=== PATIENT | female | born 1965 | race American Indian/Alaskan Native ===

== ENCOUNTER 2016-11-18 | Outpatient (CLI) | payer MEDICAID | END 2016-11-18 23:59 | disposition critical access hospital (66) | CPT/HCPCS: A0425; A0429 ==

== ENCOUNTER 2016-11-18 21:00 | Emergency (ER) | payer MEDICAID ==
[2016-11-18] MEDS ORDERED: SODIUM CHLORIDE 0.9% 1,000 ML IV ONE (21:14)
[2016-11-18] MEDS ORDERED: NITROFURANTOIN MACRO 100 MG CAPSULE PO STA (21:49)
[2016-11-18] MEDS ORDERED: NITROFURANTOIN MACRO 100 MG CAPSULE PO ONE (21:52)
== END 2016-11-18 21:59 | disposition home or self-care (01) ==
DX: N30.00 Acute cystitis without hematuria (principal)
CPT/HCPCS: 81001; 87086; 99283; 99284; A9270

== ENCOUNTER 2022-07-22 11:35 | Emergency (ER) | payer MEDICAID ==
[2022-07-22 11:46] VITALS: BP 148/78
--- OUTSIDE RECORDS SUMMARY | 2022-07-22 11:48 | EXTERNAL MEDICAL SUMMARY RPT | Continuity of Care Document ---
:1965 Author Organization [facility] Address [address] [place] [address] Phone Allergies and Intolerances date description facility type (no date) aspirin [facility] (unknown) (no date) bupropion [facility] (unknown) (no date) diphenhydramine [facility] (unknown) (no date) doxepin [facility] (unknown) (no date) epinephrine [facility] (unknown) (no date) morphine [facility] (unknown) (no date) olanzapine [facility] (unknown) (no date) zinc [facility] (unknown) Encounters No information. Functional Status No information. Immunizations No information. Medications No information. Problems No information. Procedures No information. Results/Labs test date author facility value unit interpret ation Result panel 1 (unknown) (no (unknown) (unknown) (no value) (units (unk nown) date) unknown) (unknown) (no (unknown) (unknown) [facility] [address] [place] [address] (units (unknown) date) unknown) (unknown) (no (unknown) (unknown) [place], [place] (units ( unknown) date) [id number] unknown) (unknown) (no (unknown) (unknown) [facility] (units (unknown) date) unknown) (unknown) (no (unknown) (unknown) Signed (units (unkno wn) date) unknown) (unknown) (no (unknown) (unknown) XRay Report (units (un known) date) unknown) (unknown) (no (unknown) (unknown) (no value) (units (unk nown) date) unknown) (unknown) (no (unknown) (unknown) 05/24/22 (units (unkno wn) date) unknown) (unknown) (no (unknown) (unknown) Approved by: Usama (units (unknown) date) Mitchell Elizalde on unknown) 05/24/2022 at 9:07 (unknown) (no (unknown) (unknown) Bones and chest (units (unknown) date) wall: No unknown) suspicious bony lesions. Overlying soft tissues (unknown) (no (unknown) (unknown) COMPARISON: (units (un known) date) [facility], unknown) CR, XR CHEST 1V, 10/25/2019, 17:37. (unknown) (no (unknown) (unknown) Dictated by: Usama (units (unknown) date) Mitchell Elizalde on unknown) 05/24/2022 at 9:06 (unknown) (no (unknown) (unknown) FINDINGS: (units (unkn own) date) unknown) (unknown) (no (unknown) (unknown) IMPRESSION: No (units (unknown) date) acute unknown) cardiopulmonary pathology. Stable appearing left hilar (unknown) (no (unknown) (unknown) INDICATIONS: (units (u nknown) date) chest pain unknown) (unknown) (no (unknown) (unknown) Lungs and pleura: (units (unknown) date) Lungs are clear. unknown) No pleural effusions or pneumothorax. (unknown) (no (unknown) (unknown) Mediastinum: (units (u nknown) date) Previously unknown) described left hilar fullness is again seen not (unknown) (no (unknown) (unknown) Surgical changes (units (unknown) date) and devices: None. unknown) (unknown) (no (unknown) (unknown) TECHNIQUE: One (units (unknown) date) view of the chest unknown) was acquired. (unknown) (no (unknown) (unknown) This can be (units (un known) date) further evaluated unknown) with CT of chest as an outpatient if clinically (unknown) (no (unknown) (unknown) changed in (units (unk nown) date) appearance from unknown) prior study. Heart size is normal. (unknown) (no (unknown) (unknown) unremarkable. (units ( unknown) date) unknown) (unknown) (no (unknown) (unknown) [id number] (units (unkno wn) date) unknown) (unknown) (no (unknown) (unknown) Accession Number: (units (unknown) date) [id number] unknown) (unknown) (no (unknown) (unknown) Age/Sex: 57 / F (units (unknown) date) Date of Service: unknown) (unknown) (no (unknown) (unknown) : 1965 (units (unknown) date) Acct:[id number] unknown) (unknown) (no (unknown) (unknown) Loc: ED (units (unkno wn) date) unknown) (unknown) (no (unknown) (unknown) Ordering (units (unkno wn) date) Provider: unknown) Joceline Lara D.O. (unknown) (no (unknown) (unknown) PROCEDURE: XR (units ( unknown) date) CHEST 1V unknown) (unknown) (no (unknown) (unknown) Patient: (units (unkno wn) date) Yenni Robbins unknown) MR#: [id number] (unknown) (no (unknown) (unknown) Procedure: XR (units ( unknown) date) chest 1V unknown) (unknown) (no (unknown) (unknown) appear (units (unkno wn) date) unknown) (unknown) (no (unknown) (unknown) fullness. (units (unkn own) date) unknown) (unknown) (no (unknown) (unknown) indicated. (units (unk nown) date) unknown) (unknown) (no (unknown) (unknown) significantly (units ( unknown) date) unknown) Result panel 2 (unknown) (no (unknown) (unknown) (no value) (units (unk nown) date) unknown) (unknown) (no (unknown) (unknown) Date of Service: (units (unknown) date) 05/24/22 unknown) (unknown) (no (unknown) (unknown) (no value) (units (unk nown) date) unknown) (unknown) (no (unknown) (unknown) 05/24/22 09:47 (units (unknown) date) unknown) (unknown) (no (unknown) (unknown) Allergies (units (unkn own) date) unknown) (unknown) (no (unknown) (unknown) ED Orders (units (unkn own) date) unknown) (unknown) (no (unknown) (unknown) Emergency Report (units (unknown) date) unknown) (unknown) (no (unknown) (unknown) Home Medications (units (unknown) date) unknown) (unknown) (no (unknown) (unknown) [facility] (units (unknown) date) [address] unknown) [place] [address] (unknown) (no (unknown) (unknown) Vital Signs - 8 (units (unknown) date) hr unknown) (unknown) (no (unknown) (unknown) (no value) (units (unk nown) date) unknown) (unknown) (no (unknown) (unknown) No Known Home (units ( unknown) date) Medications unknown) (unknown) (no (unknown) (unknown) 05/24/22 (units (unkno wn) date) unknown) (unknown) (no (unknown) (unknown) Medication (units (unk nown) date) Instructions unknown) Recorded Confirmed (unknown) (no (unknown) (unknown) 05/24/22 09:40 (units (unknown) date) unknown) (unknown) (no (unknown) (unknown) 05/24/22 09:47 (units (unknown) date) unknown) (unknown) (no (unknown) (unknown) 09:41 (units (unkno wn) date) unknown) (unknown) (no (unknown) (unknown) [id number] (units (unkno wn) date) unknown) (unknown) (no (unknown) (unknown) Age/Sex: 57 / F (units (unknown) date) unknown) (unknown) (no (unknown) (unknown) Allergy/AdvReac (units (unknown) date) Type Severity unknown) Reaction Status Date / Time (unknown) (no (unknown) (unknown) Anxiety (Unknown) (units (unknown) date) unknown) (unknown) (no (unknown) (unknown) Arthritis (units (unkn own) date) (Unknown) unknown) (unknown) (no (unknown) (unknown) Blood Pressure (units (unknown) date) 132/83 05/24/22 unknown) 09:41 (unknown) (no (unknown) (unknown) Blood Pressure (units (unknown) date) 132/83 unknown) (unknown) (no (unknown) (unknown) Chief Complaint: (units (unknown) date) Chest Pain unknown) (unknown) (no (unknown) (unknown) Complete Blood (units (unknown) date) Count AUTO DIFF unknown) Stat (unknown) (no (unknown) (unknown) Comprehensive (units ( unknown) date) Metabolic Panel unknown) Stat (unknown) (no (unknown) (unknown) Course (units (unkno wn) date) unknown) (unknown) (no (unknown) (unknown) : 1965 (units (unknown) date) Acct:[id number] unknown) (unknown) (no (unknown) (unknown) Degenerative disc (units (unknown) date) disease (Unknown) unknown) (unknown) (no (unknown) (unknown) Departure (units (unkn own) date) unknown) (unknown) (no (unknown) (unknown) Discharge Plan (units (unknown) date) unknown) (unknown) (no (unknown) (unknown) EKG-12 Lead Stat (units (unknown) date) unknown) (unknown) (no (unknown) (unknown) ER Physician: (units ( unknown) date) Joceline Lara unknown) D.O. (unknown) (no (unknown) (unknown) Exam (units (unkno wn) date) unknown) (unknown) (no (unknown) (unknown) Family History (units (unknown) date) (Reviewed 10/26/19 unknown) @ 01:16 by Bony Bonilla DO) (unknown) (no (unknown) (unknown) General (units (unkno wn) date) unknown) (unknown) (no (unknown) (unknown) H/O tubal (units (unkn own) date) ligation (1987) unknown) (unknown) (no (unknown) (unknown) HPI - Chest Pain (units (unknown) date) unknown) (unknown) (no (unknown) (unknown) Initial Vital (units ( unknown) date) Signs unknown) (unknown) (no (unknown) (unknown) Initial Vital (units ( unknown) date) Signs: unknown) (unknown) (no (unknown) (unknown) Lab Data (units (unkno wn) date) unknown) (unknown) (no (unknown) (unknown) Lipase Stat (units (un known) date) unknown) (unknown) (no (unknown) (unknown) MDM - Chest Pain (units (unknown) date) unknown) (unknown) (no (unknown) (unknown) Magnesium Stat (units (unknown) date) unknown) (unknown) (no (unknown) (unknown) Medical History (units (unknown) date) (Updated 11/09/19 unknown) @ 00:00 by ) (unknown) (no (unknown) (unknown) Mehran Asencio, (units (unknown) date) MD [Primary Care unknown) Provider] - (unknown) (no (unknown) (unknown) Mode of arrival: (units (unknown) date) Ambulatory unknown) (unknown) (no (unknown) (unknown) Mother (units (unknown) date) No problems noted. unknown) (unknown) (no (unknown) (unknown) No Action (units (unkn own) date) unknown) (unknown) (no (unknown) (unknown) No Known Home (units ( unknown) date) Medications unknown) 03/27/18 10/31/19 (unknown) (no (unknown) (unknown) Ordered: (units (unkno wn) date) unknown) (unknown) (no (unknown) (unknown) Orders (units (unkno wn) date) unknown) (unknown) (no (unknown) (unknown) Oxygen Delivery (units (unknown) date) Method 05/24/22 unknown) 09:41 (unknown) (no (unknown) (unknown) Oxygen Delivery (units (unknown) date) Method Room Air unknown) (unknown) (no (unknown) (unknown) PTSD (units (unkno wn) date) (post-traumatic unknown) stress disorder) (Unknown) (unknown) (no (unknown) (unknown) Patient History (units (unknown) date) unknown) (unknown) (no (unknown) (unknown) Patient: (units (unkno wn) date) Yenni Robbins unknown) MR#: [id number] (unknown) (no (unknown) (unknown) Prescriptions: (units (unknown) date) unknown) (unknown) (no (unknown) (unknown) Pulse Oximetry (units (unknown) date) 100 05/24/22 09:41 unknown) (unknown) (no (unknown) (unknown) Pulse Oximetry (units (unknown) date) 100 unknown) (unknown) (no (unknown) (unknown) Pulse Rate 87 (units ( unknown) date) 05/24/22 09:41 unknown) (unknown) (no (unknown) (unknown) Pulse Rate 87 (units ( unknown) date) unknown) (unknown) (no (unknown) (unknown) Referrals: (units (unk nown) date) unknown) (unknown) (no (unknown) (unknown) Related Data (units (u nknown) date) unknown) (unknown) (no (unknown) (unknown) Respiratory Rate (units (unknown) date) 18 05/24/22 09:41 unknown) (unknown) (no (unknown) (unknown) Respiratory Rate (units (unknown) date) 18 unknown) (unknown) (no (unknown) (unknown) Result diagrams: (units (unknown) date) unknown) (unknown) (no (unknown) (unknown) Salivary gland (units (unknown) date) disorder unknown) (unknown) (no (unknown) (unknown) Shoulder pain, (units (unknown) date) left (-2015) unknown) (unknown) (no (unknown) (unknown) Signed By: (units (unk nown) date) unknown) (unknown) (no (unknown) (unknown) Smoking Status: (units (unknown) date) Former smoker unknown) (unknown) (no (unknown) (unknown) Smoking Status: (units (unknown) date) Former smoker unknown) (unknown) (no (unknown) (unknown) Social History (units (unknown) date) (Reviewed 10/26/19 unknown) @ 01:16 by Bony Bonilla DO) (unknown) (no (unknown) (unknown) Source: patient (units (unknown) date) unknown) (unknown) (no (unknown) (unknown) Stated Complaint: (units (unknown) date) Chest pain unknown) (unknown) (no (unknown) (unknown) Substance Use (units ( unknown) date) Type: does not use unknown) (unknown) (no (unknown) (unknown) Surgical History (units (unknown) date) (Reviewed 10/26/19 unknown) @ 01:16 by Bony Bonilla DO) (unknown) (no (unknown) (unknown) Temperature 98.9 (units (unknown) date) F 05/24/22 09:41 unknown) (unknown) (no (unknown) (unknown) Temperature 98.9 (units (unknown) date) F unknown) (unknown) (no (unknown) (unknown) Time Seen by (units (u nknown) date) Provider: 05/24/22 unknown) 09:58 (unknown) (no (unknown) (unknown) Troponin + CK (units ( unknown) date) Cardiac Panel Stat unknown) (unknown) (no (unknown) (unknown) Vital Signs (units (un known) date) unknown) (unknown) (no (unknown) (unknown) Vital signs: (units (u nknown) date) unknown) (unknown) (no (unknown) (unknown) XR chest 1V Stat (units (unknown) date) unknown) (unknown) (no (unknown) (unknown) [DIPHENHYDRAMINE] (units (unknown) date) unknown) (unknown) (no (unknown) (unknown) [Embedded Image (units (unknown) date) Not Available] unknown) (unknown) (no (unknown) (unknown) aspirin [ASPIRIN] (units (unknown) date) Allergy Unknown unknown) Verified 05/24/22 09:45 (unknown) (no (unknown) (unknown) beea venom (units (unk nown) date) Allergy Unknown unknown) Uncoded 05/24/22 09:45 (unknown) (no (unknown) (unknown) bupropion (units (unkn own) date) [BUPROPION] unknown) Allergy Unknown Verified 05/24/22 09:45 (unknown) (no (unknown) (unknown) codiene Allergy (units (unknown) date) Unknown Uncoded unknown) 05/24/22 09:45 (unknown) (no (unknown) (unknown) diphenhydramine (units (unknown) date) Allergy Unknown unknown) Verified 05/24/22 09:45 (unknown) (no (unknown) (unknown) doxepin [DOXEPIN] (units (unknown) date) Allergy Unknown unknown) Verified 05/24/22 09:45 (unknown) (no (unknown) (unknown) epinephrine (units (un known) date) [EPINEPHRINE] unknown) Allergy Unknown Verified 05/24/22 09:45 (unknown) (no (unknown) (unknown) minerals Allergy (units (unknown) date) Unknown Uncoded unknown) 05/24/22 09:45 (unknown) (no (unknown) (unknown) morphine (units (unkno wn) date) [MORPHINE] Allergy unknown) Unknown Verified 05/24/22 09:45 (unknown) (no (unknown) (unknown) olanzapine (units (unk nown) date) [OLANZAPINE] unknown) Allergy Unknown Verified 05/24/22 09:45 (unknown) (no (unknown) (unknown) zinc [ZINC] (units (un known) date) Allergy Unknown unknown) Verified 05/24/22 09:45 Result panel 3 (unknown) (no (unknown) (unknown) (no value) (units (unk nown) date) unknown) (unknown) (no (unknown) (unknown) Date of Service: (units (unknown) date) 05/24/22 unknown) (unknown) (no (unknown) (unknown) (no value) (units (unk nown) date) unknown) (unknown) (no (unknown) (unknown) 05/24/22 09:47 (units (unknown) date) unknown) (unknown) (no (unknown) (unknown) Allergies (units (unkn own) date) unknown) (unknown) (no (unknown) (unknown) ED Orders (units (unkn own) date) unknown) (unknown) (no (unknown) (unknown) Emergency Report (units (unknown) date) unknown) (unknown) (no (unknown) (unknown) Home Medications (units (unknown) date) unknown) (unknown) (no (unknown) (unknown) [facility] (units (unknown) date) [address] [place] [address] unknown) [place] [address] (unknown) (no (unknown) (unknown) Vital Signs - 8 (units (unknown) date) hr unknown) (unknown) (no (unknown) (unknown) (no value) (units (unk nown) date) unknown) (unknown) (no (unknown) (unknown) No Known Home (units ( unknown) date) Medications unknown) (unknown) (no (unknown) (unknown) 05/24/22 (units (unkno wn) date) unknown) (unknown) (no (unknown) (unknown) Medication (units (unk nown) date) Instructions unknown) Recorded Confirmed (unknown) (no (unknown) (unknown) pain. (units (unkno wn) date) unknown) (unknown) (no (unknown) (unknown) 05/24/22 09:40 (units (unknown) date) unknown) (unknown) (no (unknown) (unknown) 05/24/22 09:47 (units (unknown) date) unknown) (unknown) (no (unknown) (unknown) 09:41 (units (unkno wn) date) unknown) (unknown) (no (unknown) (unknown) 12 point review (units (unknown) date) of systems is unknown) negative except for those stated above and HPI (unknown) (no (unknown) (unknown) [id number] (units (unkno wn) date) unknown) (unknown) (no (unknown) (unknown) ABDOMEN: Soft, (units (unknown) date) nontender. unknown) Normoactive bowel sounds all 4 quadrants. No (unknown) (no (unknown) (unknown) Age/Sex: 57 / F (units (unknown) date) unknown) (unknown) (no (unknown) (unknown) Allergy/AdvReac (units (unknown) date) Type Severity unknown) Reaction Status Date / Time (unknown) (no (unknown) (unknown) Anxiety (Unknown) (units (unknown) date) unknown) (unknown) (no (unknown) (unknown) Arthritis (units (unkn own) date) (Unknown) unknown) (unknown) (no (unknown) (unknown) Blood Pressure (units (unknown) date) 132/83 05/24/22 unknown) 09:41 (unknown) (no (unknown) (unknown) Blood Pressure (units (unknown) date) 13283 unknown) (unknown) (no (unknown) (unknown) CARDIOVASCULAR: (units (unknown) date) Denies chest pain, unknown) palpitations, orthopnea, edema (unknown) (no (unknown) (unknown) CARDIOVASCULAR: (units (unknown) date) Regular rate and unknown) rhythm without murmurs, rubs or gallops. (unknown) (no (unknown) (unknown) Chief Complaint: (units (unknown) date) Chest Pain unknown) (unknown) (no (unknown) (unknown) Complete Blood (units (unknown) date) Count AUTO DIFF unknown) Stat (unknown) (no (unknown) (unknown) Comprehensive (units ( unknown) date) Metabolic Panel unknown) Stat (unknown) (no (unknown) (unknown) Course (units (unkno wn) date) unknown) (unknown) (no (unknown) (unknown) : 1965 (units (unknown) date) Acct:[id number] unknown) (unknown) (no (unknown) (unknown) Degenerative disc (units (unknown) date) disease (Unknown) unknown) (unknown) (no (unknown) (unknown) Departure (units (unkn own) date) unknown) (unknown) (no (unknown) (unknown) Discharge Plan (units (unknown) date) unknown) (unknown) (no (unknown) (unknown) ECG Data (units (unkno wn) date) unknown) (unknown) (no (unknown) (unknown) EKG-12 Lead Stat (units (unknown) date) unknown) (unknown) (no (unknown) (unknown) ER Physician: (units ( unknown) date) Joceline Lara unknown) D.O. (unknown) (no (unknown) (unknown) EXTREMITIES: (units (u nknown) date) Normal range of unknown) motion, no clubbing or edema. Neurovascularly (unknown) (no (unknown) (unknown) Exam (units (unkno wn) date) unknown) (unknown) (no (unknown) (unknown) Family History (units (unknown) date) (Reviewed 05/24/22 unknown) @ 10:21 by Joceline Lara DO) (unknown) (no (unknown) (unknown) GASTROINTESTINAL: (units (unknown) date) Denies nausea, unknown) vomiting, abdominal pain, diarrhea, (unknown) (no (unknown) (unknown) GENERAL: Pleasant (units (unknown) date) alert 57-year-old unknown) female (unknown) (no (unknown) (unknown) GENERAL: Denies (units (unknown) date) chills, fatigue, unknown) malaise, fever, sweats, travel (unknown) (no (unknown) (unknown) : Denies (units (unkn own) date) dysuria, unknown) frequency, incontinence, hematuria, urinary retention, flank (unknown) (no (unknown) (unknown) General (units (unkno wn) date) unknown) (unknown) (no (unknown) (unknown) H/O tubal (units (unkn own) date) ligation (1986) unknown) (unknown) (no (unknown) (unknown) HEENT: Denies (units ( unknown) date) sinus pain, ear unknown) pain, sore throat, difficulty swallowing, neck (unknown) (no (unknown) (unknown) HEENT: Head (units (un known) date) atraumatic,EOMI, unknown) pupils reactive, face symmetric, moist mucous (unknown) (no (unknown) (unknown) HPI - Chest Pain (units (unknown) date) unknown) (unknown) (no (unknown) (unknown) HPI narrative: (units (unknown) date) unknown) (unknown) (no (unknown) (unknown) History of (units (unk nown) date) Present Illness unknown) (unknown) (no (unknown) (unknown) Initial Vital (units ( unknown) date) Signs unknown) (unknown) (no (unknown) (unknown) Initial Vital (units ( unknown) date) Signs: unknown) (unknown) (no (unknown) (unknown) Interpretation: (units (unknown) date) unknown) (unknown) (no (unknown) (unknown) October she was (units (unknown) date) very active able unknown) to do 51 pushups at a time she was training. (unknown) (no (unknown) (unknown) Lab Data (units (unkno wn) date) unknown) (unknown) (no (unknown) (unknown) Lipase Stat (units (un known) date) unknown) (unknown) (no (unknown) (unknown) MDM - Chest Pain (units (unknown) date) unknown) (unknown) (no (unknown) (unknown) MUSCULOSKELETAL: (units (unknown) date) Denies weakness, unknown) joint pain, or bony pain (unknown) (no (unknown) (unknown) Magnesium Stat (units (unknown) date) unknown) (unknown) (no (unknown) (unknown) Medical History (units (unknown) date) (Reviewed 05/24/22 unknown) @ 10:21 by Joceline Lara DO) (unknown) (no (unknown) (unknown) Mehran Asencio, (units (unknown) date) MD [Primary Care unknown) Provider] - (unknown) (no (unknown) (unknown) Mode of arrival: (units (unknown) date) Ambulatory unknown) (unknown) (no (unknown) (unknown) Mother (units (unknown) date) No problems noted. unknown) (unknown) (no (unknown) (unknown) NEUROLOGIC: (units (un known) date) Denies weakness, unknown) dizziness, headache, numbness, change in speech, (unknown) (no (unknown) (unknown) NEUROLOGICAL: (units ( unknown) date) Alert and oriented unknown) x4.Normal gait and speech. (unknown) (no (unknown) (unknown) Narrative: (units (unk nown) date) unknown) (unknown) (no (unknown) (unknown) No Action (units (unkn own) date) unknown) (unknown) (no (unknown) (unknown) No Known Home (units ( unknown) date) Medications unknown) 03/27/18 10/31/19 (unknown) (no (unknown) (unknown) Normal sinus (units (u nknown) date) rhythm rate 85 NE unknown) interval 130 QRS [address] changes or T- (unknown) (no (unknown) (unknown) Ordered: (units (unkno wn) date) unknown) (unknown) (no (unknown) (unknown) Orders (units (unkno wn) date) unknown) (unknown) (no (unknown) (unknown) Oxygen Delivery (units (unknown) date) Method 05/24/22 unknown) 09:41 (unknown) (no (unknown) (unknown) Oxygen Delivery (units (unknown) date) Method Room Air unknown) (unknown) (no (unknown) (unknown) PSYCHIATRIC: No (units (unknown) date) concerning unknown) psychosocial issues. (unknown) (no (unknown) (unknown) PTSD (units (unkno wn) date) (post-traumatic unknown) stress disorder) (Unknown) (unknown) (no (unknown) (unknown) Patient History (units (unknown) date) unknown) (unknown) (no (unknown) (unknown) Patient is a (units (u nknown) date) 57-year-old female unknown) who does not go to doctors presenting with (unknown) (no (unknown) (unknown) Patient: (units (unkno wn) date) Yenni Robbins F unknown) MR#: [id number] (unknown) (no (unknown) (unknown) Prescriptions: (units (unknown) date) unknown) (unknown) (no (unknown) (unknown) Pulse Oximetry (units (unknown) date) 100 05/24/22 09:41 unknown) (unknown) (no (unknown) (unknown) Pulse Oximetry (units (unknown) date) 100 unknown) (unknown) (no (unknown) (unknown) Pulse Rate 87 (units ( unknown) date) 05/24/22 09:41 unknown) (unknown) (no (unknown) (unknown) Pulse Rate 87 (units ( unknown) date) unknown) (unknown) (no (unknown) (unknown) RESPIRATORY: See (units (unknown) date) HPI unknown) (unknown) (no (unknown) (unknown) RESPIRATORY: (units (u nknown) date) Breath sounds unknown) equal bilaterally, no wheezes rales or rhonchi. (unknown) (no (unknown) (unknown) Referrals: (units (unk nown) date) unknown) (unknown) (no (unknown) (unknown) Related Data (units (u nknown) date) unknown) (unknown) (no (unknown) (unknown) Respiratory Rate (units (unknown) date) 18 05/24/22 09:41 unknown) (unknown) (no (unknown) (unknown) Respiratory Rate (units (unknown) date) 18 unknown) (unknown) (no (unknown) (unknown) Result diagrams: (units (unknown) date) unknown) (unknown) (no (unknown) (unknown) Review of Systems (units (unknown) date) unknown) (unknown) (no (unknown) (unknown) SKIN: No rash, no (units (unknown) date) erythema, no unknown) pruritus (unknown) (no (unknown) (unknown) SKIN: Warm, dry, (units (unknown) date) no laceration, no unknown) petechiae, no rashes or lesions. (unknown) (no (unknown) (unknown) Salivary gland (units (unknown) date) disorder unknown) (unknown) (no (unknown) (unknown) Shoulder pain, (units (unknown) date) left (-2015) unknown) (unknown) (no (unknown) (unknown) Signed By: (units (unk nown) date) unknown) (unknown) (no (unknown) (unknown) Since February she has (units (unknown) date) also lost unknown) significant amount of weight without trying. She (unknown) (no (unknown) (unknown) Smoking Status: (units (unknown) date) Former smoker unknown) (unknown) (no (unknown) (unknown) Smoking Status: (units (unknown) date) Former smoker unknown) (unknown) (no (unknown) (unknown) Social History (units (unknown) date) (Reviewed 05/24/22 unknown) @ 10:21 by Joceline Lara DO) (unknown) (no (unknown) (unknown) Source: patient (units (unknown) date) unknown) (unknown) (no (unknown) (unknown) Stated Complaint: (units (unknown) date) Chest pain unknown) (unknown) (no (unknown) (unknown) Substance Use (units ( unknown) date) Type: does not use unknown) (unknown) (no (unknown) (unknown) Surgical History (units (unknown) date) (Reviewed 05/24/22 unknown) @ 10:21 by Joceline Lara DO) (unknown) (no (unknown) (unknown) Temperature 98.9 (units (unknown) date) F 05/24/22 09:41 unknown) (unknown) (no (unknown) (unknown) Temperature 98.9 (units (unknown) date) F unknown) (unknown) (no (unknown) (unknown) Time Seen by (units (u nknown) date) Provider: 05/24/22 unknown) 09:58 (unknown) (no (unknown) (unknown) Troponin + CK (units ( unknown) date) Cardiac Panel Stat unknown) (unknown) (no (unknown) (unknown) Vital Signs (units (un known) date) unknown) (unknown) (no (unknown) (unknown) Vital signs: (units (u nknown) date) unknown) (unknown) (no (unknown) (unknown) XR chest 1V Stat (units (unknown) date) unknown) (unknown) (no (unknown) (unknown) [DIPHENHYDRAMINE] (units (unknown) date) unknown) (unknown) (no (unknown) (unknown) [Embedded Image (units (unknown) date) Not Available] unknown) (unknown) (no (unknown) (unknown) aspirin [ASPIRIN] (units (unknown) date) Allergy Unknown unknown) Verified 05/24/22 09:45 (unknown) (no (unknown) (unknown) beea venom (units (unk nown) date) Allergy Unknown unknown) Uncoded 05/24/22 09:45 (unknown) (no (unknown) (unknown) been ongoing since (units (unknown) date) February of 2022. She unknown) has had increasing shortness of breath with (unknown) (no (unknown) (unknown) bupropion (units (unkn own) date) [BUPROPION] unknown) Allergy Unknown Verified 05/24/22 09:45 (unknown) (no (unknown) (unknown) can no longer (units ( unknown) date) full flight of unknown) stairs. Which is very abnormal for her she in (unknown) (no (unknown) (unknown) codiene Allergy (units (unknown) date) Unknown Uncoded unknown) 05/24/22 09:45 (unknown) (no (unknown) (unknown) confusion (units (unkn own) date) unknown) (unknown) (no (unknown) (unknown) constipation, (units ( unknown) date) melena. unknown) (unknown) (no (unknown) (unknown) denies any blood (units (unknown) date) in her stool. unknown) (unknown) (no (unknown) (unknown) diphenhydramine (units (unknown) date) Allergy Unknown unknown) Verified 05/24/22 09:45 (unknown) (no (unknown) (unknown) doxepin [DOXEPIN] (units (unknown) date) Allergy Unknown unknown) Verified 05/24/22 09:45 (unknown) (no (unknown) (unknown) epinephrine (units (un known) date) [EPINEPHRINE] unknown) Allergy Unknown Verified 05/24/22 09:45 (unknown) (no (unknown) (unknown) exertion since (units (unknown) date) then as well. As unknown) gotten worse over last 3 days. She says she (unknown) (no (unknown) (unknown) guarding or (units (un known) date) rebound.s unknown) (unknown) (no (unknown) (unknown) intact (units (unkno wn) date) unknown) (unknown) (no (unknown) (unknown) membranes (units (unkn own) date) unknown) (unknown) (no (unknown) (unknown) minerals Allergy (units (unknown) date) Unknown Uncoded unknown) 05/24/22 09:45 (unknown) (no (unknown) (unknown) morphine (units (unkno wn) date) [MORPHINE] Allergy unknown) Unknown Verified 05/24/22 09:45 (unknown) (no (unknown) (unknown) olanzapine (units (unk nown) date) [OLANZAPINE] unknown) Allergy Unknown Verified 05/24/22 09:45 (unknown) (no (unknown) (unknown) pain (units (unkno wn) date) unknown) (unknown) (no (unknown) (unknown) shortness of (units (un known) date) breath and chest unknown) fluttering which she thinks is her lung. This has (unknown) (no (unknown) (unknown) wave inversion (units (unknown) date) unknown) (unknown) (no (unknown) (unknown) zinc [ZINC] (units (un known) date) Allergy Unknown unknown) Verified 05/24/22 09:45 Result panel 4 (unknown) (no date) (unknown) (unknown) 0 /uL (unkn own) (unknown) (no date) (unknown) (unknown) 0.5 % (unkn own) (unknown) (no date) (unknown) (unknown) 0.8 % (unkn own) (unknown) (no date) (unknown) (unknown) 100 /uL (unkn own) (unknown) (no date) (unknown) (unknown) 13.6 % (unkn own) (unknown) (no date) (unknown) (unknown) 15.0 g/dL (unkn own) (unknown) (no date) (unknown) (unknown) 2300 /uL (unkn own) (unknown) (no date) (unknown) (unknown) 27.0 % (unkn own) (unknown) (no date) (unknown) (unknown) 28.7 PG (unkn own) (unknown) (no date) (unknown) (unknown) 289 X10 3/uL (unkn own) (unknown) (no date) (unknown) (unknown) 34.7 % (unkn own) (unknown) (no date) (unknown) (unknown) 43.2 % (unkn own) (unknown) (no date) (unknown) (unknown) 5.22 X10 6/uL (unkn own) (unknown) (no date) (unknown) (unknown) 5.9 % (unkn own) (unknown) (no date) (unknown) (unknown) 500 /uL (unkn own) (unknown) (no date) (unknown) (unknown) 5500 /uL (unkn own) (unknown) (no date) (unknown) (unknown) 65.8 % (unkn own) (unknown) (no date) (unknown) (unknown) 8.4 X10 3/uL (unkn own) (unknown) (no date) (unknown) (unknown) 82.7 fL (unkn own) Result panel 5 (unknown) (no date) (unknown) (unknown) > 60 mL/min (unkn own) (unknown) (no date) (unknown) (unknown) 0.5 mg/dL (unkn own) (unknown) (no date) (unknown) (unknown) 0.74 mg/dL (unkn own) (unknown) (no date) (unknown) (unknown) 1.9 (units (unkn own) unknown) (unknown) (no date) (unknown) (unknown) 107 U/L (unkn own) (unknown) (no date) (unknown) (unknown) 13 mg/dL (unkn own) (unknown) (no date) (unknown) (unknown) 137 mg/dL (unkn own) (unknown) (no date) (unknown) (unknown) 137 mmol/L (unkn own) (unknown) (no date) (unknown) (unknown) 17.6 (units (unkn own) unknown) (unknown) (no date) (unknown) (unknown) 2.1 mg/dL (unkn own) (unknown) (no date) (unknown) (unknown) 2.6 g/dL (unkn own) (unknown) (no date) (unknown) (unknown) 27 IU/L (unkn own) (unknown) (no date) (unknown) (unknown) 29 IU/L (unkn own) (unknown) (no date) (unknown) (unknown) 29 mmol/L (unkn own) (unknown) (no date) (unknown) (unknown) 3.6 mmol/L (unkn own) (unknown) (no date) (unknown) (unknown) 5.0 g/dL (unkn own) (unknown) (no date) (unknown) (unknown) 57 U/L (unkn own) (unknown) (no date) (unknown) (unknown) 66 U/L (unkn own) (unknown) (no date) (unknown) (unknown) 7.6 g/dL (unkn own) (unknown) (no date) (unknown) (unknown) 9.2 mg/dL (unkn own) (unknown) (no date) (unknown) (unknown) 99 mmol/L (unkn own) (unknown) (no date) (unknown) (unknown) Test not % (unkn own) performed (unknown) (no date) (unknown) (unknown) Test not ng/mL (unkn own) performed Result panel 6 (unknown) (no date) (unknown) (unknown) > 60 mL/min (unkn own) (unknown) (no date) (unknown) (unknown) < 0.012 ng/mL (unkn own) (unknown) (no date) (unknown) (unknown) 0.5 mg/dL (unkn own) (unknown) (no date) (unknown) (unknown) 0.74 mg/dL (unkn own) (unknown) (no date) (unknown) (unknown) 1.9 (units (unkn own) unknown) (unknown) (no date) (unknown) (unknown) 107 U/L (unkn own) (unknown) (no date) (unknown) (unknown) 13 mg/dL (unkn own) (unknown) (no date) (unknown) (unknown) 137 mg/dL (unkn own) (unknown) (no date) (unknown) (unknown) 137 mmol/L (unkn own) (unknown) (no date) (unknown) (unknown) 17.6 (units (unkn own) unknown) (unknown) (no date) (unknown) (unknown) 2.1 mg/dL (unkn own) (unknown) (no date) (unknown) (unknown) 2.6 g/dL (unkn own) (unknown) (no date) (unknown) (unknown) 27 IU/L (unkn own) (unknown) (no date) (unknown) (unknown) 29 IU/L (unkn own) (unknown) (no date) (unknown) (unknown) 29 mmol/L (unkn own) (unknown) (no date) (unknown) (unknown) 3.6 mmol/L (unkn own) (unknown) (no date) (unknown) (unknown) 5.0 g/dL (unkn own) (unknown) (no date) (unknown) (unknown) 57 U/L (unkn own) (unknown) (no date) (unknown) (unknown) 66 U/L (unkn own) (unknown) (no date) (unknown) (unknown) 7.6 g/dL (unkn own) (unknown) (no date) (unknown) (unknown) 9.2 mg/dL (unkn own) (unknown) (no date) (unknown) (unknown) 99 mmol/L (unkn own) (unknown) (no date) (unknown) (unknown) Test not % (unkn own) performed (unknown) (no date) (unknown) (unknown) Test not ng/mL (unkn own) performed Result panel 7 (unknown) (no date) (unknown) (unknown) 210 ng/mL (unkn own) Result panel 8 (unknown) (no date) (unknown) (unknown) 39 pg/mL (unkn own) Result panel 9 (unknown) (no (unknown) (unknown) (no value) (units (unk nown) date) unknown) (unknown) (no (unknown) (unknown) Date of Service: (units (unknown) date) 05/24/22 unknown) (unknown) (no (unknown) (unknown) (no value) (units (unk nown) date) unknown) (unknown) (no (unknown) (unknown) 05/24/22 09:47 (units (unknown) date) unknown) (unknown) (no (unknown) (unknown) Allergies (units (unkn own) date) unknown) (unknown) (no (unknown) (unknown) ED Orders (units (unkn own) date) unknown) (unknown) (no (unknown) (unknown) Emergency Report (units (unknown) date) unknown) (unknown) (no (unknown) (unknown) Home Medications (units (unknown) date) unknown) (unknown) (no (unknown) (unknown) [facility] (units (unknown) date) [address] [place] [address] unknown) [place] [address] (unknown) (no (unknown) (unknown) Lab Results (units (un known) date) unknown) (unknown) (no (unknown) (unknown) Vital Signs - 8 (units (unknown) date) hr unknown) (unknown) (no (unknown) (unknown) (no value) (units (unk nown) date) unknown) (unknown) (no (unknown) (unknown) 05/24/22 05/24/22 (units (unknown) date) 05/24/22 unknown) Range/Units (unknown) (no (unknown) (unknown) 05/24/22 (units (unkno wn) date) Range/Units unknown) (unknown) (no (unknown) (unknown) 09:47 (units (unkno wn) date) unknown) (unknown) (no (unknown) (unknown) 09:47 09:47 09:47 (units (unknown) date) unknown) (unknown) (no (unknown) (unknown) No Known Home (units ( unknown) date) Medications unknown) (unknown) (no (unknown) (unknown) 05/24/22 (units (unkno wn) date) unknown) (unknown) (no (unknown) (unknown) Medication (units (unk nown) date) Instructions unknown) Recorded Confirmed (unknown) (no (unknown) (unknown) pain. (units (unkno wn) date) unknown) (unknown) (no (unknown) (unknown) 05/24/22 09:40 (units (unknown) date) unknown) (unknown) (no (unknown) (unknown) 05/24/22 09:47 (units (unknown) date) unknown) (unknown) (no (unknown) (unknown) 09:41 (units (unkno wn) date) unknown) (unknown) (no (unknown) (unknown) 12 point review (units (unknown) date) of systems is unknown) negative except for those stated above and HPI (unknown) (no (unknown) (unknown) [id number] (units (unkno wn) date) unknown) (unknown) (no (unknown) (unknown) ABDOMEN: Soft, (units (unknown) date) nontender. unknown) Normoactive bowel sounds all 4 quadrants. No (unknown) (no (unknown) (unknown) ALT (<35) IU/L (units (unknown) date) unknown) (unknown) (no (unknown) (unknown) ALT 27 (<35) IU/L (units (unknown) date) unknown) (unknown) (no (unknown) (unknown) AST (14-36) IU/L (units (unknown) date) unknown) (unknown) (no (unknown) (unknown) AST 29 (14-36) (units (unknown) date) IU/L unknown) (unknown) (no (unknown) (unknown) Age/Sex: 57 / F (units (unknown) date) unknown) (unknown) (no (unknown) (unknown) Albumin (3.5-5.0) (units (unknown) date) g/dL unknown) (unknown) (no (unknown) (unknown) Albumin 5.0 (units (un known) date) (3.5-5.0) g/dL unknown) (unknown) (no (unknown) (unknown) Albumin/Globulin (units (unknown) date) Ratio (1.0-2.8) unknown) (unknown) (no (unknown) (unknown) Albumin/Globulin (units (unknown) date) Ratio 1.9 unknown) (1.0-2.8) (unknown) (no (unknown) (unknown) Alkaline (units (unkno wn) date) Phosphatase unknown) (38-126) U/L (unknown) (no (unknown) (unknown) Alkaline (units (unkno wn) date) Phosphatase 66 unknown) (38-126) U/L (unknown) (no (unknown) (unknown) Allergy/AdvReac (units (unknown) date) Type Severity unknown) Reaction Status Date / Time (unknown) (no (unknown) (unknown) Anxiety (Unknown) (units (unknown) date) unknown) (unknown) (no (unknown) (unknown) Arthritis (units (unkn own) date) (Unknown) unknown) (unknown) (no (unknown) (unknown) BNP [NT-proBNP (units (unknown) date) (BNP-Adult 18+)] unknown) Stat (unknown) (no (unknown) (unknown) BUN (7-17) mg/dL (units (unknown) date) unknown) (unknown) (no (unknown) (unknown) BUN 13 (7-17) (units ( unknown) date) mg/dL unknown) (unknown) (no (unknown) (unknown) BUN/Creatinine (units (unknown) date) Ratio (6-22) unknown) (unknown) (no (unknown) (unknown) BUN/Creatinine (units (unknown) date) Ratio 17.6 (6-22) unknown) (unknown) (no (unknown) (unknown) Baso # (Auto) (units ( unknown) date) (0-100) /uL unknown) (unknown) (no (unknown) (unknown) Baso # (Auto) 0 (units (unknown) date) (0-100) /uL unknown) (unknown) (no (unknown) (unknown) Baso % (Auto) (units ( unknown) date) (0-2) % unknown) (unknown) (no (unknown) (unknown) Baso % (Auto) 0.5 (units (unknown) date) (0-2) % unknown) (unknown) (no (unknown) (unknown) Blood Pressure (units (unknown) date) 132/83 05/24/22 unknown) 09:41 (unknown) (no (unknown) (unknown) Blood Pressure (units (unknown) date) 132 unknown) (unknown) (no (unknown) (unknown) CARDIOVASCULAR: (units (unknown) date) Denies chest pain, unknown) palpitations, orthopnea, edema (unknown) (no (unknown) (unknown) CARDIOVASCULAR: (units (unknown) date) Regular rate and unknown) rhythm without murmurs, rubs or gallops. (unknown) (no (unknown) (unknown) CK-MB (CK-2) (units (u nknown) date) unknown) (unknown) (no (unknown) (unknown) CK-MB (CK-2) TNP (units (unknown) date) unknown) (unknown) (no (unknown) (unknown) CK-MB (CK-2) Rel (units (unknown) date) Index unknown) (unknown) (no (unknown) (unknown) CK-MB (CK-2) Rel (units (unknown) date) Index TNP unknown) (unknown) (no (unknown) (unknown) Calcium (units (unkno wn) date) (8.4-10.2) mg/dL unknown) (unknown) (no (unknown) (unknown) Calcium 9.2 (units (un known) date) (8.4-10.2) mg/dL unknown) (unknown) (no (unknown) (unknown) Carbon Dioxide (units (unknown) date) (22-32) mmol/L unknown) (unknown) (no (unknown) (unknown) Carbon Dioxide 29 (units (unknown) date) (22-32) mmol/L unknown) (unknown) (no (unknown) (unknown) Chief Complaint: (units (unknown) date) Chest Pain unknown) (unknown) (no (unknown) (unknown) Chloride (98-107) (units (unknown) date) mmol/L unknown) (unknown) (no (unknown) (unknown) Chloride 99 (units (un known) date) (98-107) mmol/L unknown) (unknown) (no (unknown) (unknown) Complete Blood (units (unknown) date) Count AUTO DIFF unknown) Stat (unknown) (no (unknown) (unknown) Comprehensive (units ( unknown) date) Metabolic Panel unknown) Stat (unknown) (no (unknown) (unknown) Course (units (unkno wn) date) unknown) (unknown) (no (unknown) (unknown) Creatinine (units (unk nown) date) (0.52-1.04) mg/dL unknown) (unknown) (no (unknown) (unknown) Creatinine 0.74 (units (unknown) date) (0.52-1.04) mg/dL unknown) (unknown) (no (unknown) (unknown) D Dimer Stat (units (u nknown) date) unknown) (unknown) (no (unknown) (unknown) D-Dimer 210 (units (un known) date) (<230) ng/mL unknown) (unknown) (no (unknown) (unknown) D-Dimer (<230) (units (unknown) date) ng/mL unknown) (unknown) (no (unknown) (unknown) : 1965 (units (unknown) date) Acct:[id number] unknown) (unknown) (no (unknown) (unknown) Degenerative disc (units (unknown) date) disease (Unknown) unknown) (unknown) (no (unknown) (unknown) Departure (units (unkn own) date) unknown) (unknown) (no (unknown) (unknown) Discharge Plan (units (unknown) date) unknown) (unknown) (no (unknown) (unknown) ECG Data (units (unkno wn) date) unknown) (unknown) (no (unknown) (unknown) EKG-12 Lead Stat (units (unknown) date) unknown) (unknown) (no (unknown) (unknown) ER Physician: (units ( unknown) date) Joceline Lara unknown) D.O. (unknown) (no (unknown) (unknown) EXTREMITIES: (units (u nknown) date) Normal range of unknown) motion, no clubbing or edema. Neurovascularly (unknown) (no (unknown) (unknown) Eos # (Auto) (units (u nknown) date) (0-450) /uL unknown) (unknown) (no (unknown) (unknown) Eos # (Auto) 100 (units (unknown) date) (0-450) /uL unknown) (unknown) (no (unknown) (unknown) Eos % (Auto) (units (u nknown) date) (2-4) % unknown) (unknown) (no (unknown) (unknown) Eos % (Auto) 0.8 (units (unknown) date) L (2-4) % unknown) (unknown) (no (unknown) (unknown) Estimated GFR > (units (unknown) date) 60 (>60) mL/min unknown) (unknown) (no (unknown) (unknown) Estimated GFR (units ( unknown) date) (>60) mL/min unknown) (unknown) (no (unknown) (unknown) Exam (units (unkno wn) date) unknown) (unknown) (no (unknown) (unknown) Family History (units (unknown) date) (Reviewed 05/24/22 unknown) @ 10:21 by Joceline Lara DO) (unknown) (no (unknown) (unknown) GASTROINTESTINAL: (units (unknown) date) Denies nausea, unknown) vomiting, abdominal pain, diarrhea, (unknown) (no (unknown) (unknown) GENERAL: Pleasant (units (unknown) date) alert 57-year-old unknown) female (unknown) (no (unknown) (unknown) GENERAL: Denies (units (unknown) date) chills, fatigue, unknown) malaise, fever, sweats, travel (unknown) (no (unknown) (unknown) : Denies (units (unkn own) date) dysuria, unknown) frequency, incontinence, hematuria, urinary retention, flank (unknown) (no (unknown) (unknown) General (units (unkno wn) date) unknown) (unknown) (no (unknown) (unknown) GenericComposite[ (units (unknown) date) Plt Count unknown) (150-400) X10^3/uL ] (unknown) (no (unknown) (unknown) GenericComposite[ (units (unknown) date) Plt Count 289 unknown) (150-400) X10^3/uL ] (unknown) (no (unknown) (unknown) GenericComposite[ (units (unknown) date) RBC (4.0-5.2) unknown) X10^6/uL ] (unknown) (no (unknown) (unknown) GenericComposite[ (units (unknown) date) RBC 5.22 H unknown) (4.0-5.2) X10^6/uL ] (unknown) (no (unknown) (unknown) GenericComposite[ (units (unknown) date) WBC (4.5-11.0) unknown) X10^3/uL ] (unknown) (no (unknown) (unknown) GenericComposite[ (units (unknown) date) WBC 8.4 (4.5-11.0) unknown) X10^3/uL ] (unknown) (no (unknown) (unknown) Globulin (units (unkno wn) date) (1.7-4.1) g/dL unknown) (unknown) (no (unknown) (unknown) Globulin 2.6 (units (u nknown) date) (1.7-4.1) g/dL unknown) (unknown) (no (unknown) (unknown) Glucose (70-100) (units (unknown) date) mg/dL unknown) (unknown) (no (unknown) (unknown) Glucose 137 H (units ( unknown) date) (70-100) mg/dL unknown) (unknown) (no (unknown) (unknown) H/O tubal (units (unkn own) date) ligation (1986) unknown) (unknown) (no (unknown) (unknown) HEENT: Denies (units ( unknown) date) sinus pain, ear unknown) pain, sore throat, difficulty swallowing, neck (unknown) (no (unknown) (unknown) HEENT: Head (units (un known) date) atraumatic,EOMI, unknown) pupils reactive, face symmetric, moist mucous (unknown) (no (unknown) (unknown) HPI - Chest Pain (units (unknown) date) unknown) (unknown) (no (unknown) (unknown) HPI narrative: (units (unknown) date) unknown) (unknown) (no (unknown) (unknown) Hct (36-46) % (units ( unknown) date) unknown) (unknown) (no (unknown) (unknown) Hct 43.2 (36-46) (units (unknown) date) % unknown) (unknown) (no (unknown) (unknown) Hgb (12.0-16.0) (units (unknown) date) g/dL unknown) (unknown) (no (unknown) (unknown) Hgb 15.0 (units (unkno wn) date) (12.0-16.0) g/dL unknown) (unknown) (no (unknown) (unknown) History of (units (unk nown) date) Present Illness unknown) (unknown) (no (unknown) (unknown) Initial Vital (units ( unknown) date) Signs unknown) (unknown) (no (unknown) (unknown) Initial Vital (units ( unknown) date) Signs: unknown) (unknown) (no (unknown) (unknown) Interpretation: (units (unknown) date) unknown) (unknown) (no (unknown) (unknown) October she was (units (unknown) date) very active able unknown) to do 51 pushups at a time she was training. (unknown) (no (unknown) (unknown) Lab Data (units (unkno wn) date) unknown) (unknown) (no (unknown) (unknown) Labs: (units (unkno wn) date) unknown) (unknown) (no (unknown) (unknown) Lipase (23-300) (units (unknown) date) U/L unknown) (unknown) (no (unknown) (unknown) Lipase 107 (units (unk nown) date) (23-300) U/L unknown) (unknown) (no (unknown) (unknown) Lipase Stat (units (un known) date) unknown) (unknown) (no (unknown) (unknown) Lymph # (Auto) (units (unknown) date) (4245-1382) /uL unknown) (unknown) (no (unknown) (unknown) Lymph # (Auto) (units (unknown) date) 2300 (3848-6787) unknown) /uL (unknown) (no (unknown) (unknown) Lymph % (Auto) (units (unknown) date) (25-40) % unknown) (unknown) (no (unknown) (unknown) Lymph % (Auto) (units (unknown) date) 27.0 (25-40) % unknown) (unknown) (no (unknown) (unknown) MCH (26-34) PG (units (unknown) date) unknown) (unknown) (no (unknown) (unknown) MCH 28.7 (26-34) (units (unknown) date) PG unknown) (unknown) (no (unknown) (unknown) MCHC (30-36) % (units (unknown) date) unknown) (unknown) (no (unknown) (unknown) MCHC 34.7 (30-36) (units (unknown) date) % unknown) (unknown) (no (unknown) (unknown) MCV (80-100) fL (units (unknown) date) unknown) (unknown) (no (unknown) (unknown) MCV 82.7 (80-100) (units (unknown) date) fL unknown) (unknown) (no (unknown) (unknown) MDM - Chest Pain (units (unknown) date) unknown) (unknown) (no (unknown) (unknown) MUSCULOSKELETAL: (units (unknown) date) Denies weakness, unknown) joint pain, or bony pain (unknown) (no (unknown) (unknown) Magnesium (units (unkn own) date) (1.6-2.3) mg/dL unknown) (unknown) (no (unknown) (unknown) Magnesium 2.1 (units ( unknown) date) (1.6-2.3) mg/dL unknown) (unknown) (no (unknown) (unknown) Magnesium Stat (units (unknown) date) unknown) (unknown) (no (unknown) (unknown) Medical History (units (unknown) date) (Reviewed 05/24/22 unknown) @ 10:21 by Joceline Lara DO) (unknown) (no (unknown) (unknown) Mehran Asencio, (units (unknown) date) MD [Primary Care unknown) Provider] - (unknown) (no (unknown) (unknown) Mode of arrival: (units (unknown) date) Ambulatory unknown) (unknown) (no (unknown) (unknown) Kings # (Auto) (units ( unknown) date) (0-900) /uL unknown) (unknown) (no (unknown) (unknown) Kings # (Auto) 500 (units (unknown) date) (0-900) /uL unknown) (unknown) (no (unknown) (unknown) Kings % (Auto) (units ( unknown) date) (3-14) % unknown) (unknown) (no (unknown) (unknown) Kings % (Auto) 5.9 (units (unknown) date) (3-14) % unknown) (unknown) (no (unknown) (unknown) Mother (units (unknown) date) No problems noted. unknown) (unknown) (no (unknown) (unknown) NEUROLOGIC: (units (un known) date) Denies weakness, unknown) dizziness, headache, numbness, change in speech, (unknown) (no (unknown) (unknown) NEUROLOGICAL: (units ( unknown) date) Alert and oriented unknown) x4.Normal gait and speech. (unknown) (no (unknown) (unknown) NT-Pro-B (units (unkno wn) date) Natriuret Pep unknown) (<125) pg/mL (unknown) (no (unknown) (unknown) NT-Pro-B (units (unkno wn) date) Natriuret Pep 39 unknown) (<125) pg/mL (unknown) (no (unknown) (unknown) Narrative: (units (unk nown) date) unknown) (unknown) (no (unknown) (unknown) Neut # (Auto) (units ( unknown) date) (7075-1155) /uL unknown) (unknown) (no (unknown) (unknown) Neut # (Auto) (units ( unknown) date) 5500 (0330-9869) unknown) /uL (unknown) (no (unknown) (unknown) Neut % (Auto) (units ( unknown) date) (50-75) % unknown) (unknown) (no (unknown) (unknown) Neut % (Auto) (units ( unknown) date) 65.8 (50-75) % unknown) (unknown) (no (unknown) (unknown) No Action (units (unkn own) date) unknown) (unknown) (no (unknown) (unknown) No Known Home (units ( unknown) date) Medications unknown) 03/27/18 10/31/19 (unknown) (no (unknown) (unknown) Normal sinus (units (u nknown) date) rhythm rate 85 NE unknown) interval 130 QRS [address] changes or T- (unknown) (no (unknown) (unknown) Ordered: (units (unkno wn) date) unknown) (unknown) (no (unknown) (unknown) Orders (units (unkno wn) date) unknown) (unknown) (no (unknown) (unknown) Oxygen Delivery (units (unknown) date) Method 05/24/22 unknown) 09:41 (unknown) (no (unknown) (unknown) Oxygen Delivery (units (unknown) date) Method Room Air unknown) (unknown) (no (unknown) (unknown) PSYCHIATRIC: No (units (unknown) date) concerning unknown) psychosocial issues. (unknown) (no (unknown) (unknown) PTSD (units (unkno wn) date) (post-traumatic unknown) stress disorder) (Unknown) (unknown) (no (unknown) (unknown) Patient History (units (unknown) date) unknown) (unknown) (no (unknown) (unknown) Patient is a (units (u nknown) date) 57-year-old female unknown) who does not go to doctors presenting with (unknown) (no (unknown) (unknown) Patient: (units (unkno wn) date) Yenni Robbins unknown) MR#: [id number] (unknown) (no (unknown) (unknown) Potassium (units (unkn own) date) (3.4-5.1) mmol/L unknown) (unknown) (no (unknown) (unknown) Potassium 3.6 (units ( unknown) date) (3.4-5.1) mmol/L unknown) (unknown) (no (unknown) (unknown) Prescriptions: (units (unknown) date) unknown) (unknown) (no (unknown) (unknown) Pulse Oximetry (units (unknown) date) 100 05/24/22 09:41 unknown) (unknown) (no (unknown) (unknown) Pulse Oximetry (units (unknown) date) 100 unknown) (unknown) (no (unknown) (unknown) Pulse Rate 87 (units ( unknown) date) 05/24/22 09:41 unknown) (unknown) (no (unknown) (unknown) Pulse Rate 87 (units ( unknown) date) unknown) (unknown) (no (unknown) (unknown) RDW (11.6-14.8) % (units (unknown) date) unknown) (unknown) (no (unknown) (unknown) RDW 13.6 (units (unkno wn) date) (11.6-14.8) % unknown) (unknown) (no (unknown) (unknown) RESPIRATORY: See (units (unknown) date) HPI unknown) (unknown) (no (unknown) (unknown) RESPIRATORY: (units (u nknown) date) Breath sounds unknown) equal bilaterally, no wheezes rales or rhonchi. (unknown) (no (unknown) (unknown) Referrals: (units (unk nown) date) unknown) (unknown) (no (unknown) (unknown) Related Data (units (u nknown) date) unknown) (unknown) (no (unknown) (unknown) Respiratory Rate (units (unknown) date) 18 05/24/22 09:41 unknown) (unknown) (no (unknown) (unknown) Respiratory Rate (units (unknown) date) 18 unknown) (unknown) (no (unknown) (unknown) Result diagrams: (units (unknown) date) unknown) (unknown) (no (unknown) (unknown) Review of Systems (units (unknown) date) unknown) (unknown) (no (unknown) (unknown) SKIN: No rash, no (units (unknown) date) erythema, no unknown) pruritus (unknown) (no (unknown) (unknown) SKIN: Warm, dry, (units (unknown) date) no laceration, no unknown) petechiae, no rashes or lesions. (unknown) (no (unknown) (unknown) Salivary gland (units (unknown) date) disorder unknown) (unknown) (no (unknown) (unknown) Shoulder pain, (units (unknown) date) left (-2015) unknown) (unknown) (no (unknown) (unknown) Signed By: (units (unk nown) date) unknown) (unknown) (no (unknown) (unknown) Since February she has (units (unknown) date) also lost unknown) significant amount of weight without trying. She (unknown) (no (unknown) (unknown) Smoking Status: (units (unknown) date) Former smoker unknown) (unknown) (no (unknown) (unknown) Smoking Status: (units (unknown) date) Former smoker unknown) (unknown) (no (unknown) (unknown) Social History (units (unknown) date) (Reviewed 05/24/22 unknown) @ 10:21 by Joceline Lara DO) (unknown) (no (unknown) (unknown) Sodium (137-145) (units (unknown) date) mmol/L unknown) (unknown) (no (unknown) (unknown) Sodium 137 (units (unk nown) date) (137-145) mmol/L unknown) (unknown) (no (unknown) (unknown) Source: patient (units (unknown) date) unknown) (unknown) (no (unknown) (unknown) Stated Complaint: (units (unknown) date) Chest pain unknown) (unknown) (no (unknown) (unknown) Substance Use (units ( unknown) date) Type: does not use unknown) (unknown) (no (unknown) (unknown) Surgical History (units (unknown) date) (Reviewed 05/24/22 unknown) @ 10:21 by Joceline Lara DO) (unknown) (no (unknown) (unknown) Temperature 98.9 (units (unknown) date) F 05/24/22 09:41 unknown) (unknown) (no (unknown) (unknown) Temperature 98.9 (units (unknown) date) F unknown) (unknown) (no (unknown) (unknown) Time Seen by (units (u nknown) date) Provider: 05/24/22 unknown) 09:58 (unknown) (no (unknown) (unknown) Total Bilirubin (units (unknown) date) (0.2-1.3) mg/dL unknown) (unknown) (no (unknown) (unknown) Total Bilirubin (units (unknown) date) 0.5 (0.2-1.3) unknown) mg/dL (unknown) (no (unknown) (unknown) Total Creatine (units (unknown) date) Kinase (30-135) unknown) U/L (unknown) (no (unknown) (unknown) Total Creatine (units (unknown) date) Kinase 57 (30-135) unknown) U/L (unknown) (no (unknown) (unknown) Total Protein (units ( unknown) date) (6.3-8.2) g/dL unknown) (unknown) (no (unknown) (unknown) Total Protein 7.6 (units (unknown) date) (6.3-8.2) g/dL unknown) (unknown) (no (unknown) (unknown) Troponin + CK (units ( unknown) date) Cardiac Panel Stat unknown) (unknown) (no (unknown) (unknown) Troponin I < (units (u nknown) date) 0.012 (0.01-0.034) unknown) ng/mL (unknown) (no (unknown) (unknown) Troponin I (units (unk nown) date) (0.01-0.034) ng/mL unknown) (unknown) (no (unknown) (unknown) Vital Signs (units (un known) date) unknown) (unknown) (no (unknown) (unknown) Vital signs: (units (u nknown) date) unknown) (unknown) (no (unknown) (unknown) XR chest 1V Stat (units (unknown) date) unknown) (unknown) (no (unknown) (unknown) [DIPHENHYDRAMINE] (units (unknown) date) unknown) (unknown) (no (unknown) (unknown) [Embedded Image (units (unknown) date) Not Available] unknown) (unknown) (no (unknown) (unknown) aspirin [ASPIRIN] (units (unknown) date) Allergy Unknown unknown) Verified 05/24/22 09:45 (unknown) (no (unknown) (unknown) beea venom (units (unk nown) date) Allergy Unknown unknown) Uncoded 05/24/22 09:45 (unknown) (no (unknown) (unknown) been ongoing since (units (unknown) date) February of 2022. She unknown) has had increasing shortness of breath with (unknown) (no (unknown) (unknown) bupropion (units (unkn own) date) [BUPROPION] unknown) Allergy Unknown Verified 05/24/22 09:45 (unknown) (no (unknown) (unknown) can no longer (units ( unknown) date) full flight of unknown) stairs. Which is very abnormal for her she in (unknown) (no (unknown) (unknown) codiene Allergy (units (unknown) date) Unknown Uncoded unknown) 05/24/22 09:45 (unknown) (no (unknown) (unknown) confusion (units (unkn own) date) unknown) (unknown) (no (unknown) (unknown) constipation, (units ( unknown) date) melena. unknown) (unknown) (no (unknown) (unknown) denies any blood (units (unknown) date) in her stool. unknown) (unknown) (no (unknown) (unknown) diphenhydramine (units (unknown) date) Allergy Unknown unknown) Verified 05/24/22 09:45 (unknown) (no (unknown) (unknown) doxepin [DOXEPIN] (units (unknown) date) Allergy Unknown unknown) Verified 05/24/22 09:45 (unknown) (no (unknown) (unknown) epinephrine (units (un known) date) [EPINEPHRINE] unknown) Allergy Unknown Verified 05/24/22 09:45 (unknown) (no (unknown) (unknown) exertion since (units (unknown) date) then as well. As unknown) gotten worse over last 3 days. She says she (unknown) (no (unknown) (unknown) guarding or (units (un known) date) rebound.s unknown) (unknown) (no (unknown) (unknown) intact (units (unkno wn) date) unknown) (unknown) (no (unknown) (unknown) membranes (units (unkn own) date) unknown) (unknown) (no (unknown) (unknown) minerals Allergy (units (unknown) date) Unknown Uncoded unknown) 05/24/22 09:45 (unknown) (no (unknown) (unknown) morphine (units (unkno wn) date) [MORPHINE] Allergy unknown) Unknown Verified 05/24/22 09:45 (unknown) (no (unknown) (unknown) olanzapine (units (unk nown) date) [OLANZAPINE] unknown) Allergy Unknown Verified 05/24/22 09:45 (unknown) (no (unknown) (unknown) pain (units (unkno wn) date) unknown) (unknown) (no (unknown) (unknown) shortness of (units (un known) date) breath and chest unknown) fluttering which she thinks is her lung. This has (unknown) (no (unknown) (unknown) wave inversion (units (unknown) date) unknown) (unknown) (no (unknown) (unknown) zinc [ZINC] (units (un known) date) Allergy Unknown unknown) Verified 05/24/22 09:45 Result panel 10 (unknown) (no (unknown) (unknown) (no value) (units (unk nown) date) unknown) (unknown) (no (unknown) (unknown) Radiologist's (units ( unknown) date) Impression: unknown) (unknown) (no (unknown) (unknown) Date of Service: (units (unknown) date) 05/24/22 unknown) (unknown) (no (unknown) (unknown) (no value) (units (unk nown) date) unknown) (unknown) (no (unknown) (unknown) 05/24/22 09:47 (units (unknown) date) unknown) (unknown) (no (unknown) (unknown) Allergies (units (unkn own) date) unknown) (unknown) (no (unknown) (unknown) ED Orders (units (unkn own) date) unknown) (unknown) (no (unknown) (unknown) Emergency Report (units (unknown) date) unknown) (unknown) (no (unknown) (unknown) Home Medications (units (unknown) date) unknown) (unknown) (no (unknown) (unknown) [facility] (units (unknown) date) [address] [place] [address] Street unknown) [place] [address] (unknown) (no (unknown) (unknown) Lab Results (units (un known) date) unknown) (unknown) (no (unknown) (unknown) Vital Signs - 8 (units (unknown) date) hr unknown) (unknown) (no (unknown) (unknown) [At your request (units (unknown) date) you're medications unknown) have been faxed to] (unknown) (no (unknown) (unknown) (no value) (units (unk nown) date) unknown) (unknown) (no (unknown) (unknown) 05/24/22 05/24/22 (units (unknown) date) 05/24/22 unknown) Range/Units (unknown) (no (unknown) (unknown) 05/24/22 (units (unkno wn) date) Range/Units unknown) (unknown) (no (unknown) (unknown) 09:47 (units (unkno wn) date) unknown) (unknown) (no (unknown) (unknown) 09:47 09:47 09:47 (units (unknown) date) unknown) (unknown) (no (unknown) (unknown) No Known Home (units ( unknown) date) Medications unknown) (unknown) (no (unknown) (unknown) 05/24/22 (units (unkno wn) date) unknown) (unknown) (no (unknown) (unknown) Heart (units (unkno wn) date) palpitations unknown) (unknown) (no (unknown) (unknown) Medication (units (unk nown) date) Instructions unknown) Recorded Confirmed (unknown) (no (unknown) (unknown) pain. (units (unkno wn) date) unknown) (unknown) (no (unknown) (unknown) symptoms (units (unkno wn) date) unknown) (unknown) (no (unknown) (unknown) *Continue to take (units (unknown) date) medications as unknown) directed (unknown) (no (unknown) (unknown) *Follow up with (units (unknown) date) your primary care unknown) provider in 2-3 days or call [phone] (unknown) (no (unknown) (unknown) *Return to ER if (units (unknown) date) you should have unknown) [such as] [or] any new, worsening or concerning (unknown) (no (unknown) (unknown) *What to do: (units (u nknown) date) unknown) (unknown) (no (unknown) (unknown) *You have been (units (unknown) date) diagnosed with [ ] unknown) (unknown) (no (unknown) (unknown) 05/24/22 09:40 (units (unknown) date) unknown) (unknown) (no (unknown) (unknown) 05/24/22 09:47 (units (unknown) date) unknown) (unknown) (no (unknown) (unknown) 09:41 (units (unkno wn) date) unknown) (unknown) (no (unknown) (unknown) 12 point review (units (unknown) date) of systems is unknown) negative except for those stated above and HPI (unknown) (no (unknown) (unknown) [id number] (units (unkno wn) date) unknown) (unknown) (no (unknown) (unknown) ? (units (unkno wn) date) unknown) (unknown) (no (unknown) (unknown) ABDOMEN: Soft, (units (unknown) date) nontender. unknown) Normoactive bowel sounds all 4 quadrants. No (unknown) (no (unknown) (unknown) ALT (<35) IU/L (units (unknown) date) unknown) (unknown) (no (unknown) (unknown) ALT 27 (<35) IU/L (units (unknown) date) unknown) (unknown) (no (unknown) (unknown) AST (14-36) IU/L (units (unknown) date) unknown) (unknown) (no (unknown) (unknown) AST 29 (14-36) (units (unknown) date) IU/L unknown) (unknown) (no (unknown) (unknown) Accession Number: (units (unknown) date) [id number] ?? unknown) (unknown) (no (unknown) (unknown) Acct:[id number] (units (unknown) date) unknown) (unknown) (no (unknown) (unknown) Activity (units (unkno wn) date) Restrictions/Addit unknown) ional Instructions: (unknown) (no (unknown) (unknown) Age/Sex: 57 / F (units (unknown) date) unknown) (unknown) (no (unknown) (unknown) Age/Sex: 57 / F (units (unknown) date) unknown) (unknown) (no (unknown) (unknown) Albumin (3.5-5.0) (units (unknown) date) g/dL unknown) (unknown) (no (unknown) (unknown) Albumin 5.0 (units (un known) date) (3.5-5.0) g/dL unknown) (unknown) (no (unknown) (unknown) Albumin/Globulin (units (unknown) date) Ratio (1.0-2.8) unknown) (unknown) (no (unknown) (unknown) Albumin/Globulin (units (unknown) date) Ratio 1.9 unknown) (1.0-2.8) (unknown) (no (unknown) (unknown) Alkaline (units (unkno wn) date) Phosphatase unknown) (38-126) U/L (unknown) (no (unknown) (unknown) Alkaline (units (unkno wn) date) Phosphatase 66 unknown) (38-126) U/L (unknown) (no (unknown) (unknown) Allergy/AdvReac (units (unknown) date) Type Severity unknown) Reaction Status Date / Time (unknown) (no (unknown) (unknown) Anxiety (Unknown) (units (unknown) date) unknown) (unknown) (no (unknown) (unknown) Arthritis (units (unkn own) date) (Unknown) unknown) (unknown) (no (unknown) (unknown) BNP [NT-proBNP (units (unknown) date) (BNP-Adult 18+)] unknown) Stat (unknown) (no (unknown) (unknown) BUN (7-17) mg/dL (units (unknown) date) unknown) (unknown) (no (unknown) (unknown) BUN 13 (7-17) (units ( unknown) date) mg/dL unknown) (unknown) (no (unknown) (unknown) BUN/Creatinine (units (unknown) date) Ratio (6-22) unknown) (unknown) (no (unknown) (unknown) BUN/Creatinine (units (unknown) date) Ratio 17.6 (6-22) unknown) (unknown) (no (unknown) (unknown) Baso # (Auto) (units ( unknown) date) (0-100) /uL unknown) (unknown) (no (unknown) (unknown) Baso # (Auto) 0 (units (unknown) date) (0-100) /uL unknown) (unknown) (no (unknown) (unknown) Baso % (Auto) (units ( unknown) date) (0-2) % unknown) (unknown) (no (unknown) (unknown) Baso % (Auto) 0.5 (units (unknown) date) (0-2) % unknown) (unknown) (no (unknown) (unknown) Blood Pressure (units (unknown) date) 132/83 05/24/22 unknown) 09:41 (unknown) (no (unknown) (unknown) Blood Pressure (units (unknown) date) 132/83 unknown) (unknown) (no (unknown) (unknown) Bones and chest (units (unknown) date) wall:? No unknown) suspicious bony lesions.? Overlying soft tissues (unknown) (no (unknown) (unknown) CARDIOVASCULAR: (units (unknown) date) Denies chest pain, unknown) palpitations, orthopnea, edema (unknown) (no (unknown) (unknown) CARDIOVASCULAR: (units (unknown) date) Regular rate and unknown) rhythm without murmurs, rubs or gallops. (unknown) (no (unknown) (unknown) CK-MB (CK-2) (units (u nknown) date) unknown) (unknown) (no (unknown) (unknown) CK-MB (CK-2) TNP (units (unknown) date) unknown) (unknown) (no (unknown) (unknown) CK-MB (CK-2) Rel (units (unknown) date) Index unknown) (unknown) (no (unknown) (unknown) CK-MB (CK-2) Rel (units (unknown) date) Index TNP unknown) (unknown) (no (unknown) (unknown) COMPARISON:? (units (u nknown) date) [facility], unknown) CR, XR CHEST 1V, 10/25/2019, 17:37. (unknown) (no (unknown) (unknown) Calcium (units (unkno wn) date) (8.4-10.2) mg/dL unknown) (unknown) (no (unknown) (unknown) Calcium 9.2 (units (un known) date) (8.4-10.2) mg/dL unknown) (unknown) (no (unknown) (unknown) Carbon Dioxide (units (unknown) date) (22-32) mmol/L unknown) (unknown) (no (unknown) (unknown) Carbon Dioxide 29 (units (unknown) date) (22-32) mmol/L unknown) (unknown) (no (unknown) (unknown) Chest x-ray: (units (u nknown) date) unknown) (unknown) (no (unknown) (unknown) Chief Complaint: (units (unknown) date) Chest Pain unknown) (unknown) (no (unknown) (unknown) Chloride (98-107) (units (unknown) date) mmol/L unknown) (unknown) (no (unknown) (unknown) Chloride 99 (units (un known) date) (98-107) mmol/L unknown) (unknown) (no (unknown) (unknown) Clinical (units (o wn) date) Impression: unknown) (unknown) (no (unknown) (unknown) Complete Blood (units (unknown) date) Count AUTO DIFF unknown) Stat (unknown) (no (unknown) (unknown) Comprehensive (units ( unknown) date) Metabolic Panel unknown) Stat (unknown) (no (unknown) (unknown) Course (units (unkno wn) date) unknown) (unknown) (no (unknown) (unknown) Creatinine (units (unk nown) date) (0.52-1.04) mg/dL unknown) (unknown) (no (unknown) (unknown) Creatinine 0.74 (units (unknown) date) (0.52-1.04) mg/dL unknown) (unknown) (no (unknown) (unknown) D Dimer Stat (units (u nknown) date) unknown) (unknown) (no (unknown) (unknown) D-Dimer 210 (units (un known) date) (<230) ng/mL unknown) (unknown) (no (unknown) (unknown) D-Dimer (<230) (units (unknown) date) ng/mL unknown) (unknown) (no (unknown) (unknown) : 1965 (units (unknown) date) Acct:[id number] unknown) (unknown) (no (unknown) (unknown) : 1965 (units (unknown) date) unknown) (unknown) (no (unknown) (unknown) Date of Service: (units (unknown) date) 05/24/22 unknown) (unknown) (no (unknown) (unknown) Degenerative disc (units (unknown) date) disease (Unknown) unknown) (unknown) (no (unknown) (unknown) Departure (units (unkn own) date) unknown) (unknown) (no (unknown) (unknown) Dictated by: Usama (units (unknown) date) Mitchell Elizalde on unknown) 05/24/2022 at 9:06 ? ? (unknown) (no (unknown) (unknown) Discharge Plan (units (unknown) date) unknown) (unknown) (no (unknown) (unknown) ECG Data (units (unkno wn) date) unknown) (unknown) (no (unknown) (unknown) EKG-12 Lead Stat (units (unknown) date) unknown) (unknown) (no (unknown) (unknown) ER Physician: (units ( unknown) date) Joceline Lara unknown) D.O. (unknown) (no (unknown) (unknown) EXTREMITIES: (units (u nknown) date) Normal range of unknown) motion, no clubbing or edema. Neurovascularly (unknown) (no (unknown) (unknown) Eos # (Auto) (units (u nknown) date) (0-450) /uL unknown) (unknown) (no (unknown) (unknown) Eos # (Auto) 100 (units (unknown) date) (0-450) /uL unknown) (unknown) (no (unknown) (unknown) Eos % (Auto) (units (u nknown) date) (2-4) % unknown) (unknown) (no (unknown) (unknown) Eos % (Auto) 0.8 (units (unknown) date) L (2-4) % unknown) (unknown) (no (unknown) (unknown) Estimated GFR > (units (unknown) date) 60 (>60) mL/min unknown) (unknown) (no (unknown) (unknown) Estimated GFR (units ( unknown) date) (>60) mL/min unknown) (unknown) (no (unknown) (unknown) Exam (units (unkno wn) date) unknown) (unknown) (no (unknown) (unknown) FINDINGS:? (units (unk nown) date) unknown) (unknown) (no (unknown) (unknown) Family History (units (unknown) date) (Reviewed 05/24/22 unknown) @ 10:21 by Joceline Lara DO) (unknown) (no (unknown) (unknown) GASTROINTESTINAL: (units (unknown) date) Denies nausea, unknown) vomiting, abdominal pain, diarrhea, (unknown) (no (unknown) (unknown) GENERAL: Pleasant (units (unknown) date) alert 57-year-old unknown) female (unknown) (no (unknown) (unknown) GENERAL: Denies (units (unknown) date) chills, fatigue, unknown) malaise, fever, sweats, travel (unknown) (no (unknown) (unknown) : Denies (units (unkn own) date) dysuria, unknown) frequency, incontinence, hematuria, urinary retention, flank (unknown) (no (unknown) (unknown) General (units (unkno wn) date) unknown) (unknown) (no (unknown) (unknown) GenericComposite[ (units (unknown) date) Plt Count unknown) (150-400) X10^3/uL ] (unknown) (no (unknown) (unknown) GenericComposite[ (units (unknown) date) Plt Count 289 unknown) (150-400) X10^3/uL ] (unknown) (no (unknown) (unknown) GenericComposite[ (units (unknown) date) RBC (4.0-5.2) unknown) X10^6/uL ] (unknown) (no (unknown) (unknown) GenericComposite[ (units (unknown) date) RBC 5.22 H unknown) (4.0-5.2) X10^6/uL ] (unknown) (no (unknown) (unknown) GenericComposite[ (units (unknown) date) WBC (4.5-11.0) unknown) X10^3/uL ] (unknown) (no (unknown) (unknown) GenericComposite[ (units (unknown) date) WBC 8.4 (4.5-11.0) unknown) X10^3/uL ] (unknown) (no (unknown) (unknown) Globulin (units (unkno wn) date) (1.7-4.1) g/dL unknown) (unknown) (no (unknown) (unknown) Globulin 2.6 (units (u nknown) date) (1.7-4.1) g/dL unknown) (unknown) (no (unknown) (unknown) Glucose (70-100) (units (unknown) date) mg/dL unknown) (unknown) (no (unknown) (unknown) Glucose 137 H (units ( unknown) date) (70-100) mg/dL unknown) (unknown) (no (unknown) (unknown) H/O tubal (units (unkn own) date) ligation (1986) unknown) (unknown) (no (unknown) (unknown) HEENT: Denies (units ( unknown) date) sinus pain, ear unknown) pain, sore throat, difficulty swallowing, neck (unknown) (no (unknown) (unknown) HEENT: Head (units (un known) date) atraumatic,EOMI, unknown) pupils reactive, face symmetric, moist mucous (unknown) (no (unknown) (unknown) HPI - Chest Pain (units (unknown) date) unknown) (unknown) (no (unknown) (unknown) HPI narrative: (units (unknown) date) unknown) (unknown) (no (unknown) (unknown) Hct (36-46) % (units ( unknown) date) unknown) (unknown) (no (unknown) (unknown) Hct 43.2 (36-46) (units (unknown) date) % unknown) (unknown) (no (unknown) (unknown) Hgb (12.0-16.0) (units (unknown) date) g/dL unknown) (unknown) (no (unknown) (unknown) Hgb 15.0 (units (unkno wn) date) (12.0-16.0) g/dL unknown) (unknown) (no (unknown) (unknown) History of (units (unk nown) date) Present Illness unknown) (unknown) (no (unknown) (unknown) IMPRESSION:? No (units (unknown) date) acute unknown) cardiopulmonary pathology.? Stable appearing left hilar (unknown) (no (unknown) (unknown) INDICATIONS:? (units ( unknown) date) chest pain unknown) (unknown) (no (unknown) (unknown) Imaging Data (units (u nknown) date) unknown) (unknown) (no (unknown) (unknown) Initial Vital (units ( unknown) date) Signs unknown) (unknown) (no (unknown) (unknown) Initial Vital (units ( unknown) date) Signs: unknown) (unknown) (no (unknown) (unknown) Instructions: DI (units (unknown) date) for Shortness of unknown) Breath (unknown) (no (unknown) (unknown) Interpretation: (units (unknown) date) unknown) (unknown) (no (unknown) (unknown) October she was (units (unknown) date) very active able unknown) to do 51 pushups at a time she was training. (unknown) (no (unknown) (unknown) Lab Data (units (unkno wn) date) unknown) (unknown) (no (unknown) (unknown) Labs: (units (unkno wn) date) unknown) (unknown) (no (unknown) (unknown) Lipase (23-300) (units (unknown) date) U/L unknown) (unknown) (no (unknown) (unknown) Lipase 107 (units (unk nown) date) (23-300) U/L unknown) (unknown) (no (unknown) (unknown) Lipase Stat (units (un known) date) unknown) (unknown) (no (unknown) (unknown) Loc: ED (units (unkno wn) date) unknown) (unknown) (no (unknown) (unknown) Lungs and (units (unkn own) date) pleura:? Lungs are unknown) clear.? No pleural effusions or pneumothorax.? (unknown) (no (unknown) (unknown) Lymph # (Auto) (units (unknown) date) (1023-0753) /uL unknown) (unknown) (no (unknown) (unknown) Lymph # (Auto) (units (unknown) date) 2300 ([id number]) unknown) /uL (unknown) (no (unknown) (unknown) Lymph % (Auto) (units (unknown) date) (25-40) % unknown) (unknown) (no (unknown) (unknown) Lymph % (Auto) (units (unknown) date) 27.0 (25-40) % unknown) (unknown) (no (unknown) (unknown) MCH (26-34) PG (units (unknown) date) unknown) (unknown) (no (unknown) (unknown) MCH 28.7 (26-34) (units (unknown) date) PG unknown) (unknown) (no (unknown) (unknown) MCHC (30-36) % (units (unknown) date) unknown) (unknown) (no (unknown) (unknown) MCHC 34.7 (30-36) (units (unknown) date) % unknown) (unknown) (no (unknown) (unknown) MCV (80-100) fL (units (unknown) date) unknown) (unknown) (no (unknown) (unknown) MCV 82.7 (80-100) (units (unknown) date) fL unknown) (unknown) (no (unknown) (unknown) MDM - Chest Pain (units (unknown) date) unknown) (unknown) (no (unknown) (unknown) MDM Narrative (units ( unknown) date) unknown) (unknown) (no (unknown) (unknown) MR#: [id number] (units (unknown) date) unknown) (unknown) (no (unknown) (unknown) MUSCULOSKELETAL: (units (unknown) date) Denies weakness, unknown) joint pain, or bony pain (unknown) (no (unknown) (unknown) Magnesium (units (unkn own) date) (1.6-2.3) mg/dL unknown) (unknown) (no (unknown) (unknown) Magnesium 2.1 (units ( unknown) date) (1.6-2.3) mg/dL unknown) (unknown) (no (unknown) (unknown) Magnesium Stat (units (unknown) date) unknown) (unknown) (no (unknown) (unknown) Mediastinum:? (units ( unknown) date) Previously unknown) described left hilar fullness is again seen not (unknown) (no (unknown) (unknown) Medical History (units (unknown) date) (Updated 05/24/22 unknown) @ 11:23 by Joceline Lara DO) (unknown) (no (unknown) (unknown) Medical decision (units (unknown) date) making narrative: unknown) (unknown) (no (unknown) (unknown) Mehran Asencio, (units (unknown) date) MD [Primary Care unknown) Provider] - (unknown) (no (unknown) (unknown) Mode of arrival: (units (unknown) date) Ambulatory unknown) (unknown) (no (unknown) (unknown) [place] # (Auto) (units ( unknown) date) (0-900) /uL unknown) (unknown) (no (unknown) (unknown) [place] # (Auto) 500 (units (unknown) date) (0-900) /uL unknown) (unknown) (no (unknown) (unknown) Kings % (Auto) (units ( unknown) date) (3-14) % unknown) (unknown) (no (unknown) (unknown) Kings % (Auto) 5.9 (units (unknown) date) (3-14) % unknown) (unknown) (no (unknown) (unknown) Mother (units (unknown) date) No problems noted. unknown) (unknown) (no (unknown) (unknown) NEUROLOGIC: (units (un known) date) Denies weakness, unknown) dizziness, headache, numbness, change in speech, (unknown) (no (unknown) (unknown) NEUROLOGICAL: (units ( unknown) date) Alert and oriented unknown) x4.Normal gait and speech. (unknown) (no (unknown) (unknown) NT-Pro-B (units (unkno wn) date) Natriuret Pep unknown) (<125) pg/mL (unknown) (no (unknown) (unknown) NT-Pro-B (units (unkno wn) date) Natriuret Pep 39 unknown) (<125) pg/mL (unknown) (no (unknown) (unknown) Narrative: (units (unk nown) date) unknown) (unknown) (no (unknown) (unknown) Neut # (Auto) (units ( unknown) date) (8282-4810) /uL unknown) (unknown) (no (unknown) (unknown) Neut # (Auto) (units ( unknown) date) 5500 (7063-7310) unknown) /uL (unknown) (no (unknown) (unknown) Neut % (Auto) (units ( unknown) date) (50-75) % unknown) (unknown) (no (unknown) (unknown) Neut % (Auto) (units ( unknown) date) 65.8 (50-75) % unknown) (unknown) (no (unknown) (unknown) No Action (units (unkn own) date) unknown) (unknown) (no (unknown) (unknown) No Known Home (units ( unknown) date) Medications unknown) 03/27/18 10/31/19 (unknown) (no (unknown) (unknown) Normal sinus (units (u nknown) date) rhythm rate 85 NE unknown) interval 130 QRS [address] changes or T- (unknown) (no (unknown) (unknown) Ordered: (units (unkno wn) date) unknown) (unknown) (no (unknown) (unknown) Ordering (units (unkno wn) date) Provider: unknown) Joceline Lara D.O. (unknown) (no (unknown) (unknown) Orders (units (unkno wn) date) unknown) (unknown) (no (unknown) (unknown) Oxygen Delivery (units (unknown) date) Method 05/24/22 unknown) 09:41 (unknown) (no (unknown) (unknown) Oxygen Delivery (units (unknown) date) Method Room Air unknown) (unknown) (no (unknown) (unknown) PROCEDURE:? XR (units (unknown) date) CHEST 1V unknown) (unknown) (no (unknown) (unknown) PSYCHIATRIC: No (units (unknown) date) concerning unknown) psychosocial issues. (unknown) (no (unknown) (unknown) PTSD (units (unkno wn) date) (post-traumatic unknown) stress disorder) (Unknown) (unknown) (no (unknown) (unknown) Patient (units (unkno wn) date) Disposition: Home unknown) (unknown) (no (unknown) (unknown) Patient History (units (unknown) date) unknown) (unknown) (no (unknown) (unknown) Patient is a (units (u nknown) date) 57-year-old female unknown) who does not go to doctors presenting with (unknown) (no (unknown) (unknown) Patient is (units (unk nown) date) complaining of unknown) shortness of breath weight loss generalized weakness (unknown) (no (unknown) (unknown) Patient: (units (unkno wn) date) Yenni Robbins F unknown) MR#: [id number] (unknown) (no (unknown) (unknown) Potassium (units (unkn own) date) (3.4-5.1) mmol/L unknown) (unknown) (no (unknown) (unknown) Potassium 3.6 (units ( unknown) date) (3.4-5.1) mmol/L unknown) (unknown) (no (unknown) (unknown) Prescriptions: (units (unknown) date) unknown) (unknown) (no (unknown) (unknown) Procedure: XR (units ( unknown) date) chest 1V unknown) (unknown) (no (unknown) (unknown) Pulse Oximetry (units (unknown) date) 100 05/24/22 09:41 unknown) (unknown) (no (unknown) (unknown) Pulse Oximetry (units (unknown) date) 100 unknown) (unknown) (no (unknown) (unknown) Pulse Rate 87 (units ( unknown) date) 05/24/22 09:41 unknown) (unknown) (no (unknown) (unknown) Pulse Rate 87 (units ( unknown) date) unknown) (unknown) (no (unknown) (unknown) RDW (11.6-14.8) % (units (unknown) date) unknown) (unknown) (no (unknown) (unknown) RDW 13.6 (units (unkno wn) date) (11.6-14.8) % unknown) (unknown) (no (unknown) (unknown) RESPIRATORY: See (units (unknown) date) HPI unknown) (unknown) (no (unknown) (unknown) RESPIRATORY: (units (u nknown) date) Breath sounds unknown) equal bilaterally, no wheezes rales or rhonchi. (unknown) (no (unknown) (unknown) Referrals: (units (unk nown) date) unknown) (unknown) (no (unknown) (unknown) Related Data (units (u nknown) date) unknown) (unknown) (no (unknown) (unknown) Respiratory Rate (units (unknown) date) 18 05/24/22 09:41 unknown) (unknown) (no (unknown) (unknown) Respiratory Rate (units (unknown) date) 18 unknown) (unknown) (no (unknown) (unknown) Result diagrams: (units (unknown) date) unknown) (unknown) (no (unknown) (unknown) Review of Systems (units (unknown) date) unknown) (unknown) (no (unknown) (unknown) SKIN: No rash, no (units (unknown) date) erythema, no unknown) pruritus (unknown) (no (unknown) (unknown) SKIN: Warm, dry, (units (unknown) date) no laceration, no unknown) petechiae, no rashes or lesions. (unknown) (no (unknown) (unknown) Salivary gland (units (unknown) date) disorder unknown) (unknown) (no (unknown) (unknown) Shoulder pain, (units (unknown) date) left (-2015) unknown) (unknown) (no (unknown) (unknown) Signed By: (units (unk nown) date) unknown) (unknown) (no (unknown) (unknown) Since February she has (units (unknown) date) also lost unknown) significant amount of weight without trying. She (unknown) (no (unknown) (unknown) Smoking Status: (units (unknown) date) Former smoker unknown) (unknown) (no (unknown) (unknown) Smoking Status: (units (unknown) date) Former smoker unknown) (unknown) (no (unknown) (unknown) Social History (units (unknown) date) (Reviewed 05/24/22 unknown) @ 10:21 by Joceline Lara DO) (unknown) (no (unknown) (unknown) Sodium (137-145) (units (unknown) date) mmol/L unknown) (unknown) (no (unknown) (unknown) Sodium 137 (units (unk nown) date) (137-145) mmol/L unknown) (unknown) (no (unknown) (unknown) Source: patient (units (unknown) date) unknown) (unknown) (no (unknown) (unknown) Stated Complaint: (units (unknown) date) Chest pain unknown) (unknown) (no (unknown) (unknown) Substance Use (units ( unknown) date) Type: does not use unknown) (unknown) (no (unknown) (unknown) Surgical History (units (unknown) date) (Reviewed 05/24/22 unknown) @ 10:21 by Joceline Lara DO) (unknown) (no (unknown) (unknown) Surgical changes (units (unknown) date) and devices:? unknown) None.? (unknown) (no (unknown) (unknown) TECHNIQUE:? One (units (unknown) date) view of the chest unknown) was acquired.? (unknown) (no (unknown) (unknown) Temperature 98.9 (units (unknown) date) F 05/24/22 09:41 unknown) (unknown) (no (unknown) (unknown) Temperature 98.9 (units (unknown) date) F unknown) (unknown) (no (unknown) (unknown) This can be (units (un known) date) further evaluated unknown) with CT of chest as an outpatient if clinically (unknown) (no (unknown) (unknown) Time Seen by (units (u nknown) date) Provider: 05/24/22 unknown) 09:58 (unknown) (no (unknown) (unknown) Total Bilirubin (units (unknown) date) (0.2-1.3) mg/dL unknown) (unknown) (no (unknown) (unknown) Total Bilirubin (units (unknown) date) 0.5 (0.2-1.3) unknown) mg/dL (unknown) (no (unknown) (unknown) Total Creatine (units (unknown) date) Kinase (30-135) unknown) U/L (unknown) (no (unknown) (unknown) Total Creatine (units (unknown) date) Kinase 57 (30-135) unknown) U/L (unknown) (no (unknown) (unknown) Total Protein (units ( unknown) date) (6.3-8.2) g/dL unknown) (unknown) (no (unknown) (unknown) Total Protein 7.6 (units (unknown) date) (6.3-8.2) g/dL unknown) (unknown) (no (unknown) (unknown) Troponin + CK (units ( unknown) date) Cardiac Panel Stat unknown) (unknown) (no (unknown) (unknown) Troponin I < (units (u nknown) date) 0.012 (0.01-0.034) unknown) ng/mL (unknown) (no (unknown) (unknown) Troponin I (units (unk nown) date) (0.01-0.034) ng/mL unknown) (unknown) (no (unknown) (unknown) Vital Signs (units (un known) date) unknown) (unknown) (no (unknown) (unknown) Vital signs: (units (u nknown) date) unknown) (unknown) (no (unknown) (unknown) XR chest 1V Stat (units (unknown) date) unknown) (unknown) (no (unknown) (unknown) [DIPHENHYDRAMINE] (units (unknown) date) unknown) (unknown) (no (unknown) (unknown) [Embedded Image (units (unknown) date) Not Available] unknown) (unknown) (no (unknown) (unknown) [and follow up (units (unknown) date) with ortho, unknown) urology etc] (unknown) (no (unknown) (unknown) appear (units (unkno wn) date) unknown) (unknown) (no (unknown) (unknown) aspirin [ASPIRIN] (units (unknown) date) Allergy Unknown unknown) Verified 05/24/22 09:45 (unknown) (no (unknown) (unknown) beea venom (units (unk nown) date) Allergy Unknown unknown) Uncoded 05/24/22 09:45 (unknown) (no (unknown) (unknown) been ongoing since (units (unknown) date) February of 2022. She unknown) has had increasing shortness of breath with (unknown) (no (unknown) (unknown) bupropion (units (unkn own) date) [BUPROPION] unknown) Allergy Unknown Verified 05/24/22 09:45 (unknown) (no (unknown) (unknown) can no longer (units ( unknown) date) full flight of unknown) stairs. Which is very abnormal for her she in (unknown) (no (unknown) (unknown) changed in (units (unk nown) date) appearance from unknown) prior study.? Heart size is normal.? (unknown) (no (unknown) (unknown) codiene Allergy (units (unknown) date) Unknown Uncoded unknown) 05/24/22 09:45 (unknown) (no (unknown) (unknown) confusion (units (unkn own) date) unknown) (unknown) (no (unknown) (unknown) constipation, (units ( unknown) date) melena. unknown) (unknown) (no (unknown) (unknown) denies any blood (units (unknown) date) in her stool. unknown) (unknown) (no (unknown) (unknown) dimer. At this (units (unknown) date) time I have no unknown) explanation for her lung fluttering or heart (unknown) (no (unknown) (unknown) diphenhydramine (units (unknown) date) Allergy Unknown unknown) Verified 05/24/22 09:45 (unknown) (no (unknown) (unknown) doxepin [DOXEPIN] (units (unknown) date) Allergy Unknown unknown) Verified 05/24/22 09:45 (unknown) (no (unknown) (unknown) epinephrine (units (un known) date) [EPINEPHRINE] unknown) Allergy Unknown Verified 05/24/22 09:45 (unknown) (no (unknown) (unknown) exertion since (units (unknown) date) then as well. As unknown) gotten worse over last 3 days. She says she (unknown) (no (unknown) (unknown) fluttering. She (units (unknown) date) is not anemic. At unknown) this time recommend outpatient follow-up. (unknown) (no (unknown) (unknown) fullness.? (units (unk nown) date) unknown) (unknown) (no (unknown) (unknown) guarding or (units (un known) date) rebound.s unknown) (unknown) (no (unknown) (unknown) ient: (units (unkno wn) date) Ross,Yenni F unknown) (unknown) (no (unknown) (unknown) indicated. (units (unk nown) date) unknown) (unknown) (no (unknown) (unknown) intact (units (unkno wn) date) unknown) (unknown) (no (unknown) (unknown) membranes (units (unkn own) date) unknown) (unknown) (no (unknown) (unknown) minerals Allergy (units (unknown) date) Unknown Uncoded unknown) 05/24/22 09:45 (unknown) (no (unknown) (unknown) morphine (units (unkno wn) date) [MORPHINE] Allergy unknown) Unknown Verified 05/24/22 09:45 (unknown) (no (unknown) (unknown) olanzapine (units (unk nown) date) [OLANZAPINE] unknown) Allergy Unknown Verified 05/24/22 09:45 (unknown) (no (unknown) (unknown) pain (units (unkno wn) date) unknown) (unknown) (no (unknown) (unknown) patient blood (units ( unknown) date) work today is unknown) overall reassuring negative troponin negative D- (unknown) (no (unknown) (unknown) shortness of (units (un known) date) breath and chest unknown) fluttering which she thinks is her lung. This has (unknown) (no (unknown) (unknown) significantly (units ( unknown) date) unknown) (unknown) (no (unknown) (unknown) unremarkable.? (units (unknown) date) unknown) (unknown) (no (unknown) (unknown) wave inversion (units (unknown) date) unknown) (unknown) (no (unknown) (unknown) zinc [ZINC] (units (un known) date) Allergy Unknown unknown) Verified 05/24/22 09:45 Result panel 11 (unknown) (no (unknown) (unknown) (no value) (units (unk nown) date) unknown) (unknown) (no (unknown) (unknown) Radiologist's (units ( unknown) date) Impression: unknown) (unknown) (no (unknown) (unknown) Date of Service: (units (unknown) date) 05/24/22 unknown) (unknown) (no (unknown) (unknown) (no value) (units (unk nown) date) unknown) (unknown) (no (unknown) (unknown) 05/24/22 09:47 (units (unknown) date) unknown) (unknown) (no (unknown) (unknown) Allergies (units (unkn own) date) unknown) (unknown) (no (unknown) (unknown) ED Orders (units (unkn own) date) unknown) (unknown) (no (unknown) (unknown) Emergency Report (units (unknown) date) unknown) (unknown) (no (unknown) (unknown) Home Medications (units (unknown) date) unknown) (unknown) (no (unknown) (unknown) [facility] (units (unknown) date) [address] unknown) [place] [address] (unknown) (no (unknown) (unknown) Lab Results (units (un known) date) unknown) (unknown) (no (unknown) (unknown) Vital Signs - 8 (units (unknown) date) hr unknown) (unknown) (no (unknown) (unknown) (no value) (units (unk nown) date) unknown) (unknown) (no (unknown) (unknown) 05/24/22 05/24/22 (units (unknown) date) 05/24/22 unknown) Range/Units (unknown) (no (unknown) (unknown) 05/24/22 (units (unkno wn) date) Range/Units unknown) (unknown) (no (unknown) (unknown) 09:47 (units (unkno wn) date) unknown) (unknown) (no (unknown) (unknown) 09:47 09:47 09:47 (units (unknown) date) unknown) (unknown) (no (unknown) (unknown) No Known Home (units ( unknown) date) Medications unknown) (unknown) (no (unknown) (unknown) Today workup with (units (unknown) date) the emergency unknown) department was overall reassuring. Please (unknown) (no (unknown) (unknown) 05/24/22 (units (unkno wn) date) unknown) (unknown) (no (unknown) (unknown) Heart (units (unkno wn) date) palpitations unknown) (unknown) (no (unknown) (unknown) Medication (units (unk nown) date) Instructions unknown) Recorded Confirmed (unknown) (no (unknown) (unknown) or any new, (units (un known) date) worsening or unknown) concerning symptoms (unknown) (no (unknown) (unknown) pain. (units (unkno wn) date) unknown) (unknown) (no (unknown) (unknown) *Continue to take (units (unknown) date) medications as unknown) directed (unknown) (no (unknown) (unknown) *Follow up with (units (unknown) date) your primary care unknown) provider in 2-3 days or call [phone] (unknown) (no (unknown) (unknown) *Return to ER if (units (unknown) date) you should have unknown) INCREASING FLUTTERING PAIN SHORTNESS OF BREATH (unknown) (no (unknown) (unknown) *What to do: I do (units (unknown) date) not have an unknown) explanation for the feeling you are experiencing. (unknown) (no (unknown) (unknown) *You have been (units (unknown) date) diagnosed with unknown) (unknown) (no (unknown) (unknown) 05/24/22 09:40 (units (unknown) date) unknown) (unknown) (no (unknown) (unknown) 05/24/22 09:47 (units (unknown) date) unknown) (unknown) (no (unknown) (unknown) 09:41 (units (unkno wn) date) unknown) (unknown) (no (unknown) (unknown) 12 point review (units (unknown) date) of systems is unknown) negative except for those stated above and HPI (unknown) (no (unknown) (unknown) [id number] (units (unkno wn) date) unknown) (unknown) (no (unknown) (unknown) 500 mg every 12 (units (unknown) date) hours NOT BOTH unknown) (unknown) (no (unknown) (unknown) ? (units (unkno wn) date) unknown) (unknown) (no (unknown) (unknown) ABDOMEN: Soft, (units (unknown) date) nontender. unknown) Normoactive bowel sounds all 4 quadrants. No (unknown) (no (unknown) (unknown) ALT (<35) IU/L (units (unknown) date) unknown) (unknown) (no (unknown) (unknown) ALT 27 (<35) IU/L (units (unknown) date) unknown) (unknown) (no (unknown) (unknown) AST (14-36) IU/L (units (unknown) date) unknown) (unknown) (no (unknown) (unknown) AST 29 (14-36) (units (unknown) date) IU/L unknown) (unknown) (no (unknown) (unknown) Accession Number: (units (unknown) date) [id number] ?? unknown) (unknown) (no (unknown) (unknown) Acct:[id number] (units (unknown) date) unknown) (unknown) (no (unknown) (unknown) Activity (units (unkno wn) date) Restrictions/Addit unknown) ional Instructions: (unknown) (no (unknown) (unknown) Age/Sex: 57 / F (units (unknown) date) unknown) (unknown) (no (unknown) (unknown) Age/Sex: 57 / F (units (unknown) date) unknown) (unknown) (no (unknown) (unknown) Albumin (3.5-5.0) (units (unknown) date) g/dL unknown) (unknown) (no (unknown) (unknown) Albumin 5.0 (units (un known) date) (3.5-5.0) g/dL unknown) (unknown) (no (unknown) (unknown) Albumin/Globulin (units (unknown) date) Ratio (1.0-2.8) unknown) (unknown) (no (unknown) (unknown) Albumin/Globulin (units (unknown) date) Ratio 1.9 unknown) (1.0-2.8) (unknown) (no (unknown) (unknown) Alkaline (units (unkno wn) date) Phosphatase unknown) (38-126) U/L (unknown) (no (unknown) (unknown) Alkaline (units (unkno wn) date) Phosphatase 66 unknown) (38-126) U/L (unknown) (no (unknown) (unknown) Allergy/AdvReac (units (unknown) date) Type Severity unknown) Reaction Status Date / Time (unknown) (no (unknown) (unknown) Anxiety (Unknown) (units (unknown) date) unknown) (unknown) (no (unknown) (unknown) Arthritis (units (unkn own) date) (Unknown) unknown) (unknown) (no (unknown) (unknown) BNP [NT-proBNP (units (unknown) date) (BNP-Adult 18+)] unknown) Stat (unknown) (no (unknown) (unknown) BUN (7-17) mg/dL (units (unknown) date) unknown) (unknown) (no (unknown) (unknown) BUN 13 (7-17) (units ( unknown) date) mg/dL unknown) (unknown) (no (unknown) (unknown) BUN/Creatinine (units (unknown) date) Ratio (6-22) unknown) (unknown) (no (unknown) (unknown) BUN/Creatinine (units (unknown) date) Ratio 17.6 (6-22) unknown) (unknown) (no (unknown) (unknown) Baso # (Auto) (units ( unknown) date) (0-100) /uL unknown) (unknown) (no (unknown) (unknown) Baso # (Auto) 0 (units (unknown) date) (0-100) /uL unknown) (unknown) (no (unknown) (unknown) Baso % (Auto) (units ( unknown) date) (0-2) % unknown) (unknown) (no (unknown) (unknown) Baso % (Auto) 0.5 (units (unknown) date) (0-2) % unknown) (unknown) (no (unknown) (unknown) Blood Pressure (units (unknown) date) 132/83 05/24/22 unknown) 09:41 (unknown) (no (unknown) (unknown) Blood Pressure (units (unknown) date) 132/83 unknown) (unknown) (no (unknown) (unknown) Bones and chest (units (unknown) date) wall:? No unknown) suspicious bony lesions.? Overlying soft tissues (unknown) (no (unknown) (unknown) CARDIOVASCULAR: (units (unknown) date) Denies chest pain, unknown) palpitations, orthopnea, edema (unknown) (no (unknown) (unknown) CARDIOVASCULAR: (units (unknown) date) Regular rate and unknown) rhythm without murmurs, rubs or gallops. (unknown) (no (unknown) (unknown) CK-MB (CK-2) (units (u nknown) date) unknown) (unknown) (no (unknown) (unknown) CK-MB (CK-2) TNP (units (unknown) date) unknown) (unknown) (no (unknown) (unknown) CK-MB (CK-2) Rel (units (unknown) date) Index unknown) (unknown) (no (unknown) (unknown) CK-MB (CK-2) Rel (units (unknown) date) Index TNP unknown) (unknown) (no (unknown) (unknown) COMPARISON:? (units (u nknown) date) [facility], unknown) CR, XR CHEST 1V, 10/25/2019, 17:37. (unknown) (no (unknown) (unknown) Calcium (units (unkno wn) date) (8.4-10.2) mg/dL unknown) (unknown) (no (unknown) (unknown) Calcium 9.2 (units (un known) date) (8.4-10.2) mg/dL unknown) (unknown) (no (unknown) (unknown) Carbon Dioxide (units (unknown) date) (22-32) mmol/L unknown) (unknown) (no (unknown) (unknown) Carbon Dioxide 29 (units (unknown) date) (22-32) mmol/L unknown) (unknown) (no (unknown) (unknown) Chest x-ray: (units (u nknon) date) unknown) (unknown) (no (unknown) (unknown) Chief Complaint: (units (unknown) date) Chest Pain unknown) (unknown) (no (unknown) (unknown) Chloride (98-107) (units (unknown) date) mmol/L unknown) (unknown) (no (unknown) (unknown) Chloride 99 (units (un known) date) (98-107) mmol/L unknown) (unknown) (no (unknown) (unknown) Clinical (units (o wn) date) Impression: unknown) (unknown) (no (unknown) (unknown) Complete Blood (units (unknown) date) Count AUTO DIFF unknown) Stat (unknown) (no (unknown) (unknown) Comprehensive (units ( unknown) date) Metabolic Panel unknown) Stat (unknown) (no (unknown) (unknown) Course (units (o wn) date) unknown) (unknown) (no (unknown) (unknown) Creatinine (units (k n) date) (0.52-1.04) mg/dL unknown) (unknown) (no (unknown) (unknown) Creatinine 0.74 (units (unknown) date) (0.52-1.04) mg/dL unknown) (unknown) (no (unknown) (unknown) D Dimer Stat (units (u nknown) date) unknown) (unknown) (no (unknown) (unknown) D-Dimer 210 (units (un known) date) (<230) ng/mL unknown) (unknown) (no (unknown) (unknown) D-Dimer (<230) (units (unknown) date) ng/mL unknown) (unknown) (no (unknown) (unknown) : 1965 (units (unknown) date) Acct:[id number] unknown) (unknown) (no (unknown) (unknown) : 1965 (units (unknown) date) unknown) (unknown) (no (unknown) (unknown) Date of Service: (units (unknown) date) 05/24/22 unknown) (unknown) (no (unknown) (unknown) Degenerative disc (units (unknown) date) disease (Unknown) unknown) (unknown) (no (unknown) (unknown) Departure (units (unkn own) date) unknown) (unknown) (no (unknown) (unknown) Dictated by: Usama (units (unknown) date) Mitchell Elizalde on unknown) 05/24/2022 at 9:06 ? ? (unknown) (no (unknown) (unknown) Discharge Plan (units (unknown) date) unknown) (unknown) (no (unknown) (unknown) ECG Data (units (unkno wn) date) unknown) (unknown) (no (unknown) (unknown) EKG-12 Lead Stat (units (unknown) date) unknown) (unknown) (no (unknown) (unknown) ER Physician: (units ( unknown) date) Joceline Lara unknown) D.O. (unknown) (no (unknown) (unknown) EXTREMITIES: (units (u nknown) date) Normal range of unknown) motion, no clubbing or edema. Neurovascularly (unknown) (no (unknown) (unknown) Eos # (Auto) (units (u nknown) date) (0-450) /uL unknown) (unknown) (no (unknown) (unknown) Eos # (Auto) 100 (units (unknown) date) (0-450) /uL unknown) (unknown) (no (unknown) (unknown) Eos % (Auto) (units (u nknown) date) (2-4) % unknown) (unknown) (no (unknown) (unknown) Eos % (Auto) 0.8 (units (unknown) date) L (2-4) % unknown) (unknown) (no (unknown) (unknown) Estimated GFR > (units (unknown) date) 60 (>60) mL/min unknown) (unknown) (no (unknown) (unknown) Estimated GFR (units ( unknown) date) (>60) mL/min unknown) (unknown) (no (unknown) (unknown) Exam (units (unkno wn) date) unknown) (unknown) (no (unknown) (unknown) FINDINGS:? (units (unk nown) date) unknown) (unknown) (no (unknown) (unknown) Family History (units (unknown) date) (Reviewed 05/24/22 unknown) @ 10:21 by Joceline Lara DO) (unknown) (no (unknown) (unknown) GASTROINTESTINAL: (units (unknown) date) Denies nausea, unknown) vomiting, abdominal pain, diarrhea, (unknown) (no (unknown) (unknown) GENERAL: Pleasant (units (unknown) date) alert 57-year-old unknown) female (unknown) (no (unknown) (unknown) GENERAL: Denies (units (unknown) date) chills, fatigue, unknown) malaise, fever, sweats, travel (unknown) (no (unknown) (unknown) : Denies (units (unkn own) date) dysuria, unknown) frequency, incontinence, hematuria, urinary retention, flank (unknown) (no (unknown) (unknown) General (units (unkno wn) date) unknown) (unknown) (no (unknown) (unknown) GenericComposite[ (units (unknown) date) Plt Count unknown) (150-400) X10^3/uL ] (unknown) (no (unknown) (unknown) GenericComposite[ (units (unknown) date) Plt Count 289 unknown) (150-400) X10^3/uL ] (unknown) (no (unknown) (unknown) GenericComposite[ (units (unknown) date) RBC (4.0-5.2) unknown) X10^6/uL ] (unknown) (no (unknown) (unknown) GenericComposite[ (units (unknown) date) RBC 5.22 H unknown) (4.0-5.2) X10^6/uL ] (unknown) (no (unknown) (unknown) GenericComposite[ (units (unknown) date) WBC (4.5-11.0) unknown) X10^3/uL ] (unknown) (no (unknown) (unknown) GenericComposite[ (units (unknown) date) WBC 8.4 (4.5-11.0) unknown) X10^3/uL ] (unknown) (no (unknown) (unknown) Globulin (units (unkno wn) date) (1.7-4.1) g/dL unknown) (unknown) (no (unknown) (unknown) Globulin 2.6 (units (u nknown) date) (1.7-4.1) g/dL unknown) (unknown) (no (unknown) (unknown) Glucose (70-100) (units (unknown) date) mg/dL unknown) (unknown) (no (unknown) (unknown) Glucose 137 H (units ( unknown) date) (70-100) mg/dL unknown) (unknown) (no (unknown) (unknown) H/O tubal (units (unkn own) date) ligation (1986) unknown) (unknown) (no (unknown) (unknown) HEENT: Denies (units ( unknown) date) sinus pain, ear unknown) pain, sore throat, difficulty swallowing, neck (unknown) (no (unknown) (unknown) HEENT: Head (units (un known) date) atraumatic,EOMI, unknown) pupils reactive, face symmetric, moist mucous (unknown) (no (unknown) (unknown) HPI - Chest Pain (units (unknown) date) unknown) (unknown) (no (unknown) (unknown) HPI narrative: (units (unknown) date) unknown) (unknown) (no (unknown) (unknown) Hct (36-46) % (units ( unknown) date) unknown) (unknown) (no (unknown) (unknown) Hct 43.2 (36-46) (units (unknown) date) % unknown) (unknown) (no (unknown) (unknown) Hgb (12.0-16.0) (units (unknown) date) g/dL unknown) (unknown) (no (unknown) (unknown) Hgb 15.0 (units (unkno wn) date) (12.0-16.0) g/dL unknown) (unknown) (no (unknown) (unknown) History of (units (unk nown) date) Present Illness unknown) (unknown) (no (unknown) (unknown) IMPRESSION:? No (units (unknown) date) acute unknown) cardiopulmonary pathology.? Stable appearing left hilar (unknown) (no (unknown) (unknown) INDICATIONS:? (units ( unknown) date) chest pain unknown) (unknown) (no (unknown) (unknown) Ibuprofen 600 mg (units (unknown) date) every 6 hours if unknown) needed for [id number]-[id number]-pryaqhtk pain OR naproxen (unknown) (no (unknown) (unknown) Imaging Data (units (u nknown) date) unknown) (unknown) (no (unknown) (unknown) Initial Vital (units ( unknown) date) Signs unknown) (unknown) (no (unknown) (unknown) Initial Vital (units ( unknown) date) Signs: unknown) (unknown) (no (unknown) (unknown) Instructions: DI (units (unknown) date) for Shortness of unknown) Breath (unknown) (no (unknown) (unknown) Interpretation: (units (unknown) date) unknown) (unknown) (no (unknown) (unknown) October she was (units (unknown) date) very active able unknown) to do 51 pushups at a time she was training. (unknown) (no (unknown) (unknown) Lab Data (units (unkno wn) date) unknown) (unknown) (no (unknown) (unknown) Labs: (units (unkno wn) date) unknown) (unknown) (no (unknown) (unknown) Lipase (23-300) (units (unknown) date) U/L unknown) (unknown) (no (unknown) (unknown) Lipase 107 (units (unk nown) date) (23-300) U/L unknown) (unknown) (no (unknown) (unknown) Lipase Stat (units (un known) date) unknown) (unknown) (no (unknown) (unknown) Loc: ED (units (unkno wn) date) unknown) (unknown) (no (unknown) (unknown) Lungs and (units (unkn own) date) pleura:? Lungs are unknown) clear.? No pleural effusions or pneumothorax.? (unknown) (no (unknown) (unknown) Lymph # (Auto) (units (unknown) date) (7316-3896) /uL unknown) (unknown) (no (unknown) (unknown) Lymph # (Auto) (units (unknown) date) 2300 (0005-7163) unknown) /uL (unknown) (no (unknown) (unknown) Lymph % (Auto) (units (unknown) date) (25-40) % unknown) (unknown) (no (unknown) (unknown) Lymph % (Auto) (units (unknown) date) 27.0 (25-40) % unknown) (unknown) (no (unknown) (unknown) MCH (26-34) PG (units (unknown) date) unknown) (unknown) (no (unknown) (unknown) MCH 28.7 (26-34) (units (unknown) date) PG unknown) (unknown) (no (unknown) (unknown) MCHC (30-36) % (units (unknown) date) unknown) (unknown) (no (unknown) (unknown) MCHC 34.7 (30-36) (units (unknown) date) % unknown) (unknown) (no (unknown) (unknown) MCV (80-100) fL (units (unknown) date) unknown) (unknown) (no (unknown) (unknown) MCV 82.7 (80-100) (units (unknown) date) fL unknown) (unknown) (no (unknown) (unknown) MDM - Chest Pain (units (unknown) date) unknown) (unknown) (no (unknown) (unknown) MDM Narrative (units ( unknown) date) unknown) (unknown) (no (unknown) (unknown) MR#: [id number] (units (unknown) date) unknown) (unknown) (no (unknown) (unknown) MUSCULOSKELETAL: (units (unknown) date) Denies weakness, unknown) joint pain, or bony pain (unknown) (no (unknown) (unknown) Magnesium (units (unkn own) date) (1.6-2.3) mg/dL unknown) (unknown) (no (unknown) (unknown) Magnesium 2.1 (units ( unknown) date) (1.6-2.3) mg/dL unknown) (unknown) (no (unknown) (unknown) Magnesium Stat (units (unknown) date) unknown) (unknown) (no (unknown) (unknown) Mediastinum:? (units ( unknown) date) Previously unknown) described left hilar fullness is again seen not (unknown) (no (unknown) (unknown) Medical History (units (unknown) date) (Updated 05/24/22 unknown) @ 11:23 by Joceline Lara DO) (unknown) (no (unknown) (unknown) Medical decision (units (unknown) date) making narrative: unknown) (unknown) (no (unknown) (unknown) Mehran Asencio, (units (unknown) date) MD [Primary Care unknown) Provider] - (unknown) (no (unknown) (unknown) Mode of arrival: (units (unknown) date) Ambulatory unknown) (unknown) (no (unknown) (unknown) Kings # (Auto) (units ( unknown) date) (0-900) /uL unknown) (unknown) (no (unknown) (unknown) Kings # (Auto) 500 (units (unknown) date) (0-900) /uL unknown) (unknown) (no (unknown) (unknown) Kings % (Auto) (units ( unknown) date) (3-14) % unknown) (unknown) (no (unknown) (unknown) Kings % (Auto) 5.9 (units (unknown) date) (3-14) % unknown) (unknown) (no (unknown) (unknown) Mother (units (unknown) date) No problems noted. unknown) (unknown) (no (unknown) (unknown) NEUROLOGIC: (units (un known) date) Denies weakness, unknown) dizziness, headache, numbness, change in speech, (unknown) (no (unknown) (unknown) NEUROLOGICAL: (units ( unknown) date) Alert and oriented unknown) x4.Normal gait and speech. (unknown) (no (unknown) (unknown) NT-Pro-B (units (unkno wn) date) Natriuret Pep unknown) (<125) pg/mL (unknown) (no (unknown) (unknown) NT-Pro-B (units (unkno wn) date) Natriuret Pep 39 unknown) (<125) pg/mL (unknown) (no (unknown) (unknown) Narrative: (units (unk nown) date) unknown) (unknown) (no (unknown) (unknown) Neut # (Auto) (units ( unknown) date) (5279-5098) /uL unknown) (unknown) (no (unknown) (unknown) Neut # (Auto) (units ( unknown) date) 5500 (1026-7053) unknown) /uL (unknown) (no (unknown) (unknown) Neut % (Auto) (units ( unknown) date) (50-75) % unknown) (unknown) (no (unknown) (unknown) Neut % (Auto) (units ( unknown) date) 65.8 (50-75) % unknown) (unknown) (no (unknown) (unknown) No Action (units (unkn own) date) unknown) (unknown) (no (unknown) (unknown) No Known Home (units ( unknown) date) Medications unknown) 03/27/18 10/31/19 (unknown) (no (unknown) (unknown) Normal sinus (units (u nknown) date) rhythm rate 85 NE unknown) interval 130 QRS [address] changes or T- (unknown) (no (unknown) (unknown) Ordered: (units (unkno wn) date) unknown) (unknown) (no (unknown) (unknown) Ordering (units (unkno wn) date) Provider: unknown) Joceline Lara D.O. (unknown) (no (unknown) (unknown) Orders (units (unkno wn) date) unknown) (unknown) (no (unknown) (unknown) Oxygen Delivery (units (unknown) date) Method 05/24/22 unknown) 09:41 (unknown) (no (unknown) (unknown) Oxygen Delivery (units (unknown) date) Method Room Air unknown) (unknown) (no (unknown) (unknown) PROCEDURE:? XR (units (unknown) date) CHEST 1V unknown) (unknown) (no (unknown) (unknown) PSYCHIATRIC: No (units (unknown) date) concerning unknown) psychosocial issues. (unknown) (no (unknown) (unknown) PTSD (units (unkno wn) date) (post-traumatic unknown) stress disorder) (Unknown) (unknown) (no (unknown) (unknown) Patient (units (unkno wn) date) Disposition: Home unknown) (unknown) (no (unknown) (unknown) Patient History (units (unknown) date) unknown) (unknown) (no (unknown) (unknown) Patient is a (units (u nknown) date) 57-year-old female unknown) who does not go to doctors presenting with (unknown) (no (unknown) (unknown) Patient is (units (unk nown) date) complaining of unknown) shortness of breath weight loss generalized weakness (unknown) (no (unknown) (unknown) Patient: (units (unkno wn) date) Yenni Robbins F unknown) MR#: [id number] (unknown) (no (unknown) (unknown) Potassium (units (unkn own) date) (3.4-5.1) mmol/L unknown) (unknown) (no (unknown) (unknown) Potassium 3.6 (units ( unknown) date) (3.4-5.1) mmol/L unknown) (unknown) (no (unknown) (unknown) Prescriptions: (units (unknown) date) unknown) (unknown) (no (unknown) (unknown) Procedure: XR (units ( unknown) date) chest 1V unknown) (unknown) (no (unknown) (unknown) Pulse Oximetry (units (unknown) date) 100 05/24/22 09:41 unknown) (unknown) (no (unknown) (unknown) Pulse Oximetry (units (unknown) date) 100 unknown) (unknown) (no (unknown) (unknown) Pulse Rate 87 (units ( unknown) date) 05/24/22 09:41 unknown) (unknown) (no (unknown) (unknown) Pulse Rate 87 (units ( unknown) date) unknown) (unknown) (no (unknown) (unknown) RDW (11.6-14.8) % (units (unknown) date) unknown) (unknown) (no (unknown) (unknown) RDW 13.6 (units (unkno wn) date) (11.6-14.8) % unknown) (unknown) (no (unknown) (unknown) RESPIRATORY: See (units (unknown) date) HPI unknown) (unknown) (no (unknown) (unknown) RESPIRATORY: (units (u nknown) date) Breath sounds unknown) equal bilaterally, no wheezes rales or rhonchi. (unknown) (no (unknown) (unknown) Referrals: (units (unk nown) date) unknown) (unknown) (no (unknown) (unknown) Related Data (units (u nknown) date) unknown) (unknown) (no (unknown) (unknown) Respiratory Rate (units (unknown) date) 18 05/24/22 09:41 unknown) (unknown) (no (unknown) (unknown) Respiratory Rate (units (unknown) date) 18 unknown) (unknown) (no (unknown) (unknown) Result diagrams: (units (unknown) date) unknown) (unknown) (no (unknown) (unknown) Review of Systems (units (unknown) date) unknown) (unknown) (no (unknown) (unknown) SKIN: No rash, no (units (unknown) date) erythema, no unknown) pruritus (unknown) (no (unknown) (unknown) SKIN: Warm, dry, (units (unknown) date) no laceration, no unknown) petechiae, no rashes or lesions. (unknown) (no (unknown) (unknown) Salivary gland (units (unknown) date) disorder unknown) (unknown) (no (unknown) (unknown) Shoulder pain, (units (unknown) date) left (-2015) unknown) (unknown) (no (unknown) (unknown) Signed By: (units (unk nown) date) unknown) (unknown) (no (unknown) (unknown) Since February she has (units (unknown) date) also lost unknown) significant amount of weight without trying. She (unknown) (no (unknown) (unknown) Smoking Status: (units (unknown) date) Former smoker unknown) (unknown) (no (unknown) (unknown) Smoking Status: (units (unknown) date) Former smoker unknown) (unknown) (no (unknown) (unknown) Social History (units (unknown) date) (Reviewed 05/24/22 unknown) @ 10:21 by Joceline Lara DO) (unknown) (no (unknown) (unknown) Sodium (137-145) (units (unknown) date) mmol/L unknown) (unknown) (no (unknown) (unknown) Sodium 137 (units (unk nown) date) (137-145) mmol/L unknown) (unknown) (no (unknown) (unknown) Source: patient (units (unknown) date) unknown) (unknown) (no (unknown) (unknown) Stated Complaint: (units (unknown) date) Chest pain unknown) (unknown) (no (unknown) (unknown) Substance Use (units ( unknown) date) Type: does not use unknown) (unknown) (no (unknown) (unknown) Surgical History (units (unknown) date) (Reviewed 05/24/22 unknown) @ 10:21 by Joceline Lara DO) (unknown) (no (unknown) (unknown) Surgical changes (units (unknown) date) and devices:? unknown) None.? (unknown) (no (unknown) (unknown) TECHNIQUE:? One (units (unknown) date) view of the chest unknown) was acquired.? (unknown) (no (unknown) (unknown) Temperature 98.9 (units (unknown) date) F 05/24/22 09:41 unknown) (unknown) (no (unknown) (unknown) Temperature 98.9 (units (unknown) date) F unknown) (unknown) (no (unknown) (unknown) This can be (units (un known) date) further evaluated unknown) with CT of chest as an outpatient if clinically (unknown) (no (unknown) (unknown) Time Seen by (units (u nknown) date) Provider: 05/24/22 unknown) 09:58 (unknown) (no (unknown) (unknown) Total Bilirubin (units (unknown) date) (0.2-1.3) mg/dL unknown) (unknown) (no (unknown) (unknown) Total Bilirubin (units (unknown) date) 0.5 (0.2-1.3) unknown) mg/dL (unknown) (no (unknown) (unknown) Total Creatine (units (unknown) date) Kinase (30-135) unknown) U/L (unknown) (no (unknown) (unknown) Total Creatine (units (unknown) date) Kinase 57 (30-135) unknown) U/L (unknown) (no (unknown) (unknown) Total Protein (units ( unknown) date) (6.3-8.2) g/dL unknown) (unknown) (no (unknown) (unknown) Total Protein 7.6 (units (unknown) date) (6.3-8.2) g/dL unknown) (unknown) (no (unknown) (unknown) Troponin + CK (units ( unknown) date) Cardiac Panel Stat unknown) (unknown) (no (unknown) (unknown) Troponin I < (units (u nknown) date) 0.012 (0.01-0.034) unknown) ng/mL (unknown) (no (unknown) (unknown) Troponin I (units (unk nown) date) (0.01-0.034) ng/mL unknown) (unknown) (no (unknown) (unknown) Vital Signs (units (un known) date) unknown) (unknown) (no (unknown) (unknown) Vital signs: (units (u nknown) date) unknown) (unknown) (no (unknown) (unknown) XR chest 1V Stat (units (unknown) date) unknown) (unknown) (no (unknown) (unknown) [DIPHENHYDRAMINE] (units (unknown) date) unknown) (unknown) (no (unknown) (unknown) [Embedded Image (units (unknown) date) Not Available] unknown) (unknown) (no (unknown) (unknown) appear (units (unkno wn) date) unknown) (unknown) (no (unknown) (unknown) aspirin [ASPIRIN] (units (unknown) date) Allergy Unknown unknown) Verified 05/24/22 09:45 (unknown) (no (unknown) (unknown) beea venom (units (unk nown) date) Allergy Unknown unknown) Uncoded 05/24/22 09:45 (unknown) (no (unknown) (unknown) been ongoing since (units (unknown) date) February of 2022. She unknown) has had increasing shortness of breath with (unknown) (no (unknown) (unknown) bupropion (units (unkn own) date) [BUPROPION] unknown) Allergy Unknown Verified 05/24/22 09:45 (unknown) (no (unknown) (unknown) can no longer (units ( unknown) date) full flight of unknown) stairs. Which is very abnormal for her she in (unknown) (no (unknown) (unknown) changed in (units (unk nown) date) appearance from unknown) prior study.? Heart size is normal.? (unknown) (no (unknown) (unknown) codiene Allergy (units (unknown) date) Unknown Uncoded unknown) 05/24/22 09:45 (unknown) (no (unknown) (unknown) confusion (units (unkn own) date) unknown) (unknown) (no (unknown) (unknown) constipation, (units ( unknown) date) melena. unknown) (unknown) (no (unknown) (unknown) denies any blood (units (unknown) date) in her stool. unknown) (unknown) (no (unknown) (unknown) dimer. At this (units (unknown) date) time I have no unknown) explanation for her lung fluttering or heart (unknown) (no (unknown) (unknown) diphenhydramine (units (unknown) date) Allergy Unknown unknown) Verified 05/24/22 09:45 (unknown) (no (unknown) (unknown) doxepin [DOXEPIN] (units (unknown) date) Allergy Unknown unknown) Verified 05/24/22 09:45 (unknown) (no (unknown) (unknown) epinephrine (units (un known) date) [EPINEPHRINE] unknown) Allergy Unknown Verified 05/24/22 09:45 (unknown) (no (unknown) (unknown) exertion since (units (unknown) date) then as well. As unknown) gotten worse over last 3 days. She says she (unknown) (no (unknown) (unknown) fluttering. She (units (unknown) date) is not anemic. At unknown) this time recommend outpatient follow-up. (unknown) (no (unknown) (unknown) follow-up with (units (unknown) date) her PCP in regards unknown) to further imaging or testing (unknown) (no (unknown) (unknown) fullness.? (units (unk nown) date) unknown) (unknown) (no (unknown) (unknown) guarding or (units (un known) date) rebound.s unknown) (unknown) (no (unknown) (unknown) ient: (units (unkno wn) date) Ross,Yenni F unknown) (unknown) (no (unknown) (unknown) indicated. (units (unk nown) date) unknown) (unknown) (no (unknown) (unknown) intact (units (unkno wn) date) unknown) (unknown) (no (unknown) (unknown) membranes (units (unkn own) date) unknown) (unknown) (no (unknown) (unknown) minerals Allergy (units (unknown) date) Unknown Uncoded unknown) 05/24/22 09:45 (unknown) (no (unknown) (unknown) morphine (units (unkno wn) date) [MORPHINE] Allergy unknown) Unknown Verified 05/24/22 09:45 (unknown) (no (unknown) (unknown) olanzapine (units (unk nown) date) [OLANZAPINE] unknown) Allergy Unknown Verified 05/24/22 09:45 (unknown) (no (unknown) (unknown) pain (units (unkno wn) date) unknown) (unknown) (no (unknown) (unknown) patient blood (units ( unknown) date) work today is unknown) overall reassuring negative troponin negative D- (unknown) (no (unknown) (unknown) shortness of (units (un known) date) breath and chest unknown) fluttering which she thinks is her lung. This has (unknown) (no (unknown) (unknown) significantly (units ( unknown) date) unknown) (unknown) (no (unknown) (unknown) unremarkable.? (units (unknown) date) unknown) (unknown) (no (unknown) (unknown) wave inversion (units (unknown) date) unknown) (unknown) (no (unknown) (unknown) zinc [ZINC] (units (un known) date) Allergy Unknown unknown) Verified 05/24/22 09:45 Result panel 12 (unknown) (no (unknown) (unknown) (no value) (units (unk nown) date) unknown) (unknown) (no (unknown) (unknown) Radiologist's (units ( unknown) date) Impression: unknown) (unknown) (no (unknown) (unknown) Date of Service: (units (unknown) date) 05/24/22 unknown) (unknown) (no (unknown) (unknown) (no value) (units (unk nown) date) unknown) (unknown) (no (unknown) (unknown) <Electronically (units (unknown) date) signed by Joceline unknown) Monica Lara> (unknown) (no (unknown) (unknown) 05/24/22 09:47 (units (unknown) date) unknown) (unknown) (no (unknown) (unknown) 05/24/22 1409 (units ( unknown) date) unknown) (unknown) (no (unknown) (unknown) Allergies (units (unkn own) date) unknown) (unknown) (no (unknown) (unknown) ED Orders (units (unkn own) date) unknown) (unknown) (no (unknown) (unknown) Emergency Report (units (unknown) date) unknown) (unknown) (no (unknown) (unknown) Home Medications (units (unknown) date) unknown) (unknown) (no (unknown) (unknown) [facility] (units (unknown) date) [address] unknown) [place] [address] (unknown) (no (unknown) (unknown) Lab Results (units (un known) date) unknown) (unknown) (no (unknown) (unknown) Vital Signs - 8 (units (unknown) date) hr unknown) (unknown) (no (unknown) (unknown) (no value) (units (unk nown) date) unknown) (unknown) (no (unknown) (unknown) 05/24/22 05/24/22 (units (unknown) date) 05/24/22 unknown) Range/Units (unknown) (no (unknown) (unknown) 05/24/22 (units (unkno wn) date) Range/Units unknown) (unknown) (no (unknown) (unknown) 09:47 (units (unkno wn) date) unknown) (unknown) (no (unknown) (unknown) 09:47 09:47 09:47 (units (unknown) date) unknown) (unknown) (no (unknown) (unknown) No Known Home (units ( unknown) date) Medications unknown) (unknown) (no (unknown) (unknown) Today workup with (units (unknown) date) the emergency unknown) department was overall reassuring. Please (unknown) (no (unknown) (unknown) 05/24/22 (units (unkno wn) date) unknown) (unknown) (no (unknown) (unknown) Heart (units (unkno wn) date) palpitations unknown) (unknown) (no (unknown) (unknown) Medication (units (unk nown) date) Instructions unknown) Recorded Confirmed (unknown) (no (unknown) (unknown) or any new, (units (un known) date) worsening or unknown) concerning symptoms (unknown) (no (unknown) (unknown) pain. (units (unkno wn) date) unknown) (unknown) (no (unknown) (unknown) *Continue to take (units (unknown) date) medications as unknown) directed (unknown) (no (unknown) (unknown) *Follow up with (units (unknown) date) your primary care unknown) provider in 2-3 days or call [phone] (unknown) (no (unknown) (unknown) *Return to ER if (units (unknown) date) you should have unknown) INCREASING FLUTTERING PAIN SHORTNESS OF BREATH (unknown) (no (unknown) (unknown) *What to do: I do (units (unknown) date) not have an unknown) explanation for the feeling you are experiencing. (unknown) (no (unknown) (unknown) *You have been (units (unknown) date) diagnosed with unknown) (unknown) (no (unknown) (unknown) 05/24/22 09:40 (units (unknown) date) unknown) (unknown) (no (unknown) (unknown) 05/24/22 09:47 (units (unknown) date) unknown) (unknown) (no (unknown) (unknown) 09:40 (units (unkno wn) date) unknown) (unknown) (no (unknown) (unknown) 09:40 05/24/22 (units (unknown) date) unknown) (unknown) (no (unknown) (unknown) 09:41 05/24/22 (units (unknown) date) unknown) (unknown) (no (unknown) (unknown) 10:00 05/24/22 (units (unknown) date) unknown) (unknown) (no (unknown) (unknown) 10:30 (units (unkno wn) date) unknown) (unknown) (no (unknown) (unknown) 10:30 05/24/22 (units (unknown) date) unknown) (unknown) (no (unknown) (unknown) 11:00 (units (unkno wn) date) unknown) (unknown) (no (unknown) (unknown) 11:00 05/24/22 (units (unknown) date) unknown) (unknown) (no (unknown) (unknown) 12 point review (units (unknown) date) of systems is unknown) negative except for those stated above and HPI (unknown) (no (unknown) (unknown) [id number] (units (unkno wn) date) unknown) (unknown) (no (unknown) (unknown) 500 mg every 12 (units (unknown) date) hours NOT BOTH unknown) (unknown) (no (unknown) (unknown) ? (units (unkno wn) date) unknown) (unknown) (no (unknown) (unknown) ABDOMEN: Soft, (units (unknown) date) nontender. unknown) Normoactive bowel sounds all 4 quadrants. No (unknown) (no (unknown) (unknown) ALT (<35) IU/L (units (unknown) date) unknown) (unknown) (no (unknown) (unknown) ALT 27 (<35) IU/L (units (unknown) date) unknown) (unknown) (no (unknown) (unknown) AST (14-36) IU/L (units (unknown) date) unknown) (unknown) (no (unknown) (unknown) AST 29 (14-36) (units (unknown) date) IU/L unknown) (unknown) (no (unknown) (unknown) Accession Number: (units (unknown) date) [id number] ?? unknown) (unknown) (no (unknown) (unknown) Acct:[id number] (units (unknown) date) unknown) (unknown) (no (unknown) (unknown) Activity (units (unkno wn) date) Restrictions/Addit unknown) ional Instructions: (unknown) (no (unknown) (unknown) Age/Sex: 57 / F (units (unknown) date) unknown) (unknown) (no (unknown) (unknown) Age/Sex: 57 / F (units (unknown) date) unknown) (unknown) (no (unknown) (unknown) Albumin (3.5-5.0) (units (unknown) date) g/dL unknown) (unknown) (no (unknown) (unknown) Albumin 5.0 (units (un known) date) (3.5-5.0) g/dL unknown) (unknown) (no (unknown) (unknown) Albumin/Globulin (units (unknown) date) Ratio (1.0-2.8) unknown) (unknown) (no (unknown) (unknown) Albumin/Globulin (units (unknown) date) Ratio 1.9 unknown) (1.0-2.8) (unknown) (no (unknown) (unknown) Alkaline (units (unkno wn) date) Phosphatase unknown) (38-126) U/L (unknown) (no (unknown) (unknown) Alkaline (units (unkno wn) date) Phosphatase 66 unknown) (38-126) U/L (unknown) (no (unknown) (unknown) Allergy/AdvReac (units (unknown) date) Type Severity unknown) Reaction Status Date / Time (unknown) (no (unknown) (unknown) Anxiety (Unknown) (units (unknown) date) unknown) (unknown) (no (unknown) (unknown) Arthritis (units (unkn own) date) (Unknown) unknown) (unknown) (no (unknown) (unknown) BNP [NT-proBNP (units (unknown) date) (BNP-Adult 18+)] unknown) Stat (unknown) (no (unknown) (unknown) BUN (7-17) mg/dL (units (unknown) date) unknown) (unknown) (no (unknown) (unknown) BUN 13 (7-17) (units ( unknown) date) mg/dL unknown) (unknown) (no (unknown) (unknown) BUN/Creatinine (units (unknown) date) Ratio (6-22) unknown) (unknown) (no (unknown) (unknown) BUN/Creatinine (units (unknown) date) Ratio 17.6 (6-22) unknown) (unknown) (no (unknown) (unknown) Baso # (Auto) (units ( unknown) date) (0-100) /uL unknown) (unknown) (no (unknown) (unknown) Baso # (Auto) 0 (units (unknown) date) (0-100) /uL unknown) (unknown) (no (unknown) (unknown) Baso % (Auto) (units ( unknown) date) (0-2) % unknown) (unknown) (no (unknown) (unknown) Baso % (Auto) 0.5 (units (unknown) date) (0-2) % unknown) (unknown) (no (unknown) (unknown) Blood Pressure (units (unknown) date) 112/67 unknown) (unknown) (no (unknown) (unknown) Blood Pressure (units (unknown) date) 132/83 05/24/22 unknown) 09:40 (unknown) (no (unknown) (unknown) Blood Pressure (units (unknown) date) 126/68 114/64 unknown) (unknown) (no (unknown) (unknown) Blood Pressure (units (unknown) date) 132/83 132/83 unknown) (unknown) (no (unknown) (unknown) Bones and chest (units (unknown) date) wall:? No unknown) suspicious bony lesions.? Overlying soft tissues (unknown) (no (unknown) (unknown) CARDIOVASCULAR: (units (unknown) date) Denies chest pain, unknown) palpitations, orthopnea, edema (unknown) (no (unknown) (unknown) CARDIOVASCULAR: (units (unknown) date) Regular rate and unknown) rhythm without murmurs, rubs or gallops. (unknown) (no (unknown) (unknown) CK-MB (CK-2) (units (u nknown) date) unknown) (unknown) (no (unknown) (unknown) CK-MB (CK-2) TNP (units (unknown) date) unknown) (unknown) (no (unknown) (unknown) CK-MB (CK-2) Rel (units (unknown) date) Index unknown) (unknown) (no (unknown) (unknown) CK-MB (CK-2) Rel (units (unknown) date) Index TNP unknown) (unknown) (no (unknown) (unknown) COMPARISON:? (units (u nknown) date) [facility], unknown) CR, XR CHEST 1V, 10/25/2019, 17:37. (unknown) (no (unknown) (unknown) Calcium (units (unkno wn) date) (8.4-10.2) mg/dL unknown) (unknown) (no (unknown) (unknown) Calcium 9.2 (units (un known) date) (8.4-10.2) mg/dL unknown) (unknown) (no (unknown) (unknown) Carbon Dioxide (units (unknown) date) (22-32) mmol/L unknown) (unknown) (no (unknown) (unknown) Carbon Dioxide 29 (units (unknown) date) (22-32) mmol/L unknown) (unknown) (no (unknown) (unknown) Chest x-ray: (units (u nknown) date) unknown) (unknown) (no (unknown) (unknown) Chief Complaint: (units (unknown) date) Chest Pain unknown) (unknown) (no (unknown) (unknown) Chloride (98-107) (units (unknown) date) mmol/L unknown) (unknown) (no (unknown) (unknown) Chloride 99 (units (un known) date) (98-107) mmol/L unknown) (unknown) (no (unknown) (unknown) Clinical (units (unkno wn) date) Impression: unknown) (unknown) (no (unknown) (unknown) Complete Blood (units (unknown) date) Count AUTO DIFF unknown) Stat (unknown) (no (unknown) (unknown) Comprehensive (units ( unknown) date) Metabolic Panel unknown) Stat (unknown) (no (unknown) (unknown) Course (units (unkno wn) date) unknown) (unknown) (no (unknown) (unknown) Creatinine (units (unk nown) date) (0.52-1.04) mg/dL unknown) (unknown) (no (unknown) (unknown) Creatinine 0.74 (units (unknown) date) (0.52-1.04) mg/dL unknown) (unknown) (no (unknown) (unknown) D Dimer Stat (units (u nknown) date) unknown) (unknown) (no (unknown) (unknown) D-Dimer 210 (units (un known) date) (<230) ng/mL unknown) (unknown) (no (unknown) (unknown) D-Dimer (<230) (units (unknown) date) ng/mL unknown) (unknown) (no (unknown) (unknown) : 1965 (units (unknown) date) Acct:[id number] unknown) (unknown) (no (unknown) (unknown) : 1965 (units (unknown) date) unknown) (unknown) (no (unknown) (unknown) Date of Service: (units (unknown) date) 05/24/22 unknown) (unknown) (no (unknown) (unknown) Degenerative disc (units (unknown) date) disease (Unknown) unknown) (unknown) (no (unknown) (unknown) Departure (units (unkn own) date) unknown) (unknown) (no (unknown) (unknown) Dictated by: Usama (units (unknown) date) Mitchell Elizalde on unknown) 05/24/2022 at 9:06 ? ? (unknown) (no (unknown) (unknown) Discharge Plan (units (unknown) date) unknown) (unknown) (no (unknown) (unknown) ECG Data (units (unkno wn) date) unknown) (unknown) (no (unknown) (unknown) EKG-12 Lead Stat (units (unknown) date) unknown) (unknown) (no (unknown) (unknown) ER Physician: (units ( unknown) date) Joceline Lara unknown) D.O. (unknown) (no (unknown) (unknown) EXTREMITIES: (units (u nknown) date) Normal range of unknown) motion, no clubbing or edema. Neurovascularly (unknown) (no (unknown) (unknown) Eos # (Auto) (units (u nknown) date) (0-450) /uL unknown) (unknown) (no (unknown) (unknown) Eos # (Auto) 100 (units (unknown) date) (0-450) /uL unknown) (unknown) (no (unknown) (unknown) Eos % (Auto) (units (u nknown) date) (2-4) % unknown) (unknown) (no (unknown) (unknown) Eos % (Auto) 0.8 (units (unknown) date) L (2-4) % unknown) (unknown) (no (unknown) (unknown) Estimated GFR > (units (unknown) date) 60 (>60) mL/min unknown) (unknown) (no (unknown) (unknown) Estimated GFR (units ( unknown) date) (>60) mL/min unknown) (unknown) (no (unknown) (unknown) Exam (units (unkno wn) date) unknown) (unknown) (no (unknown) (unknown) FINDINGS:? (units (unk nown) date) unknown) (unknown) (no (unknown) (unknown) Family History (units (unknown) date) (Reviewed 05/24/22 unknown) @ 10:21 by Joceline Lara DO) (unknown) (no (unknown) (unknown) GASTROINTESTINAL: (units (unknown) date) Denies nausea, unknown) vomiting, abdominal pain, diarrhea, (unknown) (no (unknown) (unknown) GENERAL: Pleasant (units (unknown) date) alert 57-year-old unknown) female (unknown) (no (unknown) (unknown) GENERAL: Denies (units (unknown) date) chills, fatigue, unknown) malaise, fever, sweats, travel (unknown) (no (unknown) (unknown) : Denies (units (unkn own) date) dysuria, unknown) frequency, incontinence, hematuria, urinary retention, flank (unknown) (no (unknown) (unknown) General (units (unkno wn) date) unknown) (unknown) (no (unknown) (unknown) GenericComposite[ (units (unknown) date) Plt Count unknown) (150-400) X10^3/uL ] (unknown) (no (unknown) (unknown) GenericComposite[ (units (unknown) date) Plt Count 289 unknown) (150-400) X10^3/uL ] (unknown) (no (unknown) (unknown) GenericComposite[ (units (unknown) date) RBC (4.0-5.2) unknown) X10^6/uL ] (unknown) (no (unknown) (unknown) GenericComposite[ (units (unknown) date) RBC 5.22 H unknown) (4.0-5.2) X10^6/uL ] (unknown) (no (unknown) (unknown) GenericComposite[ (units (unknown) date) WBC (4.5-11.0) unknown) X10^3/uL ] (unknown) (no (unknown) (unknown) GenericComposite[ (units (unknown) date) WBC 8.4 (4.5-11.0) unknown) X10^3/uL ] (unknown) (no (unknown) (unknown) Globulin (units (unkno wn) date) (1.7-4.1) g/dL unknown) (unknown) (no (unknown) (unknown) Globulin 2.6 (units (u nknown) date) (1.7-4.1) g/dL unknown) (unknown) (no (unknown) (unknown) Glucose (70-100) (units (unknown) date) mg/dL unknown) (unknown) (no (unknown) (unknown) Glucose 137 H (units ( unknown) date) (70-100) mg/dL unknown) (unknown) (no (unknown) (unknown) H/O tubal (units (unkn own) date) ligation (1986) unknown) (unknown) (no (unknown) (unknown) HEENT: Denies (units ( unknown) date) sinus pain, ear unknown) pain, sore throat, difficulty swallowing, neck (unknown) (no (unknown) (unknown) HEENT: Head (units (un known) date) atraumatic,EOMI, unknown) pupils reactive, face symmetric, moist mucous (unknown) (no (unknown) (unknown) HPI - Chest Pain (units (unknown) date) unknown) (unknown) (no (unknown) (unknown) HPI narrative: (units (unknown) date) unknown) (unknown) (no (unknown) (unknown) Hct (36-46) % (units ( unknown) date) unknown) (unknown) (no (unknown) (unknown) Hct 43.2 (36-46) (units (unknown) date) % unknown) (unknown) (no (unknown) (unknown) Hgb (12.0-16.0) (units (unknown) date) g/dL unknown) (unknown) (no (unknown) (unknown) Hgb 15.0 (units (unkno wn) date) (12.0-16.0) g/dL unknown) (unknown) (no (unknown) (unknown) History of (units (unk nown) date) Present Illness unknown) (unknown) (no (unknown) (unknown) IMPRESSION:? No (units (unknown) date) acute unknown) cardiopulmonary pathology.? Stable appearing left hilar (unknown) (no (unknown) (unknown) INDICATIONS:? (units ( unknown) date) chest pain unknown) (unknown) (no (unknown) (unknown) Ibuprofen 600 mg (units (unknown) date) every 6 hours if unknown) needed for [id number] pain OR naproxen (unknown) (no (unknown) (unknown) Imaging Data (units (u nknown) date) unknown) (unknown) (no (unknown) (unknown) Initial Vital (units ( unknown) date) Signs unknown) (unknown) (no (unknown) (unknown) Initial Vital (units ( unknown) date) Signs: unknown) (unknown) (no (unknown) (unknown) Instructions: DI (units (unknown) date) for Shortness of unknown) Breath (unknown) (no (unknown) (unknown) Interpretation: (units (unknown) date) unknown) (unknown) (no (unknown) (unknown) October she was (units (unknown) date) very active able unknown) to do 51 pushups at a time she was training. (unknown) (no (unknown) (unknown) Lab Data (units (unkno wn) date) unknown) (unknown) (no (unknown) (unknown) Labs: (units (unkno wn) date) unknown) (unknown) (no (unknown) (unknown) Lipase (23-300) (units (unknown) date) U/L unknown) (unknown) (no (unknown) (unknown) Lipase 107 (units (unk nown) date) (23-300) U/L unknown) (unknown) (no (unknown) (unknown) Lipase Stat (units (un known) date) unknown) (unknown) (no (unknown) (unknown) Loc: ED (units (unkno wn) date) unknown) (unknown) (no (unknown) (unknown) Lungs and (units (unkn own) date) pleura:? Lungs are unknown) clear.? No pleural effusions or pneumothorax.? (unknown) (no (unknown) (unknown) Lymph # (Auto) (units (unknown) date) (7928-4453) /uL unknown) (unknown) (no (unknown) (unknown) Lymph # (Auto) (units (unknown) date) 2300 (4224-2757) unknown) /uL (unknown) (no (unknown) (unknown) Lymph % (Auto) (units (unknown) date) (25-40) % unknown) (unknown) (no (unknown) (unknown) Lymph % (Auto) (units (unknown) date) 27.0 (25-40) % unknown) (unknown) (no (unknown) (unknown) MCH (26-34) PG (units (unknown) date) unknown) (unknown) (no (unknown) (unknown) MCH 28.7 (26-34) (units (unknown) date) PG unknown) (unknown) (no (unknown) (unknown) MCHC (30-36) % (units (unknown) date) unknown) (unknown) (no (unknown) (unknown) MCHC 34.7 (30-36) (units (unknown) date) % unknown) (unknown) (no (unknown) (unknown) MCV (80-100) fL (units (unknown) date) unknown) (unknown) (no (unknown) (unknown) MCV 82.7 (80-100) (units (unknown) date) fL unknown) (unknown) (no (unknown) (unknown) MDM - Chest Pain (units (unknown) date) unknown) (unknown) (no (unknown) (unknown) MDM Narrative (units ( unknown) date) unknown) (unknown) (no (unknown) (unknown) MR#: [id number] (units (unknown) date) unknown) (unknown) (no (unknown) (unknown) MUSCULOSKELETAL: (units (unknown) date) Denies weakness, unknown) joint pain, or bony pain (unknown) (no (unknown) (unknown) Magnesium (units (unkn own) date) (1.6-2.3) mg/dL unknown) (unknown) (no (unknown) (unknown) Magnesium 2.1 (units ( unknown) date) (1.6-2.3) mg/dL unknown) (unknown) (no (unknown) (unknown) Magnesium Stat (units (unknown) date) unknown) (unknown) (no (unknown) (unknown) Mediastinum:? (units ( unknown) date) Previously unknown) described left hilar fullness is again seen not (unknown) (no (unknown) (unknown) Medical History (units (unknown) date) (Updated 05/24/22 unknown) @ 11:23 by Joceline Lara DO) (unknown) (no (unknown) (unknown) Medical decision (units (unknown) date) making narrative: unknown) (unknown) (no (unknown) (unknown) Mehran Asencio, (units (unknown) date) MD [Primary Care unknown) Provider] - (unknown) (no (unknown) (unknown) Mode of arrival: (units (unknown) date) Ambulatory unknown) (unknown) (no (unknown) (unknown) Kings # (Auto) (units ( unknown) date) (0-900) /uL unknown) (unknown) (no (unknown) (unknown) Kings # (Auto) 500 (units (unknown) date) (0-900) /uL unknown) (unknown) (no (unknown) (unknown) Kings % (Auto) (units ( unknown) date) (3-14) % unknown) (unknown) (no (unknown) (unknown) Kings % (Auto) 5.9 (units (unknown) date) (3-14) % unknown) (unknown) (no (unknown) (unknown) Mother (units (unknown) date) No problems noted. unknown) (unknown) (no (unknown) (unknown) NEUROLOGIC: (units (un known) date) Denies weakness, unknown) dizziness, headache, numbness, change in speech, (unknown) (no (unknown) (unknown) NEUROLOGICAL: (units ( unknown) date) Alert and oriented unknown) x4.Normal gait and speech. (unknown) (no (unknown) (unknown) NT-Pro-B (units (unkno wn) date) Natriuret Pep unknown) (<125) pg/mL (unknown) (no (unknown) (unknown) NT-Pro-B (units (unkno wn) date) Natriuret Pep 39 unknown) (<125) pg/mL (unknown) (no (unknown) (unknown) Narrative: (units (unk nown) date) unknown) (unknown) (no (unknown) (unknown) Neut # (Auto) (units ( unknown) date) (7903-3954) /uL unknown) (unknown) (no (unknown) (unknown) Neut # (Auto) (units ( unknown) date) 5500 (4750-6279) unknown) /uL (unknown) (no (unknown) (unknown) Neut % (Auto) (units ( unknown) date) (50-75) % unknown) (unknown) (no (unknown) (unknown) Neut % (Auto) (units ( unknown) date) 65.8 (50-75) % unknown) (unknown) (no (unknown) (unknown) No Action (units (unkn own) date) unknown) (unknown) (no (unknown) (unknown) No Known Home (units ( unknown) date) Medications unknown) 03/27/18 10/31/19 (unknown) (no (unknown) (unknown) Normal sinus (units (u nknown) date) rhythm rate 85 NE unknown) interval 130 QRS [address] changes or T- (unknown) (no (unknown) (unknown) Ordered: (units (unkno wn) date) unknown) (unknown) (no (unknown) (unknown) Ordering (units (unkno wn) date) Provider: unknown) Joceline Lara D.O. (unknown) (no (unknown) (unknown) Orders (units (unkno wn) date) unknown) (unknown) (no (unknown) (unknown) Oxygen Delivery (units (unknown) date) Method unknown) (unknown) (no (unknown) (unknown) Oxygen Delivery (units (unknown) date) Method Room Air unknown) (unknown) (no (unknown) (unknown) PROCEDURE:? XR (units (unknown) date) CHEST 1V unknown) (unknown) (no (unknown) (unknown) PSYCHIATRIC: No (units (unknown) date) concerning unknown) psychosocial issues. (unknown) (no (unknown) (unknown) PTSD (units (unkno wn) date) (post-traumatic unknown) stress disorder) (Unknown) (unknown) (no (unknown) (unknown) Patient (units (unkno wn) date) Disposition: Home unknown) (unknown) (no (unknown) (unknown) Patient History (units (unknown) date) unknown) (unknown) (no (unknown) (unknown) Patient is a (units (u nknown) date) 57-year-old female unknown) who does not go to doctors presenting with (unknown) (no (unknown) (unknown) Patient is (units (unk nown) date) complaining of unknown) shortness of breath weight loss generalized weakness (unknown) (no (unknown) (unknown) Patient: (units (unkno wn) date) Yenni Robbins unknown) MR#: [id number] (unknown) (no (unknown) (unknown) Potassium (units (unkn own) date) (3.4-5.1) mmol/L unknown) (unknown) (no (unknown) (unknown) Potassium 3.6 (units ( unknown) date) (3.4-5.1) mmol/L unknown) (unknown) (no (unknown) (unknown) Prescriptions: (units (unknown) date) unknown) (unknown) (no (unknown) (unknown) Procedure: XR (units ( unknown) date) chest 1V unknown) (unknown) (no (unknown) (unknown) Pulse Oximetry 97 (units (unknown) date) unknown) (unknown) (no (unknown) (unknown) Pulse Oximetry 99 (units (unknown) date) 05/24/22 09:40 unknown) (unknown) (no (unknown) (unknown) Pulse Oximetry (units (unknown) date) 100 99 unknown) (unknown) (no (unknown) (unknown) Pulse Oximetry 98 (units (unknown) date) 98 unknown) (unknown) (no (unknown) (unknown) Pulse Rate 81 (units ( unknown) date) unknown) (unknown) (no (unknown) (unknown) Pulse Rate 79 77 (units (unknown) date) unknown) (unknown) (no (unknown) (unknown) Pulse Rate 87 (units ( unknown) date) unknown) (unknown) (no (unknown) (unknown) RDW (11.6-14.8) % (units (unknown) date) unknown) (unknown) (no (unknown) (unknown) RDW 13.6 (units (unkno wn) date) (11.6-14.8) % unknown) (unknown) (no (unknown) (unknown) RESPIRATORY: See (units (unknown) date) HPI unknown) (unknown) (no (unknown) (unknown) RESPIRATORY: (units (u nknown) date) Breath sounds unknown) equal bilaterally, no wheezes rales or rhonchi. (unknown) (no (unknown) (unknown) Referrals: (units (unk nown) date) unknown) (unknown) (no (unknown) (unknown) Related Data (units (u nknown) date) unknown) (unknown) (no (unknown) (unknown) Respiratory Rate (units (unknown) date) 18 05/24/22 09:40 unknown) (unknown) (no (unknown) (unknown) Respiratory Rate (units (unknown) date) 21 unknown) (unknown) (no (unknown) (unknown) Respiratory Rate (units (unknown) date) 18 18 unknown) (unknown) (no (unknown) (unknown) Respiratory Rate (units (unknown) date) 22 25 H unknown) (unknown) (no (unknown) (unknown) Result diagrams: (units (unknown) date) unknown) (unknown) (no (unknown) (unknown) Review of Systems (units (unknown) date) unknown) (unknown) (no (unknown) (unknown) SKIN: No rash, no (units (unknown) date) erythema, no unknown) pruritus (unknown) (no (unknown) (unknown) SKIN: Warm, dry, (units (unknown) date) no laceration, no unknown) petechiae, no rashes or lesions. (unknown) (no (unknown) (unknown) Salivary gland (units (unknown) date) disorder unknown) (unknown) (no (unknown) (unknown) Shoulder pain, (units (unknown) date) left (-2015) unknown) (unknown) (no (unknown) (unknown) Signed By: (units (unk nown) date) unknown) (unknown) (no (unknown) (unknown) Since February she has (units (unknown) date) also lost unknown) significant amount of weight without trying. She (unknown) (no (unknown) (unknown) Smoking Status: (units (unknown) date) Former smoker unknown) (unknown) (no (unknown) (unknown) Smoking Status: (units (unknown) date) Former smoker unknown) (unknown) (no (unknown) (unknown) Social History (units (unknown) date) (Reviewed 05/24/22 unknown) @ 10:21 by Joceline Lara DO) (unknown) (no (unknown) (unknown) Sodium (137-145) (units (unknown) date) mmol/L unknown) (unknown) (no (unknown) (unknown) Sodium 137 (units (unk nown) date) (137-145) mmol/L unknown) (unknown) (no (unknown) (unknown) Source: patient (units (unknown) date) unknown) (unknown) (no (unknown) (unknown) Stated Complaint: (units (unknown) date) Chest pain unknown) (unknown) (no (unknown) (unknown) Substance Use (units ( unknown) date) Type: does not use unknown) (unknown) (no (unknown) (unknown) Surgical History (units (unknown) date) (Reviewed 05/24/22 unknown) @ 10:21 by Joceline Lara DO) (unknown) (no (unknown) (unknown) Surgical changes (units (unknown) date) and devices:? unknown) None.? (unknown) (no (unknown) (unknown) TECHNIQUE:? One (units (unknown) date) view of the chest unknown) was acquired.? (unknown) (no (unknown) (unknown) Temperature (units (un known) date) unknown) (unknown) (no (unknown) (unknown) Temperature 98.9 (units (unknown) date) F unknown) (unknown) (no (unknown) (unknown) This can be (units (un known) date) further evaluated unknown) with CT of chest as an outpatient if clinically (unknown) (no (unknown) (unknown) Time Seen by (units (u nknown) date) Provider: 05/24/22 unknown) 09:58 (unknown) (no (unknown) (unknown) Total Bilirubin (units (unknown) date) (0.2-1.3) mg/dL unknown) (unknown) (no (unknown) (unknown) Total Bilirubin (units (unknown) date) 0.5 (0.2-1.3) unknown) mg/dL (unknown) (no (unknown) (unknown) Total Creatine (units (unknown) date) Kinase (30-135) unknown) U/L (unknown) (no (unknown) (unknown) Total Creatine (units (unknown) date) Kinase 57 (30-135) unknown) U/L (unknown) (no (unknown) (unknown) Total Protein (units ( unknown) date) (6.3-8.2) g/dL unknown) (unknown) (no (unknown) (unknown) Total Protein 7.6 (units (unknown) date) (6.3-8.2) g/dL unknown) (unknown) (no (unknown) (unknown) Troponin + CK (units ( unknown) date) Cardiac Panel Stat unknown) (unknown) (no (unknown) (unknown) Troponin I < (units (u nknown) date) 0.012 (0.01-0.034) unknown) ng/mL (unknown) (no (unknown) (unknown) Troponin I (units (unk nown) date) (0.01-0.034) ng/mL unknown) (unknown) (no (unknown) (unknown) Visit Report (units (u nknown) date) Forms: Patient unknown) Portal/API (unknown) (no (unknown) (unknown) Vital Signs (units (un known) date) unknown) (unknown) (no (unknown) (unknown) Vital signs: (units (u nknown) date) unknown) (unknown) (no (unknown) (unknown) XR chest 1V Stat (units (unknown) date) unknown) (unknown) (no (unknown) (unknown) [DIPHENHYDRAMINE] (units (unknown) date) unknown) (unknown) (no (unknown) (unknown) [Embedded Image (units (unknown) date) Not Available] unknown) (unknown) (no (unknown) (unknown) appear (units (unkno wn) date) unknown) (unknown) (no (unknown) (unknown) aspirin [ASPIRIN] (units (unknown) date) Allergy Unknown unknown) Verified 05/24/22 09:45 (unknown) (no (unknown) (unknown) beea venom (units (unk nown) date) Allergy Unknown unknown) Uncoded 05/24/22 09:45 (unknown) (no (unknown) (unknown) been on the (units (un known) date) monitor ECG no unknown) arrhythmia. She is not anemic. At this time (unknown) (no (unknown) (unknown) been ongoing since (units (unknown) date) February of 2022. She unknown) has had increasing shortness of breath with (unknown) (no (unknown) (unknown) bupropion (units (unkn own) date) [BUPROPION] unknown) Allergy Unknown Verified 05/24/22 09:45 (unknown) (no (unknown) (unknown) can no longer (units ( unknown) date) full flight of unknown) stairs. Which is very abnormal for her she in (unknown) (no (unknown) (unknown) changed in (units (unk nown) date) appearance from unknown) prior study.? Heart size is normal.? (unknown) (no (unknown) (unknown) codiene Allergy (units (unknown) date) Unknown Uncoded unknown) 05/24/22 09:45 (unknown) (no (unknown) (unknown) confusion (units (unkn own) date) unknown) (unknown) (no (unknown) (unknown) constipation, (units ( unknown) date) melena. unknown) (unknown) (no (unknown) (unknown) denies any blood (units (unknown) date) in her stool. unknown) (unknown) (no (unknown) (unknown) dimer. At this (units (unknown) date) time I have no unknown) explanation for her lung fluttering or heart (unknown) (no (unknown) (unknown) diphenhydramine (units (unknown) date) Allergy Unknown unknown) Verified 05/24/22 09:45 (unknown) (no (unknown) (unknown) doxepin [DOXEPIN] (units (unknown) date) Allergy Unknown unknown) Verified 05/24/22 09:45 (unknown) (no (unknown) (unknown) epinephrine (units (un known) date) [EPINEPHRINE] unknown) Allergy Unknown Verified 05/24/22 09:45 (unknown) (no (unknown) (unknown) exertion since (units (unknown) date) then as well. As unknown) gotten worse over last 3 days. She says she (unknown) (no (unknown) (unknown) fluttering. She (units (unknown) date) says she feels it unknown) in her back it is constantly there she has (unknown) (no (unknown) (unknown) follow-up with (units (unknown) date) her PCP in regards unknown) to further imaging or testing (unknown) (no (unknown) (unknown) fullness.? (units (unk nown) date) unknown) (unknown) (no (unknown) (unknown) guarding or (units (un known) date) rebound.s unknown) (unknown) (no (unknown) (unknown) ient: (units (unkno wn) date) Yenni Robbins F unknown) (unknown) (no (unknown) (unknown) indicated. (units (unk nown) date) unknown) (unknown) (no (unknown) (unknown) intact (units (unkno wn) date) unknown) (unknown) (no (unknown) (unknown) membranes (units (unkn own) date) unknown) (unknown) (no (unknown) (unknown) minerals Allergy (units (unknown) date) Unknown Uncoded unknown) 05/24/22 09:45 (unknown) (no (unknown) (unknown) morphine (units (unkno wn) date) [MORPHINE] Allergy unknown) Unknown Verified 05/24/22 09:45 (unknown) (no (unknown) (unknown) olanzapine (units (unk nown) date) [OLANZAPINE] unknown) Allergy Unknown Verified 05/24/22 09:45 (unknown) (no (unknown) (unknown) pain (units (unkno wn) date) unknown) (unknown) (no (unknown) (unknown) patient blood (units ( unknown) date) work today is unknown) overall reassuring negative troponin negative D- (unknown) (no (unknown) (unknown) recommend (units (unkn own) date) outpatient unknown) follow-up. (unknown) (no (unknown) (unknown) shortness of (units (un known) date) breath and chest unknown) fluttering which she thinks is her lung. This has (unknown) (no (unknown) (unknown) significantly (units ( unknown) date) unknown) (unknown) (no (unknown) (unknown) unremarkable.? (units (unknown) date) unknown) (unknown) (no (unknown) (unknown) wave inversion (units (unknown) date) unknown) (unknown) (no (unknown) (unknown) zinc [ZINC] (units (un known) date) Allergy Unknown unknown) Verified 05/24/22 09:45 Result panel 13 (unknown) (no (unknown) (unknown) (no value) (units (unk nown) date) unknown) (unknown) (no (unknown) (unknown) (no value) (units (unk nown) date) unknown) (unknown) (no (unknown) (unknown) (no value) (units (unk nown) date) unknown) (unknown) (no (unknown) (unknown) 06/17/22 (units (unkno wn) date) unknown) (unknown) (no (unknown) (unknown) 10:44 (units (unkno wn) date) unknown) (unknown) (no (unknown) (unknown) GLENDY Rothman (units ( unknown) date) [id number] unknown) (unknown) (no (unknown) (unknown) Draft (units (unkno wn) date) unknown) (unknown) (no (unknown) (unknown) Family Practice (units (unknown) date) Office Visit unknown) (unknown) (no (unknown) (unknown) [facility]units ([facility] date[facility] unknown) (unknown) (no (unknown) (unknown) (no value) (units (unk nown) date) unknown) (unknown) (no (unknown) (unknown) 06/17/22 (units (unkno wn) date) unknown) (unknown) (no (unknown) (unknown) [id number] (units (unkno wn) date) unknown) (unknown) (no (unknown) (unknown) 57 yo female (units (u nknown) date) presents today for unknown) f/u from ED visit of 05/24/22. Patient states (unknown) (no (unknown) (unknown) Age/Sex: 57 / F (units (unknown) date) Date of Service: unknown) (unknown) (no (unknown) (unknown) Allergies (units (unkn own) date) unknown) (unknown) (no (unknown) (unknown) Anxiety (Unknown) (units (unknown) date) unknown) (unknown) (no (unknown) (unknown) Arthritis (units (unkn own) date) (Unknown) unknown) (unknown) (no (unknown) (unknown) Attending Dr: Faustino (units (unknown) date) Orlando Lai D.O. unknown) (unknown) (no (unknown) (unknown) BMI 27.6 (units (unkno wn) date) unknown) (unknown) (no (unknown) (unknown) BP 119/94 H (units (un known) date) unknown) (unknown) (no (unknown) (unknown) Blood Pressure (units (unknown) date) Location Rt radial unknown) (unknown) (no (unknown) (unknown) : 1965 (units (unknown) date) Acct:[id number] unknown) (unknown) (no (unknown) (unknown) Degenerative disc (units (unknown) date) disease (Unknown) unknown) (unknown) (no (unknown) (unknown) Dept at (units (unkno wn) date) . unknown) (unknown) (no (unknown) (unknown) Documented By: (units (unknown) date) Faustino Lai unknown) D.O. 06/17/22 1041 (unknown) (no (unknown) (unknown) Family History (units (unknown) date) (Reviewed 05/24/22 unknown) @ 10:21 by Joceline aLra DO) (unknown) (no (unknown) (unknown) H/O tubal (units (unkn own) date) ligation (1986) unknown) (unknown) (no (unknown) (unknown) Height 5 ft 1 in (units (unknown) date) unknown) (unknown) (no (unknown) (unknown) Intake (units (unkno wn) date) unknown) (unknown) (no (unknown) (unknown) Intake Note: (units (u nknown) date) unknown) (unknown) (no (unknown) (unknown) Intake performed (units (unknown) date) by: Katie Hameed unknown) (unknown) (no (unknown) (unknown) Intake- Clincial (units (unknown) date) Staff unknown) (unknown) (no (unknown) (unknown) Last Menstural (units (unknown) date) Cycle + Details unknown) (unknown) (no (unknown) (unknown) Loc: [facility] (units (unkno wn) date) unknown) (unknown) (no (unknown) (unknown) Medical History (units (unknown) date) (Updated 06/08/22 unknown) @ 00:00 by ) (unknown) (no (unknown) (unknown) Medications (units (un known) date) unknown) (unknown) (no (unknown) (unknown) Mother (units (unknown) date) No problems noted. unknown) (unknown) (no (unknown) (unknown) No Known Home (units ( unknown) date) Medications unknown) 03/27/18 [History Confirmed 06/17/22] (unknown) (no (unknown) (unknown) Other Menstrual (units (unknown) date) Period: Uncertain unknown) (unknown) (no (unknown) (unknown) Oxygen Delivery (units (unknown) date) Method room air unknown) (unknown) (no (unknown) (unknown) PFSH (units (unkno wn) date) unknown) (unknown) (no (unknown) (unknown) PTSD (units (unkno wn) date) (post-traumatic unknown) stress disorder) (Unknown) (unknown) (no (unknown) (unknown) Patient: (units (unkno wn) date) Yenni Robbins unknown) MR#: [id number] (unknown) (no (unknown) (unknown) Position Sitting (units (unknown) date) unknown) (unknown) (no (unknown) (unknown) Pulse 67 (units (unkno wn) date) unknown) (unknown) (no (unknown) (unknown) Pulse Oximetry (units (unknown) date) (%) 97 unknown) (unknown) (no (unknown) (unknown) Pulse Source (units (u nknown) date) Monitor unknown) (unknown) (no (unknown) (unknown) Reason For Visit (units (unknown) date) unknown) (unknown) (no (unknown) (unknown) Respiration 16 (units (unknown) date) unknown) (unknown) (no (unknown) (unknown) Salivary gland (units (unknown) date) disorder unknown) (unknown) (no (unknown) (unknown) Shoulder pain, (units (unknown) date) left (-2015) unknown) (unknown) (no (unknown) (unknown) Signed By: (units (unk nown) date) unknown) (unknown) (no (unknown) (unknown) Smoking Status: (units (unknown) date) Former smoker unknown) (unknown) (no (unknown) (unknown) Surgical History (units (unknown) date) (Reviewed 05/24/22 unknown) @ 10:21 by Joceline Lara DO) (unknown) (no (unknown) (unknown) Temp 97.3 F L (units ( unknown) date) unknown) (unknown) (no (unknown) (unknown) Temp Source (units (un known) date) Temporal Artery unknown) Scan (unknown) (no (unknown) (unknown) This note may (units ( unknown) date) have been all or unknown) partially generated using voice recognition (unknown) (no (unknown) (unknown) Tobacco + (units (unkn own) date) Substance Use unknown) (unknown) (no (unknown) (unknown) Tobacco Status (units (unknown) date) unknown) (unknown) (no (unknown) (unknown) Visit Reasons: ER (units (unknown) date) f/u from 05/24/22 unknown) (unknown) (no (unknown) (unknown) Vitals (units (unkno wn) date) unknown) (unknown) (no (unknown) (unknown) Weight 146 lb 6 (units (unknown) date) oz unknown) (unknown) (no (unknown) (unknown) aspirin [ASPIRIN] (units (unknown) date) Allergy (Unknown, unknown) Verified 06/17/22 10:44) (unknown) (no (unknown) (unknown) beea venom (units (unk nown) date) Allergy (Unknown, unknown) Uncoded 06/17/22 10:44) (unknown) (no (unknown) (unknown) bupropion (units (unkn own) date) [BUPROPION] unknown) Allergy (Unknown, Verified 06/17/22 10:44) (unknown) (no (unknown) (unknown) codiene Allergy (units (unknown) date) (Unknown, Uncoded unknown) 06/17/22 10:44) (unknown) (no (unknown) (unknown) diphenhydramine (units (unknown) date) [DIPHENHYDRAMINE] unknown) Allergy (Unknown, Verified 06/17/22 10:44) (unknown) (no (unknown) (unknown) doxepin [DOXEPIN] (units (unknown) date) Allergy (Unknown, unknown) Verified 06/17/22 10:44) (unknown) (no (unknown) (unknown) epinephrine (units (un known) date) [EPINEPHRINE] unknown) Allergy (Unknown, Verified 06/17/22 10:44) (unknown) (no (unknown) (unknown) have occurred. If (units (unknown) date) there are any unknown) questions, please contact the Medical Records (unknown) (no (unknown) (unknown) may occur. (units (unk nown) date) Occasional unknown) wrong-word or 'sound-alike' substitutions may have (unknown) (no (unknown) (unknown) minerals Allergy (units (unknown) date) (Unknown, Uncoded unknown) 06/17/22 10:44) (unknown) (no (unknown) (unknown) morphine (units (unkno wn) date) [MORPHINE] Allergy unknown) (Unknown, Verified 06/17/22 10:44) (unknown) (no (unknown) (unknown) occurred due to (units (unknown) date) the inherent unknown) limitations of voice recognition software. Please (unknown) (no (unknown) (unknown) olanzapine (units (unk nown) date) [OLANZAPINE] unknown) Allergy (Unknown, Verified 06/17/22 10:44) (unknown) (no (unknown) (unknown) read the note (units ( unknown) date) carefully and unknown) recognize, using context, where these substitutions (unknown) (no (unknown) (unknown) software. (units (unkn own) date) Although every unknown) effort is made to edit content, housecalls nurse errors (unknown) (no (unknown) (unknown) that she went to (units (unknown) date) the ED c/o lung unknown) and coughing up dark phlegm, SOB and loss of (unknown) (no (unknown) (unknown) weight. (units (unkno wn) date) unknown) (unknown) (no (unknown) (unknown) zinc [ZINC] (units (un known) date) Allergy (Unknown, unknown) Verified 06/17/22 10:44) Result panel 14 (unknown) (no (unknown) (unknown) (no value) (units (unk nown) date) unknown) (unknown) (no (unknown) (unknown) Assessment and (units (unknown) date) Plan: unknown) (unknown) (no (unknown) (unknown) Qualifiers: (units (un known) date) unknown) (unknown) (no (unknown) (unknown) Status: Acute (units ( unknown) date) unknown) (unknown) (no (unknown) (unknown) (no value) (units (unk nown) date) unknown) (unknown) (no (unknown) (unknown) (no value) (units (unk nown) date) unknown) (unknown) (no (unknown) (unknown) 06/17/22 (units (unkno wn) date) unknown) (unknown) (no (unknown) (unknown) 10:44 (units (unkno wn) date) unknown) (unknown) (no (unknown) (unknown) [place], [place] (units ( unknown) date) [id number] unknown) (unknown) (no (unknown) (unknown) Draft (units (unkno wn) date) unknown) (unknown) (no (unknown) (unknown) Dyspnea type: (units ( unknown) date) dyspnea on unknown) exertion Qualified Code(s): R06.09 - Other (unknown) (no (unknown) (unknown) Family Practice (units (unknown) date) Office Visit unknown) (unknown) (no (unknown) (unknown) [facility] ([facility] ([facility] date[facility] unknown) (unknown) (no (unknown) (unknown) (no value) (units (unk nown) date) unknown) (unknown) (no (unknown) (unknown) (1) Dyspnea: (units (u nknown) date) unknown) (unknown) (no (unknown) (unknown) 06/17/22 (units (unkno wn) date) unknown) (unknown) (no (unknown) (unknown) [id number] (units (unkno wn) date) unknown) (unknown) (no (unknown) (unknown) 2 ROS per HPI (units ( unknown) date) patient denies any unknown) nocturnal breathing difficulties PND wheezing (unknown) (no (unknown) (unknown) 57 yo female (units (u nknown) date) presents today for unknown) f/u from ED visit of 05/24/22. Patient states (unknown) (no (unknown) (unknown) 57-year-old (units (un known) date) female ex smoker unknown) presents the clinic to follow-up in regards to her (unknown) (no (unknown) (unknown) Abdomen-soft (units (u nknown) date) nontender, no HSM, unknown) no palpable masses rebound or guarding (unknown) (no (unknown) (unknown) Age/Sex: 57 / F (units (unknown) date) Date of Service: unknown) (unknown) (no (unknown) (unknown) Allergies (units (unkn own) date) unknown) (unknown) (no (unknown) (unknown) Anxiety (Unknown) (units (unknown) date) unknown) (unknown) (no (unknown) (unknown) Arthritis (units (unkn own) date) (Unknown) unknown) (unknown) (no (unknown) (unknown) Assessment + Plan (units (unknown) date) unknown) (unknown) (no (unknown) (unknown) Attending Dr: Faustino (units (unknown) date) Orlando Lai D.O. unknown) (unknown) (no (unknown) (unknown) BMI 27.6 (units (unkno wn) date) unknown) (unknown) (no (unknown) (unknown) BP 119/94 H (units (un known) date) unknown) (unknown) (no (unknown) (unknown) Blood Pressure (units (unknown) date) Location Rt radial unknown) (unknown) (no (unknown) (unknown) Chest-heart (units (unk nown) date) regular rate and unknown) rhythm lungs clear to auscultation no wheezes rales (unknown) (no (unknown) (unknown) Chief Complaint (units (unknown) date) unknown) (unknown) (no (unknown) (unknown) Chief Complaint: (units (unknown) date) Follow-up unknown) emergency room visit (unknown) (no (unknown) (unknown) : 1965 (units (unknown) date) Acct:[id number] unknown) (unknown) (no (unknown) (unknown) Degenerative disc (units (unknown) date) disease (Unknown) unknown) (unknown) (no (unknown) (unknown) Dept at (units (unkno wn) date) . unknown) (unknown) (no (unknown) (unknown) Details: (units (unkno wn) date) unknown) (unknown) (no (unknown) (unknown) Documented By: (units (unknown) date) Faustino Lai unknown) D.O. 06/17/22 1041 (unknown) (no (unknown) (unknown) Dyspnea (units (unkno wn) date) unknown) (unknown) (no (unknown) (unknown) Exam (units (unkno wn) date) unknown) (unknown) (no (unknown) (unknown) Exam Narrative (units (unknown) date) unknown) (unknown) (no (unknown) (unknown) Exam Narrative: (units (unknown) date) unknown) (unknown) (no (unknown) (unknown) Family History (units (unknown) date) (Reviewed 06/17/22 unknown) @ 18:29 by Faustino Lai DO) (unknown) (no (unknown) (unknown) General physical (units (unknown) date) examination, unknown) physical examination (unknown) (no (unknown) (unknown) H/O tubal (units (unkn own) date) ligation (1987) unknown) (unknown) (no (unknown) (unknown) HPI (units (unkno wn) date) unknown) (unknown) (no (unknown) (unknown) Head-normocephali (units (unknown) date) c atraumatic, eyes unknown) PERRLA EOMI, (unknown) (no (unknown) (unknown) Height 5 ft 1 in (units (unknown) date) unknown) (unknown) (no (unknown) (unknown) Intake (units (unkno wn) date) unknown) (unknown) (no (unknown) (unknown) Intake Note: (units (u nknown) date) unknown) (unknown) (no (unknown) (unknown) Intake performed (units (unknown) date) by: Katie Hameed unknown) (unknown) (no (unknown) (unknown) Intake- Clincial (units (unknown) date) Staff unknown) (unknown) (no (unknown) (unknown) Last Menstural (units (unknown) date) Cycle + Details unknown) (unknown) (no (unknown) (unknown) Loc: [facility] (units (unkno wn) date) unknown) (unknown) (no (unknown) (unknown) Medical History (units (unknown) date) (Updated 06/17/22 unknown) @ 18:29 by Faustino Lai DO) (unknown) (no (unknown) (unknown) Medications (units (un known) date) unknown) (unknown) (no (unknown) (unknown) Mother (units (unknown) date) No problems noted. unknown) (unknown) (no (unknown) (unknown) Neck-supple no (units (unknown) date) thyromegaly, JVD unknown) or lymphadenopathy (unknown) (no (unknown) (unknown) No Known Home (units ( unknown) date) Medications unknown) 03/27/18 [History Confirmed 06/17/22] (unknown) (no (unknown) (unknown) Other Menstrual (units (unknown) date) Period: Uncertain unknown) (unknown) (no (unknown) (unknown) Oxygen Delivery (units (unknown) date) Method room air unknown) (unknown) (no (unknown) (unknown) PFSH (units (unkno wn) date) unknown) (unknown) (no (unknown) (unknown) PFTs referral to (units (unknown) date) pulmonology with unknown) the her next step which will be undertaken (unknown) (no (unknown) (unknown) PTSD (units (unkno wn) date) (post-traumatic unknown) stress disorder) (Unknown) (unknown) (no (unknown) (unknown) Patient: (units (unkno wn) date) Yenni Robbins F unknown) MR#: [id number] (unknown) (no (unknown) (unknown) Position Sitting (units (unknown) date) unknown) (unknown) (no (unknown) (unknown) Pulse 67 (units (unkno wn) date) unknown) (unknown) (no (unknown) (unknown) Pulse Oximetry (units (unknown) date) (%) 97 unknown) (unknown) (no (unknown) (unknown) Pulse Source (units (u nknown) date) Monitor unknown) (unknown) (no (unknown) (unknown) ROS (units (unkno wn) date) unknown) (unknown) (no (unknown) (unknown) ROS Narrative (units ( unknown) date) unknown) (unknown) (no (unknown) (unknown) ROS Narrative: (units (unknown) date) unknown) (unknown) (no (unknown) (unknown) Reason For Visit (units (unknown) date) unknown) (unknown) (no (unknown) (unknown) Respiration 16 (units (unknown) date) unknown) (unknown) (no (unknown) (unknown) Salivary gland (units (unknown) date) disorder unknown) (unknown) (no (unknown) (unknown) Shoulder pain, (units (unknown) date) left (-2015) unknown) (unknown) (no (unknown) (unknown) Signed By: (units (unk nown) date) unknown) (unknown) (no (unknown) (unknown) Smoking Status: (units (unknown) date) Former smoker unknown) (unknown) (no (unknown) (unknown) Surgical History (units (unknown) date) (Reviewed 06/17/22 unknown) @ 18:29 by Faustino Lai DO) (unknown) (no (unknown) (unknown) Temp 97.3 F L (units ( unknown) date) unknown) (unknown) (no (unknown) (unknown) Temp Source (units (un known) date) Temporal Artery unknown) Scan (unknown) (no (unknown) (unknown) The patient does (units (unknown) date) have some unknown) intermittent reactive airway disease and increasing (unknown) (no (unknown) (unknown) This note may (units ( unknown) date) have been all or unknown) partially generated using voice recognition (unknown) (no (unknown) (unknown) Tobacco + (units (unkn own) date) Substance Use unknown) (unknown) (no (unknown) (unknown) Tobacco Status (units (unknown) date) unknown) (unknown) (no (unknown) (unknown) Visit Reasons: ER (units (unknown) date) f/u from 05/24/22 unknown) (unknown) (no (unknown) (unknown) Vital signs are (units (unknown) date) reported, charted unknown) and reviewed with patient (unknown) (no (unknown) (unknown) Vitals (units (unkno wn) date) unknown) (unknown) (no (unknown) (unknown) Weight 146 lb 6 (units (unknown) date) oz unknown) (unknown) (no (unknown) (unknown) Well appearing (units (unknown) date) adult without unknown) complaints, contributed to history and exam (unknown) (no (unknown) (unknown) aspirin [ASPIRIN] (units (unknown) date) Allergy (Unknown, unknown) Verified 06/17/22 10:44) (unknown) (no (unknown) (unknown) beea venom (units (unk nown) date) Allergy (Unknown, unknown) Uncoded 06/17/22 10:44) (unknown) (no (unknown) (unknown) bupropion (units (unkn own) date) [BUPROPION] unknown) Allergy (Unknown, Verified 06/17/22 10:44) (unknown) (no (unknown) (unknown) but has had some (units (unknown) date) exposure is in the unknown) past 2 on today's visit notes no major (unknown) (no (unknown) (unknown) chief complaint (units (unknown) date) of atypical chest unknown) pain due and intermittent exertional fatigue (unknown) (no (unknown) (unknown) codiene Allergy (units (unknown) date) (Unknown, Uncoded unknown) 06/17/22 10:44) (unknown) (no (unknown) (unknown) diphenhydramine (units (unknown) date) [DIPHENHYDRAMINE] unknown) Allergy (Unknown, Verified 06/17/22 10:44) (unknown) (no (unknown) (unknown) doxepin [DOXEPIN] (units (unknown) date) Allergy (Unknown, unknown) Verified 06/17/22 10:44) (unknown) (no (unknown) (unknown) epinephrine (units (un known) date) [EPINEPHRINE] unknown) Allergy (Unknown, Verified 06/17/22 10:44) (unknown) (no (unknown) (unknown) exertional fatigue (units (unknown) date) it does not appear unknown) to be cardiac in nature would benefit from (unknown) (no (unknown) (unknown) forms of dyspnea (units (unknown) date) unknown) (unknown) (no (unknown) (unknown) from PFTs (units (unkn own) date) unknown) (unknown) (no (unknown) (unknown) have occurred. If (units (unknown) date) there are any unknown) questions, please contact the Medical Records (unknown) (no (unknown) (unknown) may occur. (units (unk nown) date) Occasional unknown) wrong-word or 'sound-alike' substitutions may have (unknown) (no (unknown) (unknown) minerals Allergy (units (unknown) date) (Unknown, Uncoded unknown) 06/17/22 10:44) (unknown) (no (unknown) (unknown) morphine (units (unkno wn) date) [MORPHINE] Allergy unknown) (Unknown, Verified 06/17/22 10:44) (unknown) (no (unknown) (unknown) occurred due to (units (unknown) date) the inherent unknown) limitations of voice recognition software. Please (unknown) (no (unknown) (unknown) of exertion. She (units (unknown) date) notes exertional unknown) fatigue with activity but no anginal like (unknown) (no (unknown) (unknown) olanzapine (units (unk nown) date) [OLANZAPINE] unknown) Allergy (Unknown, Verified 06/17/22 10:44) (unknown) (no (unknown) (unknown) or rhonchi, good (units (unknown) date) peripheral pulses unknown) (unknown) (no (unknown) (unknown) problems with the (units (unknown) date) presenting unknown) complaint chest x-ray was normal. Would benefit (unknown) (no (unknown) (unknown) productive she is (units (unknown) date) without fever unknown) today's visit. Symptoms of own more prominent (unknown) (no (unknown) (unknown) read the note (units ( unknown) date) carefully and unknown) recognize, using context, where these substitutions (unknown) (no (unknown) (unknown) really a heavy (units (unknown) date) smoker with an unknown) approximate 8 pack year history (unknown) (no (unknown) (unknown) recent visit 3 (units (unknown) date) weeks ago to the unknown) emergency room. She was initially seen for a (unknown) (no (unknown) (unknown) sense the (units (unkno wn) date) beginning of the unknown) year. Patient quit smoking 8 years ago and was never (unknown) (no (unknown) (unknown) software. (units (unkn own) date) Although every unknown) effort is made to edit content, housecalls nurse errors (unknown) (no (unknown) (unknown) symptoms. She (units ( unknown) date) does have some unknown) episodes of coughing that intermittently a become (unknown) (no (unknown) (unknown) that she has had (units (unknown) date) now when she goes unknown) up an incline or pushes herself to any level (unknown) (no (unknown) (unknown) that she went to (units (unknown) date) the ED c/o lung unknown) and coughing up dark phlegm, SOB and loss of (unknown) (no (unknown) (unknown) today consider (units (unknown) date) trial use of unknown) albuterol (unknown) (no (unknown) (unknown) weight. (units (unkno wn) date) unknown) (unknown) (no (unknown) (unknown) zinc [ZINC] (units (un known) date) Allergy (Unknown, unknown) Verified 06/17/22 10:44) Result panel 15 (unknown) (no (unknown) (unknown) (no value) (units (unk nown) date) unknown) (unknown) (no (unknown) (unknown) Assessment and (units (unknown) date) Plan: unknown) (unknown) (no (unknown) (unknown) Medications: (units (u nknown) date) unknown) (unknown) (no (unknown) (unknown) Orders: (units (unkno wn) date) unknown) (unknown) (no (unknown) (unknown) Qualifiers: (units (un known) date) unknown) (unknown) (no (unknown) (unknown) Status: Acute (units ( unknown) date) unknown) (unknown) (no (unknown) (unknown) (no value) (units (unk nown) date) unknown) (unknown) (no (unknown) (unknown) (no value) (units (unk nown) date) unknown) (unknown) (no (unknown) (unknown) 06/17/22 (units (unkno wn) date) unknown) (unknown) (no (unknown) (unknown) 06/17/22 1833 (units ( unknown) date) unknown) (unknown) (no (unknown) (unknown) 10:44 (units (unkno wn) date) unknown) (unknown) (no (unknown) (unknown) GLENDY Rothman (units ( unknown) date) [id number] unknown) (unknown) (no (unknown) (unknown) Dyspnea type: (units ( unknown) date) dyspnea on unknown) exertion Qualified Code(s): R06.09 - Other (unknown) (no (unknown) (unknown) Family Practice (units (unknown) date) Office Visit unknown) (unknown) (no (unknown) (unknown) [facility] ([facility] unknown) (unknown) (no (unknown) (unknown) Signed (units (unkno wn) date) unknown) (unknown) (no (unknown) (unknown) Use (units (unkno wn) date) intermittently for unknown) shortness of breath 2 puffs inhalation Q6H PRN 6.7 (unknown) (no (unknown) (unknown) (no value) (units (unk nown) date) unknown) (unknown) (no (unknown) (unknown) (1) Dyspnea: (units (u nknown) date) unknown) (unknown) (no (unknown) (unknown) 06/17/22 (units (unkno wn) date) unknown) (unknown) (no (unknown) (unknown) [id number] (units (unkno wn) date) unknown) (unknown) (no (unknown) (unknown) 2 ROS per HPI (units ( unknown) date) patient denies any unknown) nocturnal breathing difficulties PND wheezing (unknown) (no (unknown) (unknown) 57 yo female (units (u nknown) date) presents today for unknown) f/u from ED visit of 05/24/22. Patient states (unknown) (no (unknown) (unknown) 57-year-old (units (un known) date) female ex smoker unknown) presents the clinic to follow-up in regards to her (unknown) (no (unknown) (unknown) Abdomen-soft (units (u nknown) date) nontender, no HSM, unknown) no palpable masses rebound or guarding (unknown) (no (unknown) (unknown) Age/Sex: 57 / F (units (unknown) date) Date of Service: unknown) (unknown) (no (unknown) (unknown) Allergies (units (unkn own) date) unknown) (unknown) (no (unknown) (unknown) Anxiety (Unknown) (units (unknown) date) unknown) (unknown) (no (unknown) (unknown) Arthritis (units (unkn own) date) (Unknown) unknown) (unknown) (no (unknown) (unknown) Assessment + Plan (units (unknown) date) unknown) (unknown) (no (unknown) (unknown) Attending Dr: Faustino (units (unknown) date) Orlando Lai D.O. unknown) (unknown) (no (unknown) (unknown) BMI 27.6 (units (unkno wn) date) unknown) (unknown) (no (unknown) (unknown) BP 119/94 H (units (un known) date) unknown) (unknown) (no (unknown) (unknown) Blood Pressure (units (unknown) date) Location Rt radial unknown) (unknown) (no (unknown) (unknown) Chest-heart (units (unk nown) date) regular rate and unknown) rhythm lungs clear to auscultation no wheezes rales (unknown) (no (unknown) (unknown) Chief Complaint (units (unknown) date) unknown) (unknown) (no (unknown) (unknown) Chief Complaint: (units (unknown) date) Follow-up unknown) emergency room visit (unknown) (no (unknown) (unknown) : 1965 (units (unknown) date) Acct:[id number] unknown) (unknown) (no (unknown) (unknown) Degenerative disc (units (unknown) date) disease (Unknown) unknown) (unknown) (no (unknown) (unknown) Dept at (units (unkno wn) date) . unknown) (unknown) (no (unknown) (unknown) Details: (units (unkno wn) date) unknown) (unknown) (no (unknown) (unknown) Documented By: (units (unknown) date) Faustino Lai unknownMurphy D.O. 06/17/22 1041 (unknown) (no (unknown) (unknown) Dyspnea (units (unkno wn) date) unknown) (unknown) (no (unknown) (unknown) Exam (units (unkno wn) date) unknown) (unknown) (no (unknown) (unknown) Exam Narrative (units (unknown) date) unknown) (unknown) (no (unknown) (unknown) Exam Narrative: (units (unknown) date) unknown) (unknown) (no (unknown) (unknown) Family History (units (unknown) date) (Reviewed 06/17/22 unknown) @ 18:29 by Faustino Lai DO) (unknown) (no (unknown) (unknown) General physical (units (unknown) date) examination, unknown) physical examination (unknown) (no (unknown) (unknown) H/O tubal (units (unkn own) date) ligation (1986) unknown) (unknown) (no (unknown) (unknown) HPI (units (unkno wn) date) unknown) (unknown) (no (unknown) (unknown) Head-normocephali (units (unknown) date) c atraumatic, eyes unknown) PERRLA EOMI, (unknown) (no (unknown) (unknown) Height 5 ft 1 in (units (unknown) date) unknown) (unknown) (no (unknown) (unknown) Intake (units (unkno wn) date) unknown) (unknown) (no (unknown) (unknown) Intake Note: (units (u nknown) date) unknown) (unknown) (no (unknown) (unknown) Intake performed (units (unknown) date) by: Katie Hameed unknown) (unknown) (no (unknown) (unknown) Intake- Clincial (units (unknown) date) Staff unknown) (unknown) (no (unknown) (unknown) Last Menstural (units (unknown) date) Cycle + Details unknown) (unknown) (no (unknown) (unknown) Loc: [facility] (units (unkno wn) date) unknown) (unknown) (no (unknown) (unknown) Medical History (units (unknown) date) (Updated 06/17/22 unknown) @ 18:29 by Faustino Lai DO) (unknown) (no (unknown) (unknown) Medications (units (un known) date) unknown) (unknown) (no (unknown) (unknown) Mother (units (unknown) date) No problems noted. unknown) (unknown) (no (unknown) (unknown) Neck-supple no (units (unknown) date) thyromegaly, JVD unknown) or lymphadenopathy (unknown) (no (unknown) (unknown) New (units (unkno wn) date) unknown) (unknown) (no (unknown) (unknown) Other Menstrual (units (unknown) date) Period: Uncertain unknown) (unknown) (no (unknown) (unknown) Oxygen Delivery (units (unknown) date) Method room air unknown) (unknown) (no (unknown) (unknown) PFSH (units (unkno wn) date) unknown) (unknown) (no (unknown) (unknown) PFTs referral to (units (unknown) date) pulmonology with unknown) the her next step which will be undertaken (unknown) (no (unknown) (unknown) PTSD (units (unkno wn) date) (post-traumatic unknown) stress disorder) (Unknown) (unknown) (no (unknown) (unknown) Patient: (units (unkno wn) date) Yenni Robbins unknown) MR#: [id number] (unknown) (no (unknown) (unknown) Position Sitting (units (unknown) date) unknown) (unknown) (no (unknown) (unknown) Pulse 67 (units (unkno wn) date) unknown) (unknown) (no (unknown) (unknown) Pulse Oximetry (units (unknown) date) (%) 97 unknown) (unknown) (no (unknown) (unknown) Pulse Source (units (u nknown) date) Monitor unknown) (unknown) (no (unknown) (unknown) ROS (units (unkno wn) date) unknown) (unknown) (no (unknown) (unknown) ROS Narrative (units ( unknown) date) unknown) (unknown) (no (unknown) (unknown) ROS Narrative: (units (unknown) date) unknown) (unknown) (no (unknown) (unknown) Reason For Visit (units (unknown) date) unknown) (unknown) (no (unknown) (unknown) Referral (units (unkno wn) date) Pulmonology R06.09 unknown) - Other forms of dyspnea (unknown) (no (unknown) (unknown) Referrals (units (unkn own) date) unknown) (unknown) (no (unknown) (unknown) Respiration 16 (units (unknown) date) unknown) (unknown) (no (unknown) (unknown) Salivary gland (units (unknown) date) disorder unknown) (unknown) (no (unknown) (unknown) Shoulder pain, (units (unknown) date) left (-2015) unknown) (unknown) (no (unknown) (unknown) Signed By: (units (unk nown) date) <Electronically unknown) signed by Tisha HainesOYeimi> (unknown) (no (unknown) (unknown) Smoking Status: (units (unknown) date) Former smoker unknown) (unknown) (no (unknown) (unknown) Surgical History (units (unknown) date) (Reviewed 06/17/22 unknown) @ 18:29 by Faustino Lai DO) (unknown) (no (unknown) (unknown) Temp 97.3 F L (units ( unknown) date) unknown) (unknown) (no (unknown) (unknown) Temp Source (units (un known) date) Temporal Artery unknown) Scan (unknown) (no (unknown) (unknown) The patient does (units (unknown) date) have some unknown) intermittent reactive airway disease and increasing (unknown) (no (unknown) (unknown) This note may (units ( unknown) date) have been all or unknown) partially generated using voice recognition (unknown) (no (unknown) (unknown) Tobacco + (units (unkn own) date) Substance Use unknown) (unknown) (no (unknown) (unknown) Tobacco Status (units (unknown) date) unknown) (unknown) (no (unknown) (unknown) Visit Reasons: ER (units (unknown) date) f/u from 05/24/22 unknown) (unknown) (no (unknown) (unknown) Vital signs are (units (unknown) date) reported, charted unknown) and reviewed with patient (unknown) (no (unknown) (unknown) Vitals (units (unkno wn) date) unknown) (unknown) (no (unknown) (unknown) Weight 146 lb 6 (units (unknown) date) oz unknown) (unknown) (no (unknown) (unknown) Well appearing (units (unknown) date) adult without unknown) complaints, contributed to history and exam (unknown) (no (unknown) (unknown) albuterol sulfate (units (unknown) date) 90 mcg/actuation unknown) (unknown) (no (unknown) (unknown) albuterol sulfate (units (unknown) date) 90 mcg/actuation unknown) aerosol inhaler 2 puff inhalation Q6H PRN (unknown) (no (unknown) (unknown) aspirin [ASPIRIN] (units (unknown) date) Allergy (Unknown, unknown) Verified 06/17/22 10:44) (unknown) (no (unknown) (unknown) beea venom (units (unk nown) date) Allergy (Unknown, unknown) Uncoded 06/17/22 10:44) (unknown) (no (unknown) (unknown) bupropion (units (unkn own) date) [BUPROPION] unknown) Allergy (Unknown, Verified 06/17/22 10:44) (unknown) (no (unknown) (unknown) but has had some (units (unknown) date) exposure is in the unknown) past 2 on today's visit notes no major (unknown) (no (unknown) (unknown) chief complaint (units (unknown) date) of atypical chest unknown) pain due and intermittent exertional fatigue (unknown) (no (unknown) (unknown) codiene Allergy (units (unknown) date) (Unknown, Uncoded unknown) 06/17/22 10:44) (unknown) (no (unknown) (unknown) diphenhydramine (units (unknown) date) [DIPHENHYDRAMINE] unknown) Allergy (Unknown, Verified 06/17/22 10:44) (unknown) (no (unknown) (unknown) doxepin [DOXEPIN] (units (unknown) date) Allergy (Unknown, unknown) Verified 06/17/22 10:44) (unknown) (no (unknown) (unknown) epinephrine (units (un known) date) [EPINEPHRINE] unknown) Allergy (Unknown, Verified 06/17/22 10:44) (unknown) (no (unknown) (unknown) exertional fatigue (units (unknown) date) it does not appear unknown) to be cardiac in nature would benefit from (unknown) (no (unknown) (unknown) forms of dyspnea (units (unknown) date) unknown) (unknown) (no (unknown) (unknown) from PFTs (units (unkn own) date) unknown) (unknown) (no (unknown) (unknown) grams 0RF (units (unkn own) date) shortness of unknown) breath or wheezing (unknown) (no (unknown) (unknown) have occurred. If (units (unknown) date) there are any unknown) questions, please contact the Medical Records (unknown) (no (unknown) (unknown) may occur. (units (unk nown) date) Occasional unknown) wrong-word or 'sound-alike' substitutions may have (unknown) (no (unknown) (unknown) minerals Allergy (units (unknown) date) (Unknown, Uncoded unknown) 06/17/22 10:44) (unknown) (no (unknown) (unknown) morphine (units (unkno wn) date) [MORPHINE] Allergy unknown) (Unknown, Verified 06/17/22 10:44) (unknown) (no (unknown) (unknown) occurred due to (units (unknown) date) the inherent unknown) limitations of voice recognition software. Please (unknown) (no (unknown) (unknown) of exertion. She (units (unknown) date) notes exertional unknown) fatigue with activity but no anginal like (unknown) (no (unknown) (unknown) olanzapine (units (unk nown) date) [OLANZAPINE] unknown) Allergy (Unknown, Verified 06/17/22 10:44) (unknown) (no (unknown) (unknown) or rhonchi, good (units (unknown) date) peripheral pulses unknown) (unknown) (no (unknown) (unknown) problems with the (units (unknown) date) presenting unknown) complaint chest x-ray was normal. Would benefit (unknown) (no (unknown) (unknown) productive she is (units (unknown) date) without fever unknown) today's visit. Symptoms of own more prominent (unknown) (no (unknown) (unknown) read the note (units ( unknown) date) carefully and unknown) recognize, using context, where these substitutions (unknown) (no (unknown) (unknown) really a heavy (units (unknown) date) smoker with an unknown) approximate 8 pack year history (unknown) (no (unknown) (unknown) recent visit 3 (units (unknown) date) weeks ago to the unknown) emergency room. She was initially seen for a (unknown) (no (unknown) (unknown) sense the (units (unkno wn) date) beginning of the unknown) year. Patient quit smoking 8 years ago and was never (unknown) (no (unknown) (unknown) shortness of (units (u nknown) date) breath or wheezing unknown) #6.7 grams 06/17/22 [Rx Confirmed 06/17/22] (unknown) (no (unknown) (unknown) software. (units (unkn own) date) Although every unknown) effort is made to edit content, housecalls nurse errors (unknown) (no (unknown) (unknown) symptoms. She (units ( unknown) date) does have some unknown) episodes of coughing that intermittently a become (unknown) (no (unknown) (unknown) that she has had (units (unknown) date) now when she goes unknown) up an incline or pushes herself to any level (unknown) (no (unknown) (unknown) that she went to (units (unknown) date) the ED c/o lung unknown) and coughing up dark phlegm, SOB and loss of (unknown) (no (unknown) (unknown) today consider (units (unknown) date) trial use of unknown) albuterol (unknown) (no (unknown) (unknown) weight. (units (unkno wn) date) unknown) (unknown) (no (unknown) (unknown) zinc [ZINC] (units (un known) date) Allergy (Unknown, unknown) Verified 06/17/22 10:44) Social History No information. Vital Signs No information.
--- NOTE | 2022-07-22 12:03 | XRAY Report ---
PROCEDURE: Foot 3 View RT INDICATIONS: Trauma TECHNIQUE: 3 views of the foot were acquired. COMPARISON: None FINDINGS: Bones: No fractures or dislocations. No suspicious bony lesions. Soft tissues: No tibiotalar joint effusion. Achilles tendon appears normal. IMPRESSION: No acute fracture. No osseous lesion. If symptoms and/or clinical suspicion for pathology continue, f urther assessment with repeat plain films, or advanced imaging (e.g., CT, MRI, or bone scan) is recom mended for further assessment. Reviewed by: Marcelo Peterosn MD on 07/22/2022 12:02 PM PDT Approved by: Marcelo Peterson MD on 07/22/2022 12:02 PM PDT Station ID: [id number]
--- NOTE | 2022-07-22 13:16 | ED Physician Documentation ---
PD HPI LOWER EXT INJURY - Stated complaint Stated Complaint: RT FOOT PX - Chief complaint Chief Complaint: Ext Problem - History obtained from History obtained from: Patient - History of Present Illness PD HPI LOW EXT INJURY LOCATION: Right, Foot - Additional information Additional information: Patient is a 57-year-old female presenting for evaluation of right foot pain this been present for 2 to 3 days. On Tuesday she was standing for prolonged amount of time making flower arrangements with no shoes on. She says since a few days ago she has had discomfort in the right foot that feels Sharp and throbbing and worse with Walking or certain movements of her foot. She does not take blood thinners. She denies other known injuries. Review of Systems Constitutional: denies: Fever Cardiac: denies: Chest pain / pressure Respiratory: denies: Dyspnea GI: denies: Abdominal Pain Skin: denies: Rash Musculoskeletal: reports: Extremity pain Neurologic: denies: Head injury PD PAST MEDICAL HISTORY - Past Medical History Psych: Anxiety - Past Surgical History Past Surgical History: No - Present Medications Home Medications: Ambulatory Orders Medication Instructions Recorded Confirmed Lorazepam [Ativan] 1 mg PO Q6HR PRN 09/21/15 10/05/15 Marijuana 09/21/15 10/05/15 diazePAM [Valium] 5 - 10 mg PO DAILY PRN #5 tablet 09/21/15 10/05/15 ondansetron HCL [Zofran] 4 mg PO Q6HR PRN #14 tablet 09/21/15 10/05/15 Promethazine [Phenergan] 25 mg PO Q6H PRN #10 tab 09/25/15 10/05/15 Sulfamethoxazole/Trimethoprim 1 each PO BID #14 tablet 10/05/15 [Sulfamethoxazole-Tmp Ds Tablet] diazePAM [Valium] 5 mg PO TID PRN #15 tablet 10/05/15 Nitrofurantoin Monohyd/M-Cryst 100 mg PO BID 5 Days capsule 11/18/16 [Macrobid 100 mg Capsule] - Allergies Allergies/Adverse Reactions: Allergies Allergy/AdvReac Type Severity Reaction Status Date / Time codeine Allergy Itching Verified 07/22/22 11:46 diphenhydramine HCl * Allergy Dizziness Verified 07/22/22 11:46 [From Benadryl] aspirin AdvReac Nausea Verified 07/22/22 11:46 - Social History Does the pt smoke?: No Smoking Status: Never smoker Does the pt drink ETOH?: No - Immunizations Immunizations are current?: No PD ED PE NORMAL - General General: Alert and oriented X 3, No acute distress, Well developed/nourished - HEENT HEENT: Atraumatic - Respiratory Respiratory: No respiratory distress - Derm Derm: Warm and dry - Extremities Extremities: No deformity, Normal ROM s pain, No edema, No calf tenderness / cord, Other (Tenderness to dorsum of right foot, no swelling, no erythema, pedal pulses intact, no tenderness more proximally in extremity) PD ED PE EXPANDED - Extremities Feet visual: 1 - tenderness Results - Vitals Vitals: Vital Signs - 24 hr 07/22/22 11:43 Temperature 36.0 C L Heart Rate 81 Respiratory 16 Rate Blood Pressure 148/78 H O2 Saturation 98 Oxygen O2 Source Room air PD MEDICAL DECISION MAKING - ED course Complexity details: reviewed results, re-evaluated patient ED course: Patient with right foot pain after prolonged standing. Neurovascularly intact. No deformities. X-rays negative for fracture dislocation. May have strain injury. Discussed continuing with supportive care. Patient is comfortable with plan for discharge as well as return precautions. Departure - Departure Disposition: 01 Home, Self Care Clinical Impression: Right foot sprain Qualifiers: Encounter type: initial encounter Qualified Code(s): S93.601A - Unspecified sprain of right foot, initial encounter Condition: Stable Instructions: ED Sprain Foot Comments: Your x-ray is negative for a fracture or dislocated bone. You may have a sprain injury.You can use an Tom wrap to help support the foot. Please continue with ice, elevation, rest and anti-inflammatory such as ibuprofen or acetaminophen. If any worsening symptoms please return to the ER.
== END 2022-07-22 14:00 | disposition home or self-care (01) ==
LOC: ED 11:35
DX: S93.601A Unspecified sprain of right foot, initial encounter (principal); X50.1XXA Overexertion from prolonged static or awkward postures, initial encounter; Y93.89 Activity, other specified
CPT/HCPCS: 99282; 99283